=== PATIENT | male | born 1935 | race Caucasian/White ===

== ENCOUNTER → 2019-08-28 10:09 | Outpatient (CLI) | payer MEDICARE, OTHER, SELFPAY ==
--- NOTE | 2019-08-28 | US_ITS ---
APPROVED REPORT Exam Type: Lower Extremity Segmental Pressures Cloth Stretcher: Lacy Hare CRT Indications Claudication: Risk Factors Hypertension Pressures/Indices Right Indices Left Indices Brachial 161.00 mmHg Brachial 164.00 mmHg Low Thigh 183.00 mmHg 1.12 Low Thigh 180.00 mmHg 1.10 Calf 206.00 mmHg 1.26 Calf 198.00 mmHg 1.21 Ankle(PT) 209.00 mmHg 1.27 Ankle(PT) 209.00 mmHg 1.27 Ankle(DP) 141.00 mmHg 0.86 Ankle(DP) 187.00 mmHg 1.14 Digit 129.00 mmHg 0.79 Digit 130.00 mmHg 0.79 Findings R KANE 1.3 L KANE 1.3 R TBI 0.8 L TBI 0.8 NORMAL WAVEFORMS, lower extremity tremors noted thru out exam NORMAL PULSES Conclusion Normal appearing resting noninvasive lower extremity arterial study. Electronically signed by : Noe Mercado MD 08/28/2019 16:08:14
== END ==
PROVIDERS: PCP Family Medicine; Visit Provider Family Medicine
DX: M79.604 Pain in right leg (principal); I70.213 Atherosclerosis of native arteries of extremities with intermittent claudication, bilateral legs
CPT/HCPCS: 93923

== ENCOUNTER 2019-10-09 15:38 | Inpatient (IN) | payer MEDICARE, OTHER, SELFPAY ==
[2019-10-09] VITALS (18 sets, daily range): BP systolic 139–161; BP diastolic 74–100; PULSE 67–98; RESP 14–18; TEMP 36.5–37.1; O2SAT 92–100; BMI 19.2
--- NOTE | 2019-10-09 16:19 | HMH.HP ---
*Admission Date: 10/09/19 <Alona Swift 10/09/19 16:28> *Chief complaint: leg edema and weakness <Alona Swift 10/09/19 16:38> *History of present illness: Mr. Shaw is an 84-year-old male with a history of hypertension, mitral valve prolapse, atrial fibrillation on Xarelto therapy, diverticulosis, and a history of a GI bleed. He states over the past few weeks, he has had increased lower extremity edema that does not improve with elevating his legs. He states he has had some fatigue and weakness in his legs. He denies any shortness of breath, chest pain, dizziness, abdominal pain, dark stools, or bright red blood in his stool. He was seen in the office today for evaluation and a CBC revealed a hemoglobin of 6.3 and hematocrit of 20.6. He was admitted for a surgical consult for possible GI bleed and a blood transfusion. <Alona Swift 10/09/19 16:38> [facility] History I have reviewed the patient's past medical history: Yes <Alona Swift 10/09/19 16:28> Medical History: Reports:: Atrial Fibrillation, Hypertension, Ulcer Denies:: Cancer, Diabetes Mellitus Type 1, Diabetes Mellitus Type 2, MRSA <Alona Swift 10/09/19 16:28> *Have you ever received a pneumonia vaccine?: Yes <Alona Swift 10/09/19 16:28> *Have you received a flu vaccine this season?: Yes <Alona Swift 10/09/19 16:28> Other Medical History: Reports: Anemia <Alona Swift 10/09/19 16:28> Comment:: GI bleed, MVP, basal cell carcinoma, Diverticulosis <Alona Swift 10/09/19 16:28> Other Surgeries: Yes: Colonoscopy, EGD <Alona Swift 10/09/19 16:28> Comment: Upper eye lid <Alona Swift 10/09/19 16:28> - *Social History Educational Level: Attended High School <Alona Swift 10/09/19 16:28> Smoking Status: Never smoker <Alona Swift 10/09/19 16:28> Alcohol Intake: never <Alona Swift 10/09/19 16:28> *Occupational Status:: retired <Alona Swift 10/09/19 16:28> Housing: house <Alona Swift 10/09/19 16:28> Household Members: spouse <Alona Swift 10/09/19 16:28> *Travel in the last 8 weeks: None <Alona Swift 10/09/19 16:28> Family Hx:: Anemia, Stroke, Other (MS) <Alona Swift 10/09/19 16:28> Review of Systems - Constitutional Reports fatigue, Reports weakness, Denies body ache(s), Denies chills <Alona Swift 10/09/19 16:28> - Eyes Denies blurry vision, Denies double vision <Alona Swift 10/09/19 16:28> - ENT Reports nasal congestion, Denies sore throat <Alona Swift 10/09/19 16:28> - *Cardiovascular Reports leg swelling, Denies chest pain, Denies shortness of breath <Alona Swift 10/09/19 16:28> - *Respiratory Denies chest congestion, Denies cough, Denies shortness of breath <Scout Swifta 10/09/19 16:28> - *Gastrointestinal Denies abdominal pain, Denies loose stools, Denies bright, red blood in stools, Denies black, tarry stools, Denies nausea, Denies vomiting <Alona Swift 10/09/19 16:28> - *Genitourinary Denies difficulty urinating, Denies painful urination <Alona Swift 10/09/19 16:28> - *Musculoskeletal Denies joint pain, Denies body aches <Alona Swift 10/09/19 16:28> - *Neurologic Reports weakness, Denies headache(s), Denies dizziness <Alona Swift 10/09/19 16:28> Meds Allergies Allergy/AdvReac Type Severity Reaction Status Date / Time No Known Allergies Allergy Unverified 06/18/17 14:53 <Arturo Sinclair 10/09/19 17:14> Exam Vital signs and Labs for Last 24 Hours: Laboratory Results - last 24 hr 10/09/19 16:10: WBC 7.9, RBC 3.32 L, Hgb 6.7 L*, Hct 24.3 L, MCV 73.1 L, MCH 20.3 L, MCHC 27.7 L, RDW 18.2 H, Plt Count 335, MPV 7.7, Neut % (Auto) 74.4, Lymph % (Auto) 16.7, [place] % (Auto) 7.0, Eos % (Auto) 1.3, Baso % (Auto) 0.6, Neut # (Auto) 5.9, Lymph # (Auto) 1.3, [place] # (Auto) 0.6, Eos # (Auto) 0.1, Baso # (Auto) 0.1 10/09/19 16:10: Sodium 138, Potassium 4.6, Chloride 106, Carbon Dioxide 26, Anion Gap 10.6, BUN 27 H, Creatinine 1.70
--- NOTE | 2019-10-09 16:32 | PC.NURSE ---
called and spoke with Eliana about consult
[2019-10-09 16:38] LABS: Basophils # 0.1 K/mm3 (0-0.2); Basophils % 0.6 % (0.1-2.0); Eosinophils # 0.1 K/mm3 (0.0-0.4); Eosinophils % 1.3 % (0.1-12.0); Hematocrit 24.3 % (42.0-52.0); Lymphocytes # 1.3 K/mm3 (0.7-4.5); Lymphocytes % 16.7 % (10-50); Mean Corpuscular HGB Conc 27.7 g/dL (31.8-35.4); Mean Corpuscular Hemoglobin 20.3 pg (27.0-31.2); Mean Corpuscular Volume 73.1 fl (80-94); Mean Platelet Volume 7.7 fl (7.4-10.4); Monocytes # 0.6 K/mm3 (0.1-1.0); Neutrophils # 5.9 K/mm3 (1.8-7.8); Neutrophils % 74.4 % (37.0-80.0); Platelet Count 335 K/mm3 (142-424); Red Blood Count 3.32 M/mm3 (4.60-6.20); Red Cell Distribution Width 18.2 % (11.5-17.5); White Blood Count 7.9 K/mm3 (4.8-10.8)
[2019-10-09 16:43] LABS: Hemoglobin 6.7 g/dL (14.1-18.0)
[2019-10-09 16:45] LABS: Chloride 106 mmol/L (98-107); Potassium 4.6 mmoL/L (3.5-5.1); Sodium 138 mmol/L (136-145)
[2019-10-09 16:47] LABS: Blood Urea Nitrogen 27 mg/dl (9-20)
[2019-10-09 16:48] LABS: Alanine Aminotransferase 30 U/L (12-78); Albumin/Globulin Ratio 1.2 (1.1-1.8); Alkaline Phosphatase 58 U/L (38-126); Anion Gap 10.6 mEq/L (5-15); Aspartate Amino Transferase 38 U/L (17-59); Bilirubin,Total 0.5 mg/dl (0.2-1.3); Calcium 9.2 mg/dl (8.4-10.2); Carbon Dioxide 26 mmol/L (22.0-30.0); Creatinine Clearance Estimated 29 mL/min (50-200); Estimated Glomerular Filt Rate 39 ml/min (>60); GFR (African American) 47 ML/MIN (>60); Globulin 3.3 g/dL (1.3-3.2); Glucose 89 mg/dl (74-100); Total Protein,Serum 7.3 g/dl (6.3-8.2)
--- NOTE | 2019-10-09 16:57 | HMH.PHAVTE ---
[facility] Pharmacy VTE Monitoring - Patient Demographics Admission date: 10/09/19 Report Date: 10/09/19 Time: 16:57 Allergies/Adverse Reactions: Patient Allergies No Known Allergies Allergy (Unverified 06/18/17 14:53) Height: 1.8 m Weight: 62.596 kg Patient Problems: Current Active Problems Anemia (Acute) Peripheral edema (Acute) Essential hypertension (Chronic) Mitral valve prolapse (Chronic) Chronic atrial fibrillation (Chronic) Diverticulosis (Chronic) History of GI bleed (Chronic) - VTE Risk Labs: VTE Related Lab Results Hgb 6.7 g/dL (14.1-18.0) L* 10/09/19 16:10 Hct 24.3 % (42.0-52.0) L 10/09/19 16:10 Plt Count 335 K/mm3 (142-424) 10/09/19 16:10 BUN 27 mg/dl (9-20) H 10/09/19 16:10 Creatinine 1.70 mg/dl (0.66-1.25) H 10/09/19 16:10 Estimated Creat Clear 29 mL/min (50-200) 10/09/19 16:10 VTE Score: 1 VTE Risk Level: Very Low Risk - Prophylaxis VTE Prophylaxis Ordered?: Yes Types of VTE Prophylaxis: TEDS Knee High Location of Applied Device: Bilateral Lower Extremeties
--- NOTE | 2019-10-09 16:58 | HMH.GSCON ---
*Admission Date: 10/09/19 *Reason for consult:: Anemia *History of present illness: Patient is an 84-year-old male with history of atrial fibrillation for which he is on Xarelto. He does have a previous history of rectal bleeding several years ago. He underwent upper endoscopy at that time which revealed some erosions/punctate ulcerations. However, given the rectal bleeding he underwent colonoscopy as an inpatient the following day. There was noted to be no obvious source but clear visualization of the cecum was difficult. He did undergo barium enema which revealed no evidence of any lesions in the right colon. Patient had been in his usual state of health until recently. He has had progressive weakness in his legs and swelling. He presented to his primary care provider's office and underwent blood work which revealed evidence of diminished hemoglobin of 6.3 and hematocrit of 20. Arrangements were made for inpatient admission and surgical consultation. Patient denies any melena. Denies any change in his bowel habits. Denies any symptoms consistent with hematochezia. Review of Systems - Review of Systems Review of systems:: pertinent systems reviewed and negative unless documented below - *Neurologic Reports weakness, Denies headache(s), Denies dizziness [facility] History Medical History: Reports:: Atrial Fibrillation, Hypertension, Ulcer Denies:: Cancer, Diabetes Mellitus Type 1, Diabetes Mellitus Type 2, MRSA *Have you ever received a pneumonia vaccine?: Yes *Have you received a flu vaccine this season?: Yes Other Medical History: Reports: Anemia Other Surgeries: Yes: Colonoscopy, EGD - *Social History Educational Level: Attended High School Smoking Status: Never smoker Alcohol Intake: never *Occupational Status:: retired Housing: house Household Members: spouse *Travel in the last 8 weeks: None Family Hx:: Anemia, Stroke, Other (MS) Meds Allergies Allergy/AdvReac Type Severity Reaction Status Date / Time No Known Allergies Allergy Unverified 06/18/17 14:53 Exam Vital signs and Labs for Last 24 Hours: Laboratory Results - last 24 hr 10/09/19 16:10: WBC 7.9, RBC 3.32 L, Hgb 6.7 L*, Hct 24.3 L, MCV 73.1 L, MCH 20.3 L, MCHC 27.7 L, RDW 18.2 H, Plt Count 335, MPV 7.7, Neut % (Auto) 74.4, Lymph % (Auto) 16.7, [place] % (Auto) 7.0, Eos % (Auto) 1.3, Baso % (Auto) 0.6, Neut # (Auto) 5.9, Lymph # (Auto) 1.3, [place] # (Auto) 0.6, Eos # (Auto) 0.1, Baso # (Auto) 0.1 10/09/19 16:10: Sodium 138, Potassium 4.6, Chloride 106, Carbon Dioxide 26, Anion Gap 10.6, BUN 27 H, Creatinine 1.70 H, Estimated Creat Clear 29, Estimated GFR 39 L, Est GFR ( Amer) 47 L, Glucose 89, Calcium 9.2, Total Bilirubin 0.5, AST 38, ALT 30, Alkaline Phosphatase 58, Total Protein 7.3, Albumin 4.0, Globulin 3.3 H, Albumin/Globulin Ratio 1.2 10/09/19 16:22: Crossmatch ([facility]) See Detail I & O for Last 24 hours: Intake & Output 10/07/19 10/08/19 10/09/19 10/10/19 11:59 11:59 11:59 11:59 Weight 138 lb - *Routine Abdominal Exam Present: soft, normoactive bowel sounds. Absent: tenderness Results - Labs 10/09/19 16:10 10/09/19 16:10 Laboratory Results - last 24 hr 10/09/19 16:10: WBC 7.9, RBC 3.32 L, Hgb 6.7 L*, Hct 24.3 L, MCV 73.1 L, MCH 20.3 L, MCHC 27.7 L, RDW 18.2 H, Plt Count 335, MPV 7.7, Neut % (Auto) 74.4, Lymph % (Auto) 16.7, [place] % (Auto) 7.0, Eos % (Auto) 1.3, Baso % (Auto) 0.6, Neut # (Auto) 5.9, Lymph # (Auto) 1.3, [place] # (Auto) 0.6, Eos # (Auto) 0.1, Baso # (Auto) 0.1 10/09/19 16:10: Sodium 138, Potassium 4.6, Chloride 106, Carbon Dioxide 26, Anion Gap 10.6, BUN 27 H, Creatinine 1.70 H, Estimated Creat Clear 29, Estimated GFR 39 L, Est GFR ( Amer) 47 L, Glucose 89, Calcium 9.2, Total Bilirubin 0.5, AST 38, ALT 30, Alkaline Phosphatase 58, Total Protein 7.3, Albumin 4.0, Globulin 3.3 H, Albumin/Globulin Ratio 1.2 10/09/19 16:22: Crossmatch ([facility]) See Detail Assessment and Plan (1) Anemia Current visit: Yes Statu
--- NOTE | 2019-10-09 19:10 | PC.NURSE ---
report given to alton
--- NOTE | 2019-10-09 19:24 | PC.NURSE ---
Addendum entered by Eliana Harris RN 10/09/19 20:12: THIS RN DID NOT CLEAR PATIENT PUMP TO DOCUMENT I&OS AT SHIFT CHANGE. PATIENT IS RECEIVING BLOOD DURING THAT TIME. VANDANA CANCHOLA AGREED TO ADD THIS RN INPUT FROM IV AT END OF SHIFT. Original Note: PATIENT ARRIVED ON FLOOR VIA WHEELCHAIR. PATIENT A&O X4, LUNGS CLEAR, PULSES EQUAL. PATIENT AMBULATED IN ROOM, UNSTEADY GAIT, WEAK. THIS RN STARTED BLOOD TRANSFUSION, NO SIDE EFFECTS NOTED, TOLERATING WELL. NO OTHER NEEDS OR CONCERNS AT THIS TIME.
[2019-10-10] VITALS (16 sets, daily range): BP systolic 125–164; BP diastolic 71–98; PULSE 62–98; RESP 14–18; TEMP 36.4–37; O2SAT 94–100; BMI 19.5
--- NOTE | 2019-10-10 05:26 | PC.NURSE ---
PT IS A&OX4. UP WITH STANDBY ASSIST IN ROOM. PT TOLERATING RA WELL. PT HAS HAD NO C/O PAIN, WEAKNESS, NA/VO THIS SHIFT. PT HAS NOT HAD A BM THUS FAR THIS SHIFT. +2 PITTING EDEMA NOTED TO BLE. LEGS ELEVATED T/O SHIFT. PT HAS RECIEVED 3 UNITS OF PRBC THIS SHIFT. PT HAS TOLERATED WELL. INTAKE AND OUTPUT BEING MONITORED BY STAFF. PT TOLERATING NPO DIET AFTER MIDNIGHT WELL. PT HAS BEEN SLIGHTLY RESTLESS T/O NIGHT. NO OTHER COMPLAINTS THUS FAR, VSS WILL CONTINUE TO MONITOR.
[2019-10-10 07:05] LABS: Chloride 109 mmol/L (98-107); Potassium 4.8 mmoL/L (3.5-5.1); Sodium 138 mmol/L (136-145)
[2019-10-10 07:08] LABS: Anion Gap 7.8 mEq/L (5-15); Blood Urea Nitrogen 21 mg/dl (9-20); Calcium 8.6 mg/dl (8.4-10.2); Carbon Dioxide 26 mmol/L (22.0-30.0); Creatinine Clearance Estimated 31 mL/min (50-200); Estimated Glomerular Filt Rate 41 ml/min (>60); GFR (African American) 50 ML/MIN (>60); Glucose 92 mg/dl (74-100)
[2019-10-10 07:13] LABS: Basophils % 0.4 % (0.1-2.0); Eosinophils # 0.1 K/mm3 (0.0-0.4); Eosinophils % 1.1 % (0.1-12.0); Hematocrit 30.8 % (42.0-52.0); Lymphocytes % 12.3 % (10-50); Mean Corpuscular HGB Conc 28.9 g/dL (31.8-35.4); Mean Corpuscular Volume 79.8 fl (80-94); Mean Platelet Volume 7.6 fl (7.4-10.4); Monocytes # 0.7 K/mm3 (0.1-1.0); Monocytes % 8.8 % (1.7-9.3); Neutrophils # 6.2 K/mm3 (1.8-7.8); Neutrophils % 77.3 % (37.0-80.0); Platelet Count 247 K/mm3 (142-424); Red Blood Count 3.86 M/mm3 (4.60-6.20); White Blood Count 8.1 K/mm3 (4.8-10.8)
[2019-10-10 07:14] LABS: Hemoglobin 8.9 g/dL (14.1-18.0)
--- NOTE | 2019-10-10 07:45 | HMH.GSPN ---
Subjective Narrative: Mr. Shaw is an 84-year-old male admitted to [facility] for anemia and fatigue; relatively asymptomatic. Reports additional bilateral lower extremity edema. Symptoms have been ongoing for approximately 2 to 3 weeks. Today is hospital day #2. Main complaint is being hungry. No significant events overnight. Patient has medication history for Xarelto. Endoscopy history reviewed with Dr. Hinojosa. Reportedly normal colonoscopy approximately 3 years ago with subsequent barium enema to evaluate cecum. Patient has received blood transfusion. Hemoglobin + hematocrit have responded appropriately. Exam Vital signs and Labs for Last 24 Hours: Temp Pulse Resp BP Pulse Ox 97.9 F 93 H 18 125/82 94 L 10/10/19 04:00 10/10/19 04:00 10/10/19 04:00 10/10/19 04:00 10/10/19 04:00 Laboratory Results - last 24 hr 10/09/19 16:10: WBC 7.9, RBC 3.32 L, Hgb 6.7 L*, Hct 24.3 L, MCV 73.1 L, MCH 20.3 L, MCHC 27.7 L, RDW 18.2 H, Plt Count 335, MPV 7.7, Neut % (Auto) 74.4, Lymph % (Auto) 16.7, [place] % (Auto) 7.0, Eos % (Auto) 1.3, Baso % (Auto) 0.6, Neut # (Auto) 5.9, Lymph # (Auto) 1.3, [place] # (Auto) 0.6, Eos # (Auto) 0.1, Baso # (Auto) 0.1 10/09/19 16:10: Sodium 138, Potassium 4.6, Chloride 106, Carbon Dioxide 26, Anion Gap 10.6, BUN 27 H, Creatinine 1.70 H, Estimated Creat Clear 29, Estimated GFR 39 L, Est GFR ( Amer) 47 L, Glucose 89, Calcium 9.2, Total Bilirubin 0.5, AST 38, ALT 30, Alkaline Phosphatase 58, Total Protein 7.3, Albumin 4.0, Globulin 3.3 H, Albumin/Globulin Ratio 1.2 10/09/19 16:22: Blood Type A Positive, Antibody Screen Negative, Crossmatch ([facility]) See Detail 10/09/19 17:15: Blood Type Confirm A Positive 10/10/19 06:42: WBC 8.1, RBC 3.86 L, Hgb 8.9 L D, Hct 30.8 L, MCV 79.8 L, MCH 23.0 L, MCHC 28.9 L, RDW 20.0 H, Plt Count 247 D, MPV 7.6, Neut % (Auto) 77.3, Lymph % (Auto) 12.3, [place] % (Auto) 8.8, Eos % (Auto) 1.1, Baso % (Auto) 0.4, Neut # (Auto) 6.2, Lymph # (Auto) 1.0, [place] # (Auto) 0.7, Eos # (Auto) 0.1, Baso # (Auto) 0.0 10/10/19 06:42: Sodium 138, Potassium 4.8, Chloride 109 H, Carbon Dioxide 26, Anion Gap 7.8, BUN 21 H, Creatinine 1.60 H, Estimated Creat Clear 31, Estimated GFR 41 L, Est GFR ( Amer) 50 L, Glucose 92, Calcium 8.6 I & O for Last 24 hours: Intake & Output 10/07/19 10/08/19 10/09/19 10/10/19 11:59 11:59 11:59 11:59 Intake Total 359 / 359 Output Total 350 / 350 Balance Weight 63.503 kg - Constitutional Comments: Nontoxic. Nonseptic. No distress. - *Routine Abdominal Exam Comments: Soft. Nontender. Nondistended. Progress Note: A&P (1) Anemia Status: Acute Current Visit: Yes (2) Peripheral edema Status: Acute Current Visit: Yes (3) Essential hypertension Status: Chronic Current Visit: Yes (4) Mitral valve prolapse Status: Chronic Current Visit: Yes (5) Chronic atrial fibrillation Status: Chronic Current Visit: Yes (6) Diverticulosis Status: Chronic Current Visit: Yes (7) History of GI bleed Status: Chronic Current Visit: Yes Assessment and Plan for All Diagnoses:: 1. Chronic anemia. Likely related to upper or lower GI bleed based on history. Recommend EGD and colonoscopy; utility of colonoscopy may be low, however, last colonoscopy was in 2016 and complete visualization of the cecum was not obtained. At this time, patient can be managed with outpatient endoscopy scheduling. No indication for emergent intervention. From perspective of surgery, Xarelto will need to be held at minimum 24 hours prior to endoscopic procedure.
--- NOTE | 2019-10-10 09:18 | HMH.ACPN2 ---
Internal Medicine - PN: Subj *Date: 10/10/19 *Time: 09:18 Interval history: Patient with no new complaints. Feels hungry today. Exam Vital signs and Labs for Last 24 Hours: Temp Pulse Resp BP Pulse Ox 97.6 F 94 H 18 138/82 94 L 10/10/19 08:00 10/10/19 08:00 10/10/19 08:00 10/10/19 08:00 10/10/19 08:00 Laboratory Results - last 24 hr 10/09/19 16:10: WBC 7.9, RBC 3.32 L, Hgb 6.7 L*, Hct 24.3 L, MCV 73.1 L, MCH 20.3 L, MCHC 27.7 L, RDW 18.2 H, Plt Count 335, MPV 7.7, Neut % (Auto) 74.4, Lymph % (Auto) 16.7, [place] % (Auto) 7.0, Eos % (Auto) 1.3, Baso % (Auto) 0.6, Neut # (Auto) 5.9, Lymph # (Auto) 1.3, [place] # (Auto) 0.6, Eos # (Auto) 0.1, Baso # (Auto) 0.1 10/09/19 16:10: Sodium 138, Potassium 4.6, Chloride 106, Carbon Dioxide 26, Anion Gap 10.6, BUN 27 H, Creatinine 1.70 H, Estimated Creat Clear 29, Estimated GFR 39 L, Est GFR ( Amer) 47 L, Glucose 89, Calcium 9.2, Total Bilirubin 0.5, AST 38, ALT 30, Alkaline Phosphatase 58, Total Protein 7.3, Albumin 4.0, Globulin 3.3 H, Albumin/Globulin Ratio 1.2 10/09/19 16:22: Blood Type A Positive, Antibody Screen Negative, Crossmatch ([facility]) See Detail 10/09/19 17:15: Blood Type Confirm A Positive 10/10/19 06:42: WBC 8.1, RBC 3.86 L, Hgb 8.9 L D, Hct 30.8 L, MCV 79.8 L, MCH 23.0 L, MCHC 28.9 L, RDW 20.0 H, Plt Count 247 D, MPV 7.6, Neut % (Auto) 77.3, Lymph % (Auto) 12.3, [place] % (Auto) 8.8, Eos % (Auto) 1.1, Baso % (Auto) 0.4, Neut # (Auto) 6.2, Lymph # (Auto) 1.0, [place] # (Auto) 0.7, Eos # (Auto) 0.1, Baso # (Auto) 0.0 10/10/19 06:42: Sodium 138, Potassium 4.8, Chloride 109 H, Carbon Dioxide 26, Anion Gap 7.8, BUN 21 H, Creatinine 1.60 H, Estimated Creat Clear 31, Estimated GFR 41 L, Est GFR ( Amer) 50 L, Glucose 92, Calcium 8.6 I & O for Last 24 hours: Intake & Output 10/07/19 10/08/19 10/09/19 10/10/19 23:59 23:59 23:59 23:59 Intake Total 0 / 359 359 / 359 Output Total 650 / 650 Balance 0 / 359 -291 / -291 Weight 138 lb 140 lb - Constitutional no acute distress - *Routine HEENT Exam Head: Present: normocephalic Eye: Present: EOMI ENT: Present: mucous membranes moist - *Routine Neck Exam Present: supple. Absent: lymphadenopathy - *Routine Respiratory Exam Present: CTA bilaterally - *Routine Cardiovascular Exam Present: RRR - *Routine Abdominal Exam Present: soft, normoactive bowel sounds. Absent: tenderness - *Routine Extremities Exam Absent: cyanosis, clubbing, edema - *Routine Skin Exam Present: warm. Absent: rash - *Routine Neurological Exam Present: alert, oriented X3 Assessment and Plan (1) Anemia Current visit: Yes Status: Acute Category: Medical Code(s): D64.9 - Anemia, unspecified (2) Peripheral edema Current visit: Yes Status: Acute Category: Medical Code(s): R60.9 - Edema, unspecified (3) Essential hypertension Current visit: Yes Status: Chronic Category: Medical Code(s): I10 - Essential (primary) hypertension (4) Mitral valve prolapse Current visit: Yes Status: Chronic Category: Medical Code(s): I34.1 - Nonrheumatic mitral (valve) prolapse (5) Chronic atrial fibrillation Current visit: Yes Status: Chronic Category: Medical Code(s): I48.20 - Chronic atrial fibrillation, unspecified (6) Diverticulosis Current visit: Yes Status: Chronic Category: Medical Code(s): K57.90 - Diverticulosis of intestine, part unspecified, without perforation or abscess without bleeding (7) History of GI bleed Current visit: Yes Status: Chronic Category: Medical Code(s): Z87.19 - Personal history of other diseases of the digestive system - Assessment and plan all Dx Assessment and Plan for all problems:: Plan to feed patient today and recheck labs tomorrow. Would prefer to have EGD done during this admission as patient has been off of Xarelto and outpatient procedures are restricted at this time.
--- NOTE | 2019-10-10 11:04 | HMH.PHAINT ---
HOME MEDICATIONS RECONCILED FROM FILL HISTORY AND FROM PATIENT.
--- NOTE | 2019-10-10 15:30 | PC.NURSE ---
Pt has rested in bed this shift, slept intermittently. Denies pain/shortness of breath. States he is very bored and wants to go home . Advised him that MD will make that decision tomorrow morning after his labs results are read. Pt verbalized understanding.
[2019-10-11 03:55] VITALS: BP 152/98; PULSE 99; RESP 18; TEMP 36.7; O2SAT 94
--- NOTE | 2019-10-11 04:59 | PC.NURSE ---
PT. HAS NOT HAD BM THIS SHIFT. AMBULATES TO/FROM BR WITH STANDBY ASSIST; TOLERATES WELL. HYPERACTIVE BOWEL SOUNDS NOTED; DENIES ABD TENDERNESS, N/V/D, SOA, PAIN AND DIZZINESS.
[2019-10-11 06:25] VITALS: BMI 19.2
[2019-10-11 07:07] LABS: Basophils % 0.4 % (0.1-2.0); Eosinophils # 0.2 K/mm3 (0.0-0.4); Eosinophils % 1.9 % (0.1-12.0); Hematocrit 32.9 % (42.0-52.0); Hemoglobin 9.3 g/dL (14.1-18.0); Lymphocytes # 0.9 K/mm3 (0.7-4.5); Lymphocytes % 10.4 % (10-50); Mean Corpuscular HGB Conc 28.4 g/dL (31.8-35.4); Mean Platelet Volume 7.7 fl (7.4-10.4); Monocytes # 0.9 K/mm3 (0.1-1.0); Monocytes % 9.5 % (1.7-9.3); Neutrophils # 6.9 K/mm3 (1.8-7.8); Neutrophils % 77.9 % (37.0-80.0); Platelet Count 264 K/mm3 (142-424); Red Blood Count 4.06 M/mm3 (4.60-6.20); Red Cell Distribution Width 20.6 % (11.5-17.5); White Blood Count 8.9 K/mm3 (4.8-10.8)
[2019-10-11 07:17] LABS: Anion Gap 8.2 mEq/L (5-15); Blood Urea Nitrogen 19 mg/dl (9-20); Calcium 8.5 mg/dl (8.4-10.2); Carbon Dioxide 28 mmol/L (22.0-30.0); Chloride 106 mmol/L (98-107); Creatinine Clearance Estimated 33 mL/min (50-200); Estimated Glomerular Filt Rate 45 ml/min (>60); GFR (African American) 54 ML/MIN (>60); Glucose 100 mg/dl (74-100); Potassium 4.2 mmoL/L (3.5-5.1); Sodium 138 mmol/L (136-145)
[2019-10-11 08:00] VITALS: BP 160/88; PULSE 89; RESP 17; TEMP 36.7; O2SAT 95
--- NOTE | 2019-10-11 10:21 | HMH.ACPN2 ---
Internal Medicine - PN: Subj *Date: 10/11/19 *Time: 10:21 Interval history: Patient with no new complaints today. No bowel movements. He is hungry and is anxious to go home. Patient has not had EGD done. Exam Vital signs and Labs for Last 24 Hours: Temp Pulse Resp BP Pulse Ox 98.1 F 89 17 160/88 H 95 10/11/19 08:00 10/11/19 08:00 10/11/19 08:00 10/11/19 08:00 10/11/19 08:00 Laboratory Results - last 24 hr 10/11/19 06:19: WBC 8.9, RBC 4.06 L, Hgb 9.3 L, Hct 32.9 L, MCV 81.0, MCH 23.0 L, MCHC 28.4 L, RDW 20.6 H, Plt Count 264, MPV 7.7, Neut % (Auto) 77.9, Lymph % (Auto) 10.4, [place] % (Auto) 9.5 H, Eos % (Auto) 1.9, Baso % (Auto) 0.4, Neut # (Auto) 6.9, Lymph # (Auto) 0.9, [place] # (Auto) 0.9, Eos # (Auto) 0.2, Baso # (Auto) 0.0 10/11/19 06:19: Sodium 138, Potassium 4.2, Chloride 106, Carbon Dioxide 28, Anion Gap 8.2, BUN 19, Creatinine 1.50 H, Estimated Creat Clear 33, Estimated GFR 45 L, Est GFR ( Amer) 54 L, Glucose 100, Calcium 8.5 I & O for Last 24 hours: Intake & Output 10/08/19 10/09/19 10/10/19 10/11/19 23:59 23:59 23:59 23:59 Intake Total 0 / 359 1704 / 1704 426 / 426 Output Total 1610 / 1610 400 / 400 Balance 0 / 359 94 / 94 26 / 26 Weight 138 lb 140 lb 137 lb 2 oz - Constitutional no acute distress - *Routine HEENT Exam Head: Present: normocephalic Eye: Present: EOMI ENT: Present: mucous membranes moist - *Routine Neck Exam Present: supple. Absent: lymphadenopathy - *Routine Respiratory Exam Present: CTA bilaterally - *Routine Cardiovascular Exam Present: RRR - *Routine Abdominal Exam Present: soft, normoactive bowel sounds. Absent: tenderness - *Routine Extremities Exam Absent: cyanosis, clubbing, edema - *Routine Skin Exam Present: warm. Absent: rash - *Routine Neurological Exam Present: alert, oriented X3 Assessment and Plan (1) Anemia Current visit: Yes Status: Acute Category: Medical Code(s): D64.9 - Anemia, unspecified (2) Peripheral edema Current visit: Yes Status: Acute Category: Medical Code(s): R60.9 - Edema, unspecified (3) Essential hypertension Current visit: Yes Status: Chronic Category: Medical Code(s): I10 - Essential (primary) hypertension (4) Mitral valve prolapse Current visit: Yes Status: Chronic Category: Medical Code(s): I34.1 - Nonrheumatic mitral (valve) prolapse (5) Chronic atrial fibrillation Current visit: Yes Status: Chronic Category: Medical Code(s): I48.20 - Chronic atrial fibrillation, unspecified (6) Diverticulosis Current visit: Yes Status: Chronic Category: Medical Code(s): K57.90 - Diverticulosis of intestine, part unspecified, without perforation or abscess without bleeding (7) History of GI bleed Current visit: Yes Status: Chronic Category: Medical Code(s): Z87.19 - Personal history of other diseases of the digestive system - Assessment and plan all Dx Assessment and Plan for all problems:: Plan to feed patient now and discharge him home today with PPI twice daily. Discussed risk with patient and preference to have EGD done during this admission but he is unwilling to spend another day and night in the hospital. Plan to hold Xarelto as hopefully scope can be done in the next day or two.
--- NOTE | 2019-10-12 08:33 | HMH.DCSUM ---
General - General Admission date:: 10/09/19 Discharge date: 10/11/19 HPI HPI: Mr. Shaw is an 84-year-old male with a history of hypertension, mitral valve prolapse, atrial fibrillation on Xarelto therapy, diverticulosis, and a history of a GI bleed. He stated that over the previous few weeks, he had increased lower extremity edema that did not improve with elevating his legs. He stated that he had some fatigue and weakness in his legs. He denied any shortness of breath, chest pain, dizziness, abdominal pain, dark stools, or bright red blood in his stool. He was seen in the office for evaluation and a CBC revealed a hemoglobin of 6.3 and hematocrit of 20.6. He was admitted for a surgical consult for possible GI bleed and a blood transfusion. Hospital Course Hospital Course: After admission the patient was given 3 units of packed red blood cells and surgery was consulted. Xarelto was on hold. He was started on Protonix IV twice daily as well as IV fluids. Patient was noted to have had previous history of rectal bleeding several years ago at which time he underwent an upper endoscopy which revealed some erosions/punctuate ulcerations. He also had a colonoscopy at that time with no obvious source of bleeding but without clear visualization of the cecum followed by a barium enema which revealed no evidence of any lesions in the right colon. Surgeons note indicated chronic anemia likely related to upper or lower GI bleed based on patient's history. He recommended an EGD and colonoscopy. He felt the patient could be managed with outpatient scheduling. He did not feel emergent intervention was necessary. He recommended Xarelto be held a minimum of 24 hours prior to endoscopic procedure. Patient did begin to feel hungry and diet was advanced. Notation was made that EGD be done during admission since he had been off the Xarelto and because of outpatient procedure restrictions due to Covid 19. On 10/11/2019 patient had no new complaints. He had had no bowel movements or signs of blood loss. He was hungry and anxious to go home. Hemoglobin was stable after 3 units of packed red blood cells. Plan was to feed patient and discharge him home with PPI twice daily. Risks were discussed with the patient with preference to have the EGD completed during current admission. Patient was unwilling to spend another day and night in the hospital. Plan was to hold the Xarelto and hopefully perform endoscopy within the next 2 days. Patient was discharged to home in stable and satisfactory condition. He was to continue with his current diet. He was to hold his Xarelto and continue with PPI twice daily. He was to follow-up with Dr. Sinclair and Dr. Hinojosa. Medications as per medication reconciliation list. Objective Vital signs: Temp Pulse Resp BP Pulse Ox 98.1 F 89 17 160/88 H 95 10/11/19 08:00 10/11/19 08:00 10/11/19 08:00 10/11/19 08:00 10/11/19 08:00 Narrative: Exam Vital signs and Labs for Last 24 Hours: Temp Pulse Resp BP Pulse Ox 98.1 F 89 17 160/88 H 95 10/11/19 08:00 10/11/19 08:00 10/11/19 08:00 10/11/19 08:00 10/11/19 08:00 Laboratory Results - last 24 hr 10/11/19 06:19: WBC 8.9, RBC 4.06 L, Hgb 9.3 L, Hct 32.9 L, MCV 81.0, MCH 23.0 L, MCHC 28.4 L, RDW 20.6 H, Plt Count 264, MPV 7.7, Neut % (Auto) 77.9, Lymph % (Auto) 10.4, [place] % (Auto) 9.5 H, Eos % (Auto) 1.9, Baso % (Auto) 0.4, Neut # (Auto) 6.9, Lymph # (Auto) 0.9, [place] # (Auto) 0.9, Eos # (Auto) 0.2, Baso # (Auto) 0.0 10/11/19 06:19: Sodium 138, Potassium 4.2, Chloride 106, Carbon Dioxide 28, Anion Gap 8.2, BUN 19, Creatinine 1.50 H, Estimated Creat Clear 33, Estimated GFR 45 L, Est GFR ( Amer) 54 L, Glucose 100, Calcium 8.5 I & O for Last 24 hours: Intake & Output 10/08/19 10/09/19 10/10/19 10/11/19 23:59 23:59 23:59 23:59 Intake Total 0 / 359 1704 / 1704 426 / 426 Output Total 1610 / 1610 400 / 400
--- NOTE | 2019-10-13 09:48 | HMH.SCOPE ---
- Procedure: Date: 10/13/19 Procedure Performed:: Esophagogastroduodenoscopy Total colonoscopy to terminal ileum with polypectomy by biopsy forceps Indications:: Patient is an 84-year-old male with history of atrial fibrillation for which he is on Xarelto. He does have a previous history of rectal bleeding several years ago. He underwent upper endoscopy at that time which revealed some erosions/punctate ulcerations. However, given the rectal bleeding he underwent colonoscopy as an inpatient the following day. There was noted to be no obvious source but clear visualization of the cecum was difficult. He did undergo barium enema which revealed no evidence of any lesions in the right colon. Patient had been in his usual state of health until recently. He has had progressive weakness in his legs and swelling. He presented to his primary care provider's office and underwent blood work which revealed evidence of diminished hemoglobin of 6.3 and hematocrit of 20 in PCPs office. Arrangements were made for inpatient admission and surgical consultation. Patient denies any melena. Denies any change in his bowel habits. Denies any symptoms consistent with hematochezia. Upon admission to the floor his hemoglobin was 6.7. Patient was transfused 3 units packed red blood cells with stabilizing hemoglobin of 9.3. Plan was for outpatient endoscopic evaluation for potential GI source of blood loss. Performing Provider:: Aaron Hinojosa MD Referring Provider:: Arturo Sinclair MD Sedation:: Propofol Procedure:: Patient was taken to endoscopy procedure room. He was positioned in a lateral decubitus position. Adequate intravenous sedation was achieved with anesthesia titration of propofol. Attention was first turned to upper endoscopy. Olympus endoscope was inserted via the oropharynx. It was advanced through the esophagus. Esophagus appeared unremarkable. Stomach was cannulated and insufflated. Retroflexion revealed no evidence of any appreciable hiatal hernia. There was no significant gastritis, erosions, or ulcerations. Pylorus was traversed. Endoscope was advanced to the third portion of the duodenum which appeared unremarkable. Endoscope was withdrawn with inspection of the duodenum which appeared unremarkable. Stomach was desufflated and endoscope was withdrawn. Overall upper endoscopy relatively unremarkable. Next attention was turned to colonoscopy. Patient was repositioned. Digital examination was performed which revealed diminished sphincter tone. Variable stiffness Olympus colonoscope was inserted via the anus. With some difficulty due to profound floppiness and atony of the colon the colonoscope was ultimately advanced to the cecum. During insertion and advancement of the colonoscope there appeared to be possible polyp. He was noted to have a rather large right inguinal hernia. There is some minor irritation of the cecum possibly due to intermittent herniation. Ileocecal valve and appendiceal orifice were clearly identified. Colonoscope was advanced into the terminal ileum briefly which appeared grossly normal. Colonoscope was slowly withdrawn through the colon with very careful surveillance. There was noted to be some sigmoid diverticuli and previously noted mucosal irritation. However once the colonoscope was withdrawn to the rectum no polyp had been encountered. Therefore, once again with appreciable difficulty due to the floppiness of the colon the colonoscope was advanced all the way to the cecum once again. It was very slowly carefully withdrawn through the colon with careful surveillance carried out. There was a small diminutive polyp in the distal transverse colon near the splenic flexure which was removed with a cold biopsy forceps. As previously noted there was some left-sided diverticuli. Retroflexion within the rectum revealed internal hemorrhoids which appeared to be nonbleeding. Colonoscope was withdrawn. [place]
== END 2019-10-11 12:04 | disposition home or self-care (01) | DRG 812 ==
PROVIDERS: Admitting Provider Family Medicine; PCP Family Medicine; Visit Provider Family Medicine
DX: D64.9 Anemia, unspecified (principal); I48.20 Chronic atrial fibrillation, unspecified; I10 Essential (primary) hypertension; Z79.01 Long term (current) use of anticoagulants; I34.1 Nonrheumatic mitral (valve) prolapse; Z79.899 Other long term (current) drug therapy; K57.30 Diverticulosis of large intestine without perforation or abscess without bleeding
CPT/HCPCS: 36430; 36415; 80048; 80053; 85025; 86850; P9016

== ENCOUNTER 2019-10-13 06:58 | Day surgery (SDC) | payer MEDICARE, OTHER, SELFPAY ==
[2019-10-12 13:57] VITALS: BMI 19.5
[2019-10-13] VITALS (9 sets, daily range): BP systolic 89–178; BP diastolic 54–108; PULSE 87–110; RESP 18; TEMP 36.1–36.6; O2SAT 92–99
--- NOTE | 2019-10-13 07:23 | P.PN_ITS ---
[facility] Anesthesia Checklist - Patient Identification Patient Identification: Arm Band, Verbal (Name & ) - Structural Data Admitted From: Home Planned Operative Procedure/s: egd/colon Consent for Planned Operative Procedure(s) Verified: Yes Verified Documents: History and Physical - NPO Status Verified Time NPO: 00:00 - Additional verifications Patient : No Anesthesia Reactions: No Hx Blood Transfusions: No Blood Transfusion Reaction: No Cephalosporin Allergy: No Previous Colonoscopy: Yes - Cardiovascular Assessment Pulse Strength: Baseline Pulse Rhythm: Irregular Peripheral Edema: No - Airway Assessment C-Spine Mobility Assessed: Yes TMJ Mobility Assessed: Yes Dentition: Edentulous - Neurological Assessment Level of Consciousness: Awake, Alert, Appropriate Hx Seizures: No Numbness or tingling in extremities: No - Anesthesia Plan Anesthesia Risk discussed: Yes Anesthesia Plan: Verified ASA Class: III Anesthesia Type: [facility] History I have reviewed the patient's past medical history: Yes Medical History: Reports:: Atrial Fibrillation, Hypertension, Ulcer Denies:: Cancer, Diabetes Mellitus Type 1, Diabetes Mellitus Type 2, Internal Pacemaker, MRSA *Have you ever received a pneumonia vaccine?: Yes *Have you received a flu vaccine this season?: Yes Other Medical History: Reports: Anemia Anesthesia experience/problems:: none Other Surgeries: Yes: Colonoscopy, EGD. No: Pacemaker Amputation: No Fractures: No - *Social History Smoking Status: Never smoker Alcohol Intake: never Substance Use Type: other *Occupational Status:: retired Housing: house Household Members: spouse *Travel in the last 8 weeks: None Family Hx:: Unable to obtain
--- NOTE | 2019-10-13 09:50 | PC.NURSE ---
pt asleep at this time, Arina Galvin [employer] MACHINE reports d/t length of procedure pt may remain sedated longer than usual. Respiration even, unlabored. L lateral with bear paws heater in place for comfort. at bedside.
--- NOTE | 2019-10-13 10:49 | SUR.PHASEII ---
JUANPABLO Galvin BUSINESS ADMINISTRATION PROGRAM CHAIR to update on pt's lethargy, restlessness, and confusion. BUSINESS ADMINISTRATION PROGRAM CHAIR said these SE are normal r/t the increased amt of Propofol he rec'd in the OR. Continue to monitor.
--- NOTE | 2019-10-30 08:43 | HMH.SCOPE ---
- Procedure: Date: 10/13/19 Procedure Performed:: Esophagogastroduodenoscopy Total colonoscopy to terminal ileum with polypectomy by biopsy forceps Indications:: Patient is an 84-year-old male with history of atrial fibrillation for which he is on Xarelto. He does have a previous history of rectal bleeding several years ago. He underwent upper endoscopy at that time which revealed some erosions/punctate ulcerations. However, given the rectal bleeding he underwent colonoscopy as an inpatient the following day. There was noted to be no obvious source but clear visualization of the cecum was difficult. He did undergo barium enema which revealed no evidence of any lesions in the right colon. Patient had been in his usual state of health until recently. He has had progressive weakness in his legs and swelling. He presented to his primary care provider's office and underwent blood work which revealed evidence of diminished hemoglobin of 6.3 and hematocrit of 20 in PCPs office. Arrangements were made for inpatient admission and surgical consultation. Patient denies any melena. Denies any change in his bowel habits. Denies any symptoms consistent with hematochezia. Upon admission to the floor his hemoglobin was 6.7. Patient was transfused 3 units packed red blood cells with stabilizing hemoglobin of 9.3. Plan was for outpatient endoscopic evaluation for potential GI source of blood loss. Performing Provider:: Aaron Hinojosa MD Referring Provider:: Arturo Sinclair MD Sedation:: Propofol Procedure:: Patient was taken to endoscopy procedure room. He was positioned in a lateral decubitus position. Adequate intravenous sedation was achieved with anesthesia titration of propofol. Attention was first turned to upper endoscopy. Olympus endoscope was inserted via the oropharynx. It was advanced through the esophagus. Esophagus appeared unremarkable. Stomach was cannulated and insufflated. Retroflexion revealed no evidence of any appreciable hiatal hernia. There was no significant gastritis, erosions, or ulcerations. Pylorus was traversed. Endoscope was advanced to the third portion of the duodenum which appeared unremarkable. Endoscope was withdrawn with inspection of the duodenum which appeared unremarkable. Stomach was desufflated and endoscope was withdrawn. Overall upper endoscopy relatively unremarkable. Next attention was turned to colonoscopy. Patient was repositioned. Digital examination was performed which revealed diminished sphincter tone. Variable stiffness Olympus colonoscope was inserted via the anus. With some difficulty due to profound floppiness and atony of the colon the colonoscope was ultimately advanced to the cecum. During insertion and advancement of the colonoscope there appeared to be possible polyp. He was noted to have a rather large right inguinal hernia. There is some minor irritation of the cecum possibly due to intermittent herniation. Ileocecal valve and appendiceal orifice were clearly identified. Colonoscope was advanced into the terminal ileum briefly which appeared grossly normal. Colonoscope was slowly withdrawn through the colon with very careful surveillance. There was noted to be some sigmoid diverticuli and previously noted mucosal irritation. However once the colonoscope was withdrawn to the rectum no polyp had been encountered. Therefore, once again with appreciable difficulty due to the floppiness of the colon the colonoscope was advanced all the way to the cecum once again. It was very slowly carefully withdrawn through the colon with careful surveillance carried out. There was a small diminutive polyp in the distal transverse colon near the splenic flexure which was removed with a cold biopsy forceps. As previously noted there was some left-sided diverticuli. Retroflexion within the rectum revealed internal hemorrhoids which appeared to be nonbleeding. Colonoscope was withdrawn. Find
== END 2019-10-13 11:30 | disposition home or self-care (01) ==
LOC: OUTP 06:59
PROVIDERS: PCP Family Medicine; Visit Provider Surgery
PROC: 0DJ08ZZ Inspection of Upper Intestinal Tract, Via Natural or Artificial Opening Endoscopic (ICD-10-PCS; CPT 43235; principal; 2019-10-13 08:00)
DX: D64.9 Anemia, unspecified (principal); I10 Essential (primary) hypertension; Z79.01 Long term (current) use of anticoagulants; D12.3 Benign neoplasm of transverse colon; K57.30 Diverticulosis of large intestine without perforation or abscess without bleeding; I48.20 Chronic atrial fibrillation, unspecified
CPT/HCPCS: 44376; 45380; 88305; J2704

== ENCOUNTER → 2019-11-03 08:38 | Outpatient (CLI) | payer MEDICARE, OTHER, SELFPAY ==
--- NOTE | 2019-11-03 08:47 | FL_ITS ---
PROCEDURE: FL SMALL BOWEL FOLLOW THROUGH CLINICAL INDICATION: abdominal pain GI bleed COMPARISON: No exams were available for comparison FINDINGS: Fluoroscopy time: 1 minutes and 5 seconds Transporter Radiology exam shows 2 right renal calculi measuring 5 mm in the upper pole and 7 mm in the lower pole. Small bowel has an unremarkable appearance. No obstructing lesions mucosal abnormalities or masses are evident. The small bowel appears to dip into the right inguinal region where there is a suspected hernia containing a bit of small bowel and cecum. IMPRESSION: Right inguinal hernia containing small portion of cecum and small bowel otherwise negative. No bowel obstruction Dictated by: Noe Mercado MD 11/03/2019 16:47 Electronically signed by Noe Mercado MD in [place] 11/03/2019 16:47
== END ==
PROVIDERS: PCP Family Medicine; Visit Provider Surgery
DX: Z87.19 Personal history of other diseases of the digestive system (principal)
CPT/HCPCS: 74250

== ENCOUNTER 2020-11-05 16:55 | Emergency (ER) | payer MEDICARE, OTHER, SELFPAY ==
[2020-11-05 16:56] VITALS: BP 162/88; PULSE 85; RESP 18; TEMP 36.6; O2SAT 97; BMI 16.9
--- NOTE | 2020-11-05 16:59 | HMH.EDGENADL ---
ED Disposition Clinical Impression: Hematuria Qualifiers: Hematuria type: gross Qualified Code(s): R31.0 - Gross hematuria UTI (urinary tract infection) Qualifiers: Urinary tract infection type: acute cystitis Hematuria presence: with hematuria Qualified Code(s): N30.01 - Acute cystitis with hematuria Disposition: Home, Self-Care Condition on Discharge: Good Referrals: Arturo Sinclair MD [Primary Care Provider] - 3 days Time of Disposition: 18:11 - Critical Care Critical Care Time: No Attestation: On , the high probability of a clinically significant, sudden or life threatening deterioration of the following system(s) required my full and direct attention, intervention and personal management. The time I documented below is in addition to time spent performing reported procedures but includes the following listed in this critical care notation. Medical Decision Making - Medical Records Medical records reviewed: Yes: I reviewed the patient's medical records. - Nima Inquiry Pt receiving controlled substance: No Vital Signs: 11/05/20 16:56 Temperature 97.8 F Temperature Source Oral Pulse Rate [Right Radial] 85 Respiratory Rate 18 Blood Pressure [Right Arm] 162/88 H Blood Pressure Mean [Right Arm] 112 Blood Pressure Source [Right Arm] Automatic Cuff Blood Pressure Position [Right Arm] Sitting 02 Sat by Pulse Oximetry 97 Oxygen Delivery Method Room Air - Lab Data Lab results reviewed: Yes: I reviewed the patient's lab results. Lab Results 11/05/20 17:06: Urine Color Red, Urine Appearance Cloudy, Urine pH 6.5, Ur Specific [place] 1.025, Urine Protein 2+, Urine Glucose (UA) Negative, Urine Ketones Negative, Urine Blood 3+, Urine Nitrate Positive, Urine Bilirubin 1+ A, Urine Urobilinogen 1.0, Ur Leukocyte Esterase Trace, Urine RBC Tntc, Urine WBC Occasional, Ur Squamous Epith Cells 3-5, Amorphous Sediment 1+, Urine Bacteria 1+ 11/05/20 17:20: WBC 6.2, RBC 4.17 L, Hgb 12.2 L, Hct 37.5 L, MCV 90.1, MCH 29.4, MCHC 32.6, RDW 14.0, Plt Count 200, MPV 7.7, Neut % (Auto) 68.7, Lymph % (Auto) 21.6, [place] % (Auto) 8.3, Eos % (Auto) 1.1, Baso % (Auto) 0.3, Neut # (Auto) 4.3, Lymph # (Auto) 1.3, [place] # (Auto) 0.5, Eos # (Auto) 0.1, Baso # (Auto) 0.0 Result diagrams: 11/05/20 17:20 Medical Decision Narrative: 85yo M presents the emergency department secondary to hematuria. Patient's vital signs are unremarkable. He is in no acute distress on initial evaluation. UA and CBC are collected. Urinalysis consistent with urinary tract infection and has gross blood. CBC shows a normal H/H. Patient be started on antibiotics in the emergency department and discharged home with a prescription for antibiotics. Encouraged to follow with PCP in 2 to 3 days. Also discussed holding his anticoagulation medication for at least 3 days or until his PCP directs him otherwise. General Adult HPI - General Stated complaint: blood in urine Time Seen by Provider: 11/05/20 16:59 Mode of Arrival: Ambulatory Source of Information: Patient - History of Present Illness HPI narrative: 85yo M presents the emergency department secondary to hematuria. Patient denies any pain or other symptoms of being ill. Reports he was working outside when he came in to use the restroom and noticed he had dark red urine. He reports a previous episode of this in 2017. He had a urinary tract infection that was treated with antibiotics. Patient does take a blood thinner and has been on for several years. - Related Data Home Medications Medication Instructions Recorded Confirmed Metoprolol Succinate 100 mg PO DAILY 10/09/19 11/05/20 lisinopriL [Lisinopril 5mg 5 mg PO DAILY 10/09/19 11/05/20 Tablet] Pantoprazole Sodium [Protonix 40mg 40 mg PO BID 10/12/19 11/05/20 tablet] rivaroxaban 20 mg tablet 20 mg PO DAILY 10/26/19 11/05/20 Pantoprazole Sodium 40 mg PO DAILY 11/05/20 11/05/20 Allergies Allergy/AdvReac Type Severity Reaction St
[2020-11-05 17:17] LABS: Microscopic, Urine URINE MICROSCOPIC (MICROSCOPIC)
[2020-11-05 17:20] LABS: Appearance,Urine CLOUDY (Clear); Blood, Urine 3+ (Negative); Color,Urine RED (Yellow); Glucose,Urine (UA) Negative (Negative); Ketones,Urine Negative (Negative); Leukocyte Esterase,Urine TRACE (Negative); Nitrate,Urine POSITIVE (Negative); PH,Urine 6.5 (5.0-8.5); Protein,Urine 2+ (Negative); Specific Gravity, Urine 1.025 (1.005-1.030)
[2020-11-05 17:21] LABS: Bilirubin,Urine 1+ (Negative)
[2020-11-05 17:29] LABS: RBC,Urine TNTC #/hpf (0-3); WBC,Urine Occasional #/hpf (0-3)
[2020-11-05 17:30] LABS: Amorphous Sediment,Urine 1+ /lpf; Bacteria,Urine 1+ /lpf
[2020-11-05 18:00] LABS: Basophils % 0.3 % (0.1-2.0); Eosinophils # 0.1 K/mm3 (0.0-0.4); Eosinophils % 1.1 % (0.1-12.0); Hematocrit 37.5 % (42.0-52.0); Hemoglobin 12.2 g/dL (14.1-18.0); Lymphocytes # 1.3 K/mm3 (0.7-4.5); Lymphocytes % 21.6 % (10-50); Mean Corpuscular HGB Conc 32.6 g/dL (31.8-35.4); Mean Corpuscular Hemoglobin 29.4 pg (27.0-31.2); Mean Corpuscular Volume 90.1 fl (80-94); Mean Platelet Volume 7.7 fl (7.4-10.4); Monocytes # 0.5 K/mm3 (0.1-1.0); Monocytes % 8.3 % (1.7-9.3); Neutrophils # 4.3 K/mm3 (1.8-7.8); Neutrophils % 68.7 % (37.0-80.0); Platelet Count 200 K/mm3 (142-424); Red Blood Count 4.17 M/mm3 (4.60-6.20); White Blood Count 6.2 K/mm3 (4.8-10.8)
[2020-11-05 19:03] VITALS: BP 132/74; PULSE 78; RESP 16; TEMP 36.6; O2SAT 98
== END 2020-11-05 19:04 | disposition home or self-care (01) ==
PROVIDERS: Emergency Provider Family Medicine; PCP Family Medicine
DX: N30.01 Acute cystitis with hematuria (principal); I10 Essential (primary) hypertension; I48.91 Unspecified atrial fibrillation
CPT/HCPCS: 81001; 85025; 99282

== ENCOUNTER 2021-07-08 03:38 | Emergency (ER) | payer MEDICARE, OTHER, SELFPAY ==
[2021-07-08 03:39] VITALS: BP 182/100; PULSE 104; RESP 18; TEMP 36.5; O2SAT 96; BMI 16.7
--- NOTE | 2021-07-08 04:25 | HMH.EDEPIS ---
ED Disposition Clinical Impression: Epistaxis Disposition: Home, Self-Care Condition on Discharge: Good Instructions: DI for Nosebleed Additional Instructions: see pcp for follow up Referrals: Arturo Sinclair MD [Primary Care Provider] - - Critical Care Critical Care Time: No Attestation: On 07/08/21, the high probability of a clinically significant, sudden or life threatening deterioration of the following system(s) required my full and direct attention, intervention and personal management. The time I documented below is in addition to time spent performing reported procedures but includes the following listed in this critical care notation. Medical Decision Making - Medical Records Medical records reviewed: Yes: I reviewed the patient's medical records. - Nima Inquiry Pt receiving controlled substance: No Vital Signs: 07/08/21 03:39 Temperature 97.7 F Temperature Source Oral Pulse Rate [Right] 104 H Respiratory Rate 18 Blood Pressure [Right Arm] 182/100 H Blood Pressure Mean [Right Arm] 127 02 Sat by Pulse Oximetry 96 - Lab Data Lab results reviewed: Yes: I reviewed the patient's lab results. Orders (Tests/Meds): ED MEDICATIONS Discontinued Medications Generic Name Dose Route Start Last Admin Trade Name Freq PRN Reason Stop Dose Admin Cocaine HCl 4 ml 07/08/21 04:56 07/08/21 04:58 Cocaine 4% Topical Soln 4ml Bottle TP 07/08/21 04:57 4 ml ONCE ONE Administration Oxymetazoline HCl 2 ml 07/08/21 04:56 07/08/21 04:58 Oxymetazoline Nasal [place] 0.05% 15ml NS 07/08/21 04:57 2 ml ONCE ONE Administration Medical Decision Narrative: clot removed from throat and ant nose clear after cocaine - post throat remained clear Epistaxis HPI - General Chief complaint: Epistaxis Stated complaint: Nosebleed;Spitting up blood Time Seen by Provider: 07/08/21 04:05 Mode of Arrival: Ambulatory Source of Information: Patient, Medical Record Limitations: No Limitations Description of Symptoms (Recalled from ER Triage Doc. by RN): pt c/o bilateral nose bleed that started @ 1am this morning - History of Present Illness HPI Narrative: nosebleed this am on xarelto - no trauma complaint: epistaxis Location: bilateral nostril Onset (ago): hour(s) Duration: intermittent Context: other anticoagulant use Treatment prior to arrival: nose pinching - Related Data Home Medications Medication Instructions Recorded Confirmed Metoprolol Succinate 100 mg PO DAILY 10/09/19 11/05/20 lisinopriL [Lisinopril 5mg 5 mg PO DAILY 10/09/19 11/05/20 Tablet] Pantoprazole Sodium [Protonix 40mg 40 mg PO BID 10/12/19 11/05/20 tablet] rivaroxaban 20 mg tablet 20 mg PO DAILY 10/26/19 11/05/20 Pantoprazole Sodium 40 mg PO DAILY 11/05/20 11/05/20 Previous Rx's Medication Instructions Recorded Doxycycline Hyclate [Doxycycline 100 mg PO Q12 #14 cap 11/05/20 100mg Capsule] Allergies Allergy/AdvReac Type Severity Reaction Status Date / Time No Known Allergies Allergy Unverified 11/13/19 11:11 [facility] [place] History - Hepatitis A Screen Drug use history?: No High risk sexual behaviors?: No History of sexually transmitted infection?: No Currently employed?: No Childcare worker?: No Do you have indoor plumbing?: Yes Do you have electricity?: Yes Attestation statement:: This patient has been screened for Hepatitis A risk factors. I have reviewed the patient's past medical history: Yes Medical History: Reports:: Atrial Fibrillation, Hypertension, Ulcer Denies:: Cancer, Diabetes Mellitus Type 1, Diabetes Mellitus Type 2, Internal Pacemaker, MRSA, Seizures Other Medical History: Reports: Anemia. Denies: Blood Transfusion Reaction Comment: GI bleed, MVP, basal cell carcinoma, Diverticulosis Other Surgeries: Yes: Colonoscopy, EGD. No: Pacemaker Amputation: No Fractures: No Comment: Upper eye lid - Social History Smoking Status: Never smoker Alcohol Intake:
[2021-07-08 05:21] VITALS: BP 182/100; PULSE 106; RESP 20; TEMP 36.7; O2SAT 97
== END 2021-07-08 05:24 | disposition home or self-care (01) ==
PROVIDERS: Emergency Provider Emergency Medicine; PCP Family Medicine
DX: R04.0 Epistaxis (principal); I10 Essential (primary) hypertension; I48.91 Unspecified atrial fibrillation
CPT/HCPCS: 30901; 99281

== ENCOUNTER 2022-10-09 08:57 | Day surgery (SDC) | payer MEDICARE, OTHER, SELFPAY ==
[2022-10-03 13:22] VITALS: BMI 18.6
[2022-10-09 09:26] VITALS: BP 165/94; PULSE 71; RESP 18; TEMP 36.8; O2SAT 91
[2022-10-09 10:12] VITALS: BP 154/81; PULSE 74; RESP 16; O2SAT 99
[2022-10-09 10:15] VITALS: BP 160/93; PULSE 86; RESP 17; O2SAT 100
[2022-10-09 10:20] VITALS: BP 148/74; PULSE 71; RESP 17; O2SAT 100
[2022-10-09 10:25] VITALS: BP 156/75; PULSE 79; RESP 17; O2SAT 100
[2022-10-09 10:30] VITALS: BP 136/73; PULSE 69; RESP 18; TEMP 36.6; O2SAT 100
== END 2022-10-09 10:45 | disposition home or self-care (01) ==
PROVIDERS: PCP Family Medicine; Visit Provider Ophthalmology
DX: H25.813 Combined forms of age-related cataract, bilateral (principal)
CPT/HCPCS: 66984; V2632

== ENCOUNTER 2022-10-23 09:14 | Day surgery (SDC) | payer MEDICARE, OTHER, SELFPAY ==
[2022-10-19 14:06] VITALS: BMI 18.1
[2022-10-23 10:12] VITALS: BP 169/98; PULSE 81; RESP 18; TEMP 36.6; O2SAT 96
[2022-10-23 11:32] VITALS: BP 158/87; PULSE 79; RESP 16; O2SAT 99
[2022-10-23 11:35] VITALS: BP 174/97; PULSE 63; RESP 16; O2SAT 100
[2022-10-23 11:40] VITALS: BP 158/99; PULSE 65; RESP 16; O2SAT 100
[2022-10-23 11:45] VITALS: BP 159/97; PULSE 76; RESP 16; O2SAT 100
[2022-10-23 11:51] VITALS: BP 143/95; PULSE 72; RESP 18; TEMP 36.2; O2SAT 100
== END 2022-10-23 12:10 | disposition home or self-care (01) ==
PROVIDERS: PCP Family Medicine; Visit Provider Ophthalmology
DX: H25.812 Combined forms of age-related cataract, left eye (principal); Z79.899 Other long term (current) drug therapy
CPT/HCPCS: 66984; V2632

== ENCOUNTER 2023-09-25 13:14 | Emergency (ER) | payer MEDICARE, OTHER, SELFPAY ==
[2023-09-25] VITALS (7 sets, daily range): BP systolic 113–147; BP diastolic 70–96; PULSE 67–102; RESP 15–22; TEMP 36.7; O2SAT 92–99; BMI 16.0
--- NOTE | 2023-09-25 13:34 | CT_ITS ---
FINAL REPORT TECHNIQUE: Postcontrast axial images through the abdomen and pelvis were performed. This study was performed with techniques to keep radiation doses as low as reasonably achievable, (ALARA). Individualized dose reduction techniques using automated exposure control or adjustment of mA and/or kV according to the patient's size were employed. CLINICAL HISTORY: abd pain/n/v/daniela FINDINGS: Abdomen: The lung bases are clear. There is multi chamber cardiomegaly. There is scarring at both lung bases, left greater than right. The liver is normal in size and attenuation. The gallbladder is contracted. The spleen is unremarkable. There is abnormal nodular enlargement of the left adrenal gland measuring 2.3 x 1.8 cm. There is a small cystic structure in the mid body of the pancreas measuring about 8 mm, probably related to a small epithelial cyst. There are multiple cystic structures throughout both kidneys, largest measures 2.0 cm. There is a nonobstructing 6 mm right kidney stone. The aorta is normal in caliber. No free fluid or adenopathy is identified. No findings for mechanical bowel obstruction are identified. Pelvis: The appendix is not identified. The urinary bladder is incompletely distended. No free fluid, free air, abscess or adenopathy is identified. IMPRESSION: Bibasilar pulmonary scarring. 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 Dedicated adrenal protocol CT is recommended. Multitude of bilateral renal cysts, may be related to polycystic kidney disease. Right kidney stones measuring up to 6 mm. Reviewed, Interpreted and Dictated by Emiilano Gresham MD Transcribed by Sulma Shane Authenticated and [facility]
[2023-09-25 13:39] LABS: Microscopic, Urine URINE MICROSCOPIC (MICROSCOPIC)
[2023-09-25 13:41] LABS: Basophils % 0.3 % (0.1-2.0); Eosinophils % 0.5 % (0.1-12.0); Hematocrit 44.2 % (42.0-52.0); Lymphocytes # 1.1 K/mm3 (0.7-4.5); Lymphocytes % 13.6 % (10-50); Mean Corpuscular HGB Conc 31.7 g/dL (31.8-35.4); Mean Corpuscular Hemoglobin 31.4 pg (27.0-31.2); Mean Corpuscular Volume 99.1 fl (80-94); Mean Platelet Volume 8.7 fl (7.4-10.4); Monocytes # 0.4 K/mm3 (0.1-1.0); Monocytes % 5.1 % (1.7-9.3); Neutrophils # 6.4 K/mm3 (1.8-7.8); Neutrophils % 80.5 % (37.0-80.0); Platelet Count 208 K/mm3 (142-424); Red Blood Count 4.46 M/mm3 (4.60-6.20); White Blood Count 7.9 K/mm3 (4.8-10.8)
[2023-09-25 13:41] LABS: Coronavirus 19, PCR Not Detected (NotDetected); Influenza A, PCR Not Detected (NotDetected); Influenza B, PCR Not Detected (NotDetected)
[2023-09-25 13:44] LABS: Chloride 112 mmol/L (98-107); Potassium 4.6 mmoL/L (3.5-5.1); Sodium 143 mmol/L (136-145)
[2023-09-25 13:45] LABS: Appearance,Urine CLEAR (Clear); Blood, Urine 3+ (Negative); Color,Urine YELLOW (Yellow); Glucose,Urine (UA) Negative (Negative); Ketones,Urine TRACE (Negative); Leukocyte Esterase,Urine Negative (Negative); Nitrate,Urine Negative (Negative); PH,Urine 5.5 (5.0-8.5); Protein,Urine 2+ (Negative); Specific Gravity, Urine >= 1.030 (1.005-1.030); Urobilinogen,Urine 0.2 EU/dl (0.2)
[2023-09-25 13:47] LABS: Alanine Aminotransferase 33 U/L (12-78); Albumin Level 4.1 g/dl (3.5-5.0); Albumin/Globulin Ratio 1.2 (1.1-1.8); Alkaline Phosphatase 77 U/L (38-126); Anion Gap 13.6 mEq/L (5-15); Aspartate Amino Transferase 45 U/L (17-59); Bilirubin,Total 0.9 mg/dl (0.2-1.3); Blood Urea Nitrogen 50 mg/dl (9-20); Calcium 9.5 mg/dl (8.4-10.2); Carbon Dioxide 22 mmol/L (22.0-30.0); Creatinine Clearance Estimated 19 mL/min (50-200); Estimated Glomerular Filt Rate 32 ml/min (>60); GFR (African American) 38 ML/MIN (>60); Globulin 3.3 g/dL (1.3-3.2); Glucose 83 mg/dl (74-100); Lipase 152 U/L (23-300); Total Protein,Serum 7.4 g/dl (6.3-8.2)
--- NOTE | 2023-09-25 13:47 | HMH.EDGENADL ---
Discharge Plan Disposition Patient Disposition: Home, Self-Care Chief Complaint: Nausea/Vomiting/Diarrhea Prescriptions Prescriptions: No Action rivaroxaban 20 mg tablet 20 mg PO DAILY metoprolol succinate 100 MG tablet extended release 24 hr 100 mg PO DAILY pantoprazole 40 MG tablet,delayed release (DR/EC) 40 mg PO DAILY Referrals Follow up/Referrals: Arturo Sinclair MD [Primary Care Provider] - See instructions Activity Restrictions/Add. Instructions Additional Instructions/Restrictions: Take antidiarrheals including Imodium or Lomotil as described on packaging. Call your family doctor to establish care for this visit to the emergency department and schedule follow-up within 48 hours to ensure improvement. If you have any worsening of your condition or any other concerning signs or symptoms, return to the emergency department or your primary care doctor for further evaluation. Talk to your family doctor about your kidney cysts and left adrenal mass for further evaluation. Clinical Impressions Clinical Impression: Nausea, vomiting and diarrhea, Acute kidney injury superimposed on CKD, Atrial fibrillation with RVR Instructions Patient Instructions: DI for Diarrhea and Traveler's Diarrhea -- Adult, DI for Diarrhea and Traveler's Diarrhea -- Child, DI for Nausea -- Adult, DI for Nausea -- Child Discharge ED Provider: Nav Obrien General Adult HPI <Joelle Valenzuela, - Last Filed: 09/25/23 15:21> General Chief complaint: Nausea/Vomiting/Diarrhea Stated complaint: abd pain, diarrhea Time Seen by Provider: 09/25/23 13:19 Mode of Arrival: Ambulatory Source of Information: Patient Limitations: No Limitations Description of Symptoms (Recalled from ER Triage Doc. by RN): pt presents to ED with c/o diarrhea, nausea, vomitting. pt reports stomach is sore, but no pain. pt called his pcp sammie and was told by the nurse to come check in for further evaluation. History of Present Illness HPI narrative: This patient is an 88-year-old male with a history of atrial fibrillation on metoprolol and Xarelto, mitral valve prolapse, hypertension, and diverticulitis presenting with concern for abdominal pain, nausea, vomiting, and diarrhea that started Saturday night. Patient reports that he felt fine all day Saturday, but Saturday night nausea, vomiting, and diarrhea hit him. He states that he thought he was better yesterday, but last night he tried to eat chicken noodle soup and immediately started having diarrhea again. He states he has discomfort in his lower abdomen. No fevers, chills, chest pain, shortness of breath, melena, hematochezia, or other concerns. No urinary symptoms. Of note, he did not take his medications, including metoprolol today. Related Data Home Medications Medication Instructions Recorded Confirmed metoprolol succinate 100 mg 100 mg PO DAILY High blood pressure 10/09/19 09/25/23 tablet,extended release 24 hr rivaroxaban 20 mg tablet 20 mg PO DAILY afib 10/26/19 09/25/23 pantoprazole 40 mg tablet,delayed 40 mg PO DAILY stomach 11/05/20 09/25/23 release Allergies Allergy/AdvReac Type Severity Reaction Status Date / Time aspirin Allergy Verified 09/25/23 14:08 [facility], [facility] <Joelle Valenzuela DO - Last Filed: 09/25/23 15:21> [facility] Disclaimer: The information contained in this section may have been updated after the patient was seen, as this information can be updated by other users. Medical History No significant past medical history Atrial fibrillation Skin cancer Surgical History History of eyelid surgery Family History Other Family history of hypertension Social History Smoking Status: Never smoker alcohol intake: never substance use type: denies use and other current occupational status: retired Travel in the last 8 weeks: None household members: spouse housing: house lives independently: No education level: middle school current occupational exposures/hazards: No caffeine: Yes special kusum needs: No agree to transfusion: No do you feel safe at home: Yes victim of physical abuse: No victim of emotional abuse: No victim of sexual abuse: No would you like helpful sources: No <Joelle Valenzuela DO - Last Filed: 09/25/23 15:21> ROS Obtained: Yes All systems reviewed & no additional complaints except as documented Physical Exam <Joelle Valenzuela DO - Last Filed: 09/25/23 15:21> General General appearance: alert and in no apparent distress Comment: thin, frail Head Head exam: atraumatic and normocephalic Eye Eye exam: Present normal appearance, PERRL and EOMI ENT ENT exam: Present normal exam, normal oropharynx, mucous membranes moist and normal external ear exam Neck Neck exam: Present normal inspection, full ROM and trachea midline; Absent tenderness Chest Chest inspection: Present normal inspection and symmetric chest wall rise; Absent tenderness Respiratory Respiratory exam: Present normal lung sounds bilaterally; Absent respiratory distress, wheezes, stridor or accessory muscle use Cardiovascular Cardiovascular exam: Present tachycardia and irregular rhythm Abdominal Exam Abdominal exam: Present soft; Absent distention, tenderness, guarding, rebound or rigidity Extremities Exam Extremities exam: Present normal inspection, full ROM and normal capillary refill; Absent tenderness or edema Back Exam Back exam: Present normal inspection and full ROM; Absent tenderness Neurological Exam Neurological exam: Present alert, oriented X3, CN II-XII intact and normal gait; Absent motor sensory deficit Psychiatric Psychiatric exam: Present normal affect and normal mood Skin Skin exam: Present warm and dry Medical Decision Making <Joelle Valenzuela, DO - Last Filed: 09/25/23 15:21> Medical Records Medical records reviewed: Yes I reviewed the patient's medical records. Nima Inquiry Pt receiving controlled substance: No Vital Signs: 09/25/23 13:16 09/25/23 14:00 09/25/23 14:30 Temperature 98.1 F Temperature Source Oral Pulse Rate 98 H 86 Pulse Rate [Left Radial] 67 Respiratory Rate 15 19 17 Blood Pressure 122/77 113/75 Blood Pressure [Right Arm] 134/75 Blood Pressure Mean 92 Blood Pressure Mean [Right Arm] 94 02 Sat by Pulse Oximetry 96 98 95 Oxygen Delivery Method Room Air Room Air Room Air 09/25/23 15:00 09/25/23 15:30 Temperature Temperature Source Pulse Rate 95 H Pulse Rate [Left Radial] Respiratory Rate 22 Blood Pressure 119/70 125/70 Blood Pressure [Right Arm] Blood Pressure Mean 88 88 Blood Pressure Mean [Right Arm] 02 Sat by Pulse Oximetry 94 L 92 L Oxygen Delivery Method Room Air Lab Data Lab results reviewed: Yes I reviewed the patient's lab results. Lab Results 09/25/23 13:20: Urine Color Yellow, Urine Appearance Clear, Urine pH 5.5, Ur Specific [place] >= 1.030, Urine Protein 2+, Urine Glucose (UA) Negative, Urine Ketones Trace, Urine Blood 3+, Urine Nitrate Negative, Urine Bilirubin 1+ A, Urine Urobilinogen 0.2, Ur Leukocyte Esterase Negative, Urine RBC 20-50, Urine WBC 3-5, Ur Squamous Epith Cells 3-5, Urine Bacteria 1+ 09/25/23 13:27: WBC 7.9, RBC 4.46 L, Hgb 14.0 L, Hct 44.2, MCV 99.1 H, MCH 31.4 H, MCHC 31.7 L, RDW 14.0, Plt Count 208, MPV 8.7, Neut % (Auto) 80.5 H, Lymph % (Auto) 13.6, [place] % (Auto) 5.1, Eos % (Auto) 0.5, Baso % (Auto) 0.3, Neut # (Auto) 6.4, Lymph # (Auto) 1.1, [place] # (Auto) 0.4, Eos # (Auto) 0.0, Baso # (Auto) 0.0, Sodium 143, Potassium 4.6, Chloride 112 H, Carbon Dioxide 22, Anion Gap 13.6, BUN 50 H, Creatinine 2.00 H, Estimated Creat Clear 19, Estimated GFR 32 L, Est GFR ( Amer) 38 L, Glucose 83, Lactate 1.2, Calcium 9.5, Magnesium 2.0, Total Bilirubin 0.9, AST 45, ALT 33, Alkaline Phosphatase 77, Total Protein 7.4, Albumin 4.1, Globulin 3.3 H, Albumin/Globulin Ratio 1.2, Lipase 152 09/25/23 13:38: SARS-CoV-2 (PCR) Not detected, Influenza A Untype (PCR) Not detected, Influenza Type B (PCR) Not detected 09/25/23 13:27 09/25/23 13:27 Orders (Tests/Meds): ED MEDICATIONS Discontinued Medications Generic Name Dose Route Start Last Admin Trade Name Freq PRN Reason Stop Dose Admin Lactated Ringer's 1,000 mls @ 999 mls/hr 09/25/23 13:47 09/25/23 14:01 Lactated Ringer's 1000 Ml Bag IV 09/25/23 14:47 999 mls/hr .Q1H1M ONE Administration Lactated Ringer's 1,000 mls @ 999 mls/hr 09/25/23 14:38 09/25/23 15:08 Lactated Ringer's 1000 Ml Bag IV 09/25/23 15:38 999 mls/hr .Q1H1M ONE Administration Iopamidol 60 ml 09/25/23 14:26 09/25/23 14:27 Iopamidol-370 (76%);100ml Bottle IV 09/25/23 14:27 60 ml ONCE ONE Administration Ondansetron HCl 4 mg 09/25/23 13:58 09/25/23 14:00 Ondansetron 4mg/2ml Vial IV 09/25/23 13:59 4 mg ONCE ONE Administration Sodium Chloride 10 ml 09/25/23 14:26 09/25/23 14:27 Sodium Chloride 0.9% 10ml Syr (Rad Only) IV 09/25/23 14:27 10 ml ONCE ONE Administration ORDERS Category Date Time Status CT abdomen pelvis w con Stat Cat Scan 09/25/23 13:34 Completed Complete Blood Count Auto Diff Stat Lab 09/25/23 13:27 Completed Comprehensive Metabolic Panel Stat Lab 09/25/23 13:27 Completed Diarrhea 6-11 Panel, Cdiff PCR Stat Lab 09/25/23 13:47 Ordered Lactic Acid Stat Lab 09/25/23 13:27 Completed Lipase Stat Lab 09/25/23 13:27 Completed Magnesium Stat Lab 09/25/23 13:27 Completed Rapid PCR Covid and Flu A/B Stat Lab 09/25/23 13:38 Completed Urinalysis and Microscopic Stat Lab 09/25/23 13:20 Completed ECG Data Tracing #1: I reviewed this ECG and interpreted as documented below: Atrial fibrillation with a ventricular rate of 112 bpm. Right bundle branch block noted. No acute ST changes concerning for ischemia at this time. ECG initial impression date: 09/25/23 ECG initial impression time: 13:51 Medical Decision Narrative: In summary, this patient is a 88-year-old male presenting to the Emergency Department for evaluation of lower abdominal discomfort, nausea, vomiting, and diarrhea. Differential diagnoses considered include but are not limited to bacterial gastroenteritis, viral gastroenteritis, colitis, diverticulitis, dehydration, electrolyte derangements. Ruling out the most morbid conditions drove assessment. On exam, the patient is thin and frail with dry mucous membranes. He has an irregularly irregular heart rate. He has not taken his metoprolol today. He has it in hand and is asking if he can take it, which I feel is appropriate at this time. Workup included CBC, CMP, lipase, magnesium, urinalysis, and CT abdomen pelvis with IV contrast. EKG was obtained and straits atrial fibrillation with RVR but no other acute concerns. patient was given a bolus of IV fluids. Labs demonstrated ÓSCAR with a creatinine of 2 up from baseline of around 1.5. Patient also has hematuria on urinalysis without obvious concerns for infection. On reassessment, patient had improvement in his heart rate after taking his home metoprolol and administration of IV fluids. A second liter bolus of IV fluids was administered with concern for dehydration given ÓSCAR, hemoconcentration on lab evaluation, and his dry appearance on exam. At this time, CT scan is still pending. Patient presented to the oncoming provider, Dr. Obrien. <Nav Obrien MD - Last Filed: 09/25/23 16:35> Vital Signs: 09/25/23 13:16 09/25/23 14:00 09/25/23 14:30 Temperature 98.1 F Temperature Source Oral Pulse Rate 98 H 86 Pulse Rate [Left Radial] 67 Respiratory Rate 15 19 17 Blood Pressure 122/77 113/75 Blood Pressure [Right Arm] 134/75 Blood Pressure Mean 92 Blood Pressure Mean [Right Arm] 94 02 Sat by Pulse Oximetry 96 98 95 Oxygen Delivery Method Room Air Room Air Room Air 09/25/23 15:00 09/25/23 15:30 Temperature Temperature Source Pulse Rate 95 H Pulse Rate [Left Radial] Respiratory Rate 22 Blood Pressure 119/70 125/70 Blood Pressure [Right Arm] Blood Pressure Mean 88 88 Blood Pressure Mean [Right Arm] 02 Sat by Pulse Oximetry 94 L 92 L Oxygen Delivery Method Room Air Lab Data Lab Results 09/25/23 13:20: Urine Color Yellow, Urine Appearance Clear, Urine pH 5.5, Ur Specific [place] >= 1.030, Urine Protein 2+, Urine Glucose (UA) Negative, Urine Ketones Trace, Urine Blood 3+, Urine Nitrate Negative, Urine Bilirubin 1+ A, Urine Urobilinogen 0.2, Ur Leukocyte Esterase Negative, Urine RBC 20-50, Urine WBC 3-5, Ur Squamous Epith Cells 3-5, Urine Bacteria 1+ 09/25/23 13:27: WBC 7.9, RBC 4.46 L, Hgb 14.0 L, Hct 44.2, MCV 99.1 H, MCH 31.4 H, MCHC 31.7 L, RDW 14.0, Plt Count 208, MPV 8.7, Neut % (Auto) 80.5 H, Lymph % (Auto) 13.6, [place] % (Auto) 5.1, Eos % (Auto) 0.5, Baso % (Auto) 0.3, Neut # (Auto) 6.4, Lymph # (Auto) 1.1, [place] # (Auto) 0.4, Eos # (Auto) 0.0, Baso # (Auto) 0.0, Sodium 143, Potassium 4.6, Chloride 112 H, Carbon Dioxide 22, Anion Gap 13.6, BUN 50 H, Creatinine 2.00 H, Estimated Creat Clear 19, Estimated GFR 32 L, Est GFR ( Amer) 38 L, Glucose 83, Lactate 1.2, Calcium 9.5, Magnesium 2.0, Total Bilirubin 0.9, AST 45, ALT 33, Alkaline Phosphatase 77, Total Protein 7.4, Albumin 4.1, Globulin 3.3 H, Albumin/Globulin Ratio 1.2, Lipase 152 09/25/23 13:38: SARS-CoV-2 (PCR) Not detected, Influenza A Untype (PCR) Not detected, Influenza Type B (PCR) Not detected Orders (Tests/Meds): ED MEDICATIONS Discontinued Medications Generic Name Dose Route Start Last Admin Trade Name Freq PRN Reason Stop Dose Admin Lactated Ringer's 1,000 mls @ 999 mls/hr 09/25/23 13:47 09/25/23 14:01 Lactated Ringer's 1000 Ml Bag IV 09/25/23 14:47 999 mls/hr .Q1H1M ONE Administration Lactated Ringer's 1,000 mls @ 999 mls/hr 09/25/23 14:38 09/25/23 15:08 Lactated Ringer's 1000 Ml Bag IV 09/25/23 15:38 999 mls/hr .Q1H1M ONE Administration Iopamidol 60 ml 09/25/23 14:26 09/25/23 14:27 Iopamidol-370 (76%);100ml Bottle IV 09/25/23 14:27 60 ml ONCE ONE Administration Ondansetron HCl 4 mg 09/25/23 13:58 09/25/23 14:00 Ondansetron 4mg/2ml Vial IV 09/25/23 13:59 4 mg ONCE ONE Administration Sodium Chloride 10 ml 09/25/23 14:26 09/25/23 14:27 Sodium Chloride 0.9% 10ml Syr (Rad Only) IV 09/25/23 14:27 10 ml ONCE ONE Administration ORDERS Category Date Time Status CT abdomen pelvis w con Stat Cat Scan 09/25/23 13:34 Completed Complete Blood Count Auto Diff Stat Lab 09/25/23 13:27 Completed Comprehensive Metabolic Panel Stat Lab 09/25/23 13:27 Completed Diarrhea 6-11 Panel, Cdiff PCR Stat Lab 09/25/23 13:47 Ordered Lactic Acid Stat Lab 09/25/23 13:27 Completed Lipase Stat Lab 09/25/23 13:27 Completed Magnesium Stat Lab 09/25/23 13:27 Completed Rapid PCR Covid and Flu A/B Stat Lab 09/25/23 13:38 Completed Urinalysis and Microscopic Stat Lab 09/25/23 13:20 Completed Medical Decision Narrative: In summary, this patient is a 88-year-old male presenting to the Emergency Department for evaluation of lower abdominal discomfort, nausea, vomiting, and diarrhea. Differential diagnoses considered include but are not limited to bacterial gastroenteritis, viral gastroenteritis, colitis, diverticulitis, dehydration, electrolyte derangements. Ruling out the most morbid conditions drove assessment. On exam, the patient is thin and frail with dry mucous membranes. He has an irregularly irregular heart rate. He has not taken his metoprolol today. He has it in hand and is asking if he can take it, which I feel is appropriate at this time. Workup included CBC, CMP, lipase, magnesium, urinalysis, and CT abdomen pelvis with IV contrast. EKG was obtained and straits atrial fibrillation with RVR but no other acute concerns. patient was given a bolus of IV fluids. Labs demonstrated ÓSCAR with a creatinine of 2 up from baseline of around 1.5. Patient also has hematuria on urinalysis without obvious concerns for infection. On reassessment, patient had improvement in his heart rate after taking his home metoprolol and administration of IV fluids. A second liter bolus of IV fluids was administered with concern for dehydration given ÓSCAR, hemoconcentration on lab evaluation, and his dry appearance on exam. At this time, CT scan is still pending. Patient presented to the oncoming provider, Dr. Obrien. Micah: I assumed primary responsibility for this patient after signout from previous physician. On my evaluation, patient feeling much better. 2 L of fluid administered prior to my evaluation. CBC unconcerning. Chemistry with mild ÓSCAR creatinine 2 up from baseline of around 1.4-1.5. Lipase negative. Urinalysis with protein and blood, likely related to CT findings. No evidence of UTI. CT abdomen pelvis without obvious bowel wall thickening or enteritis, patient does have an associated findings of bilateral renal cysts as well as adrenal cyst/mass, this was relayed to patient. Because patient at baseline without signs or symptoms of clinical decompensation, deemed appropriate for discharge. Results were relayed to patient who voiced understanding and were agreeable to outpatient management and follow up. I discussed my clinical impression with patient and answered all questions. At this time, the evidence for any other entities in the differential is insufficient to warrant any further testing or ED observation. This was explained as well. Advisory was given that persistent or worsening symptoms require further evaluation. I confirmed the understanding of this discussion. Critical Care <Joelle Valenzuela, DO - Last Filed: 09/25/23 15:21> Critical Care Time Critical Care Time: No
--- NOTE | 2023-09-25 13:50 | ECG_ITS ---
APPROVED REPORT Exam: Resting ECG HR:112 bpm ECG Measurements Heart Rate 112 AXES QRSd 105 QRS -79 QT 328 T 90 QTc 394 Conclusion ATRIAL FIBRILLATION WITH RAPID VENTRICULAR RESPONSE WITH ABERRANT CONDUCTION OR VENTRICULAR PREMATURE COMPLEXES INCOMPLETE RIGHT BUNDLE BRANCH BLOCK [90+ ms QRS DURATION, TERMINAL R IN V1/V2, 40+ ms S IN I/aVL/V4/V5/V6] LEFT ANTERIOR FASCICULAR BLOCK [QRS AXIS <= -45, QR IN I, RS IN II] VOLTAGE CRITERIA FOR LVH [MEETS CRITERIA IN ONE OF: R(aVL), S(V1), R(V5), R(V5/V6)+S(V1)] POSSIBLE ANTEROSEPTAL MYOCARDIAL INFARCTION , OF INDETERMINATE AGE [30 ms Q WAVE IN V1-V4] ABNORMAL ECG Electronically signed by : MANI MCGILL, 09/25/2023 15:29:31
[2023-09-25 13:51] LABS: Lactic Acid 1.2 mmol/L (0.7-2.1)
[2023-09-25] MEDS: ONDANSETRON 4MG/2ML VIAL 4 MG IV (14:00)
[2023-09-25] MEDS: LACTATED RINGERS 1000ML 1,000 ML 999 ML IV ×2 (14:01→15:08)
[2023-09-25 14:05] LABS: Bilirubin,Urine 1+ (Negative)
--- NOTE | 2023-09-25 14:08 | PC.NURSE ---
PT TO CT
[2023-09-25 14:10] LABS: Bacteria,Urine 1+ /lpf; RBC,Urine 20-50 #/hpf (0-3)
--- NOTE | 2023-09-25 14:23 | PC.NURSE ---
pt back to room from CT
[2023-09-25] MEDS: SODIUM CHLORIDE 0.9% 10ML SYR (RAD ONLY) 10 ML IV (14:27)
[2023-09-25] MEDS: IOPAMIDOL-370 (76%);100ML BOTTLE 60 ML IV (14:27)
--- NOTE | 2023-09-25 14:27 | HMH.ITSTN ---
PATIENT GFR 32, IV FLUIDS PRIOR AND POST SCAN. CONTRAST REDUCED TO 60 ML
--- NOTE | 2023-09-25 16:24 | PC.NURSE ---
DR ESCOBEDO AT BEDSIDE TO REEVALUATE PT
== END 2023-09-25 16:52 | disposition home or self-care (01) ==
PROVIDERS: Emergency Medicine; Emergency Provider Emergency Medicine; PCP Family Medicine
DX: R10.9 Unspecified abdominal pain (principal); R11.2 Nausea with vomiting, unspecified; R19.7 Diarrhea, unspecified; N17.9 Acute kidney failure, unspecified; I48.91 Unspecified atrial fibrillation; I10 Essential (primary) hypertension; Z79.01 Long term (current) use of anticoagulants
CPT/HCPCS: 74177; 80053; 81001; 83605; 83690; 83735; 85025; 87636; 93005; 96361; 96374; 99284; J2405; Q9967

== ENCOUNTER 2023-11-27 09:04 | Emergency (ER) | payer MEDICARE, OTHER, SELFPAY ==
[2023-11-27] VITALS (11 sets, daily range): BP systolic 122–157; BP diastolic 75–110; PULSE 69–124; RESP 15–20; TEMP 37; O2SAT 94–99; BMI 17.4
--- NOTE | 2023-11-27 09:16 | XR_ITS ---
FINAL REPORT TECHNIQUE: Chest PA & Lateral CLINICAL HISTORY: cough, SOA FINDINGS: 2 views of the chest were performed. The heart size is mildly enlarged. The mediastinum is within normal limits. The lungs are hyperinflated. There is no acute cardiopulmonary process. Chronic changes are seen in both lungs. There are no pleural effusions. There is no pneumothorax. The bony thorax appears intact. IMPRESSION: No acute cardiopulmonary process. Reviewed, Interpreted and Dictated by Emiliano Gresham MD Transcribed by Selam Vila Authenticated and [facility]
--- NOTE | 2023-11-27 09:21 | ECG_ITS ---
APPROVED REPORT Exam: Resting ECG HR:114 bpm ECG Measurements Heart Rate 114 AXES QRSd 105 QRS -80 QT 302 T 94 QTc 369 Conclusion ATRIAL FIBRILLATION WITH RAPID VENTRICULAR RESPONSE INCOMPLETE RIGHT BUNDLE BRANCH BLOCK [90+ ms QRS DURATION, TERMINAL R IN V1/V2, 40+ ms S IN I/aVL/V4/V5/V6] LEFT ANTERIOR FASCICULAR BLOCK [QRS AXIS <= -45, QR IN I, RS IN II] VOLTAGE CRITERIA FOR LVH [MEETS CRITERIA IN ONE OF: R(aVL), S(V1), R(V5), R(V5/V6)+S(V1)] POSSIBLE ANTERIOR MYOCARDIAL INFARCTION , OF INDETERMINATE AGE [30 ms Q WAVE IN V3/V4, OR R < 0.2 mV IN V4] No acute STEMI Electronically signed by : MANI MCGILL, 11/27/2023 16:11:35
[2023-11-27] MEDS: ACETAMINOPHEN 1,000MG/100ML VIAL 1000 MG IV (09:31)
[2023-11-27] MEDS: KETOROLAC 30MG/ML VIAL 15 MG IV (09:32)
[2023-11-27] MEDS: LACTATED RINGERS 1000ML 1,000 ML 999 ML IV (09:32)
--- NOTE | 2023-11-27 09:33 | HMH.EDGENADL ---
Discharge Plan Disposition Patient Disposition: Left Against Medical Advice Prescriptions Prescriptions: No Action rivaroxaban 20 mg tablet 20 mg PO DAILY metoprolol succinate 100 MG tablet extended release 24 hr 100 mg PO DAILY lisinopril 20 mg tablet 20 mg PO DAILY ferrous sulfate [FeroSul] 325 mg (65 mg iron) tablet 65 mg PO DAILY Patient Comments: TAKE 1 TABLET BY MOUTH ONCE DAILY Referrals Follow up/Referrals: Arturo Sinclair MD [Primary Care Provider] - See instructions Activity Restrictions/Add. Instructions Additional Instructions/Restrictions: You were evaluated in the emergency department today. You are leaving AGAINST MEDICAL ADVICE. We recommended admission because your heart enzymes are elevated, which could indicate heart attack. Return to the emergency department should you wish to be admitted if you change amount. Cardiology is going to see you in clinic tomorrow as well. Clinical Impressions Clinical Impression: Viral URI with cough, Non-ST elevation MO (NSTEMI) Instructions Patient Instructions: DI for Heart Attack, DI for Viral Upper Respiratory Infection -- Adult Discharge ED Provider: Joelle Valenzuela General Adult HPI General Chief complaint: Upper Respiratory Infection Stated complaint: runny nose, congestion Time Seen by Provider: 11/27/23 09:10 Mode of Arrival: Ambulatory Source of Information: Patient Limitations: No Limitations Description of Symptoms (Recalled from ER Triage Doc. by RN): pt presents to ED with c/o cough, sinus infection. ongoing for 3 days. pt reports non productive cough, general feeling of malaise. History of Present Illness HPI narrative: This patient is an 88-year-old male with a history of chronic atrial fibrillation on Xarelto and metoprolol, mitral valve prolapse, hypertension, CKD, and neoplasm of left ear presenting to the emergency department for evaluation with concern for runny nose, sinus pain, cough, and sore throat. Patient reports that he has been feeling ill for about 3 to 4 days but things got acutely worse today. He states that he woke up feeling really sick. He was unable to sleep at all last night. He has not tried any medications at home to alleviate his symptoms. He reports that he has been compliant with his home medications otherwise. No chest pain, shortness of breath, abdominal pain, vomiting, or other concerns. Related Data Home Medications Medication Instructions Recorded Confirmed metoprolol succinate 100 mg 100 mg PO DAILY High blood pressure 10/09/19 11/27/23 tablet,extended release 24 hr rivaroxaban 20 mg tablet 20 mg PO DAILY afib 10/26/19 11/27/23 ferrous sulfate 325 mg (65 mg 65 mg PO DAILY 11/27/23 11/27/23 iron) tablet (FeroSul) lisinopril 20 mg tablet 20 mg PO DAILY 11/27/23 11/27/23 Allergies Allergy/AdvReac Type Severity Reaction Status Date / Time aspirin Allergy Verified 11/11/23 15:32 [facility] [place] Disclaimer: The information contained in this section may have been updated after the patient was seen, as this information can be updated by other users. 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 No significant past medical history Atrial fibrillation Skin cancer Surgical History History of eyelid surgery Family History Other Family history of hypertension Social History Smoking Status: Never smoker alcohol intake: never substance use type: denies use and other current occupational status: retired Travel in the last 8 weeks: None household members: spouse housing: house lives independently: No education level: middle school current occupational exposures/hazards: No caffeine: Yes special kusum needs: No agree to transfusion: No do you feel safe at home: Yes victim of physical abuse: No victim of emotional abuse: No victim of sexual abuse: No would you like helpful sources: No ROS Obtained: Yes All systems reviewed & no additional complaints except as documented Physical Exam General General appearance: alert and in no apparent distress Comment: Thin, frail Head Head exam: atraumatic and normocephalic Eye Eye exam: Present normal appearance, PERRL and EOMI ENT ENT exam: Present normal exam, normal oropharynx, mucous membranes moist and normal external ear exam Neck Neck exam: Present normal inspection, full ROM and trachea midline; Absent tenderness Chest Chest inspection: Present normal inspection and symmetric chest wall rise; Absent tenderness Respiratory Respiratory exam: Present normal lung sounds bilaterally; Absent respiratory distress, wheezes, stridor or accessory muscle use Cardiovascular Cardiovascular exam: Present tachycardia and irregular rhythm Abdominal Exam Abdominal exam: Present soft; Absent distention, tenderness or guarding Extremities Exam Extremities exam: Present normal inspection, full ROM and normal capillary refill; Absent tenderness or edema Back Exam Back exam: Present normal inspection and full ROM; Absent tenderness Neurological Exam Neurological exam: Present alert, oriented X3, CN II-XII intact and normal gait; Absent motor sensory deficit Psychiatric Psychiatric exam: Present normal affect and normal mood Skin Skin exam: Present warm and dry Medical Decision Making Medical Records Medical records reviewed: Yes I reviewed the patient's medical records. [place] Inquiry Pt receiving controlled substance: No Vital Signs: 11/27/23 09:05 11/27/23 09:30 11/27/23 10:00 Temperature 98.6 F Temperature Source Oral Pulse Rate 99 H 84 Pulse Rate [Left Radial] 124 H Respiratory Rate 15 Blood Pressure 145/92 H 127/78 Blood Pressure [Right Arm] 157/110 H Blood Pressure Mean [Right Arm] 125 02 Sat by Pulse Oximetry 98 99 96 Oxygen Delivery Method Room Air 11/27/23 10:30 11/27/23 11:00 11/27/23 11:30 Temperature Temperature Source Pulse Rate 97 H 87 78 Pulse Rate [Left Radial] Respiratory Rate Blood Pressure 141/83 H 139/90 122/75 Blood Pressure [Right Arm] Blood Pressure Mean [Right Arm] 02 Sat by Pulse Oximetry 94 L 96 97 Oxygen Delivery Method 11/27/23 12:00 11/27/23 12:30 11/27/23 13:01 Temperature Temperature Source Pulse Rate 81 69 81 Pulse Rate [Left Radial] Respiratory Rate Blood Pressure 133/80 132/75 155/89 H Blood Pressure [Right Arm] Blood Pressure Mean [Right Arm] 02 Sat by Pulse Oximetry 97 97 98 Oxygen Delivery Method Room Air 11/27/23 13:30 11/27/23 14:07 Temperature 98.6 F Temperature Source Oral Pulse Rate 80 80 Pulse Rate [Left Radial] Respiratory Rate 20 Blood Pressure 137/79 137/79 Blood Pressure [Right Arm] Blood Pressure Mean [Right Arm] 02 Sat by Pulse Oximetry 96 Oxygen Delivery Method Room Air Lab Data Lab results reviewed: Yes I reviewed the patient's lab results. Lab Results 11/27/23 09:20: WBC 7.6, RBC 3.99 L, Hgb 12.2 L, Hct 38.6 L, MCV 96.8 H, MCH 30.6, MCHC 31.6 L, RDW 14.6, Plt Count 178, MPV 8.3, Neut % (Auto) 80.2 H, Lymph % (Auto) 10.2, [place] % (Auto) 7.1, Eos % (Auto) 1.5, Baso % (Auto) 1.0, Neut # (Auto) 6.1, Lymph # (Auto) 0.8, [place] # (Auto) 0.5, Eos # (Auto) 0.1, Baso # (Auto) 0.1, PT 12.8 H, INR 1.20 H, APTT 36.3 H, Sodium 141, Potassium 4.9, Chloride 103, Carbon Dioxide 30, Anion Gap 12.9, BUN 27 H, Creatinine 1.70 H, Estimated Creat Clear 25, Estimated GFR 38 L, Est GFR ( Amer) 46 L, Glucose 104 H, Calcium 9.5, Total Bilirubin 0.7, AST 31, ALT 23, Alkaline Phosphatase 67, Troponin I 0.04 H, C-Reactive Protein 13.1 H, NT-Pro-B Natriuret Pep 5120 H, Total Protein 7.9, Albumin 4.4, Globulin 3.5 H, Albumin/Globulin Ratio 1.3, SARS-CoV-2 (PCR) Not detected, Influenza A Untype (PCR) Not detected, Influenza Type B (PCR) Not detected 11/27/23 11:55: Troponin I 0.16 H 11/27/23 09:20 11/27/23 09:20 Orders (Tests/Meds): ED MEDICATIONS Discontinued Medications Generic Name Dose Route Start Last Admin Trade Name Freq PRN Reason Stop Dose Admin Acetaminophen 1,000 mg 11/27/23 09:17 11/27/23 09:31 Acetaminophen 1,000mg/100ml Vial IV 11/27/23 09:18 1,000 mg ONCE ONE Administration Fluticasone Propionate 1 spray 11/27/23 09:18 11/27/23 09:35 Fluticasone Prop 50mcg Nasal [place] 16gm NS 11/27/23 09:19 1 spray ONCE ONE Administration Lactated Ringer's 1,000 mls @ 999 mls/hr 11/27/23 09:17 11/27/23 09:32 Lactated Ringer's 1000 Ml Bag IV 11/27/23 10:17 999 mls/hr .Q1H1M ONE Administration Ketorolac Tromethamine 15 mg 11/27/23 09:17 11/27/23 09:32 Ketorolac 30mg/Ml Vial IV 11/27/23 09:18 15 mg ONCE ONE Administration Loratadine 10 mg 11/27/23 09:18 11/27/23 09:35 Loratadine 10mg Tablet PO 11/27/23 09:19 10 mg ONCE ONE Administration ORDERS Category Date Time Status Cardiology Consult [Consult to Cardiology] [CONS] Cons 11/27/23 12:51 Active Routine CXR 2 view (NOT portable) [XR chest 2V] Stat Exams 11/27/23 09:16 Completed Activated Partial Thrombo Time Stat Lab 11/27/23 09:20 Completed BNP [NT Pro Brain Natriuretic Pep.] Stat Lab 11/27/23 09:20 Completed CRP [C-Reactive Protein] Stat Lab 11/27/23 09:20 Completed Complete Blood Count Auto Diff Stat Lab 11/27/23 09:20 Completed Comprehensive Metabolic Panel Stat Lab 11/27/23 09:20 Completed Prothrombin Time INR Stat Lab 11/27/23 09:20 Completed Rapid PCR Covid and Flu A/B Stat Lab 11/27/23 09:20 Completed Troponin I Q3H Lab 11/27/23 11:55 Completed Troponin I Stat Lab 11/27/23 09:20 Completed ECG Data Tracing #1: I reviewed this ECG and interpreted as documented below: Atrial fibrillation with a ventricular rate of 114 bpm. Incomplete right bundle branch block noted. Left anterior fascicular block noted. No acute ST changes concerning for ischemia. Some motion artifact noted. No significant changes noted from prior EKG. ECG initial impression date: 11/27/23 ECG initial impression time: 09:24 Tracing #2: I reviewed this ECG and interpreted as documented below: Atrial fibrillation with a ventricular rate of 82 bpm incomplete right bundle branch block noted. Lipitor vesicular breath noted. No acute ST changes concerning for ischemia. No significant changes noted from prior EKG. ECG initial impression date: 11/27/23 ECG initial impression time: 12:51 Medical Decision Narrative: In summary, this patient is a 88-year-old male presenting to the Emergency Department for evaluation of sore throat, cough, congestion, and sinus pain. Differential diagnoses considered include but are not limited to viral syndrome, sinusitis, pneumonia, laryngitis. Ruling out the most morbid conditions drove assessment. It should be noted patient's history includes atrial fibrillation which is not at goal therapy. This complicates all aspects of care by increasing patient's risk for morbidity. On exam, the patient is tachycardic with a regular rhythm. Heart rate ranging from the low 100s to 130s. Otherwise, exam and vitals are reassuring. I feel he likely has a viral upper respiratory infection, but also concern for A-fib with RVR. Cardiopulmonary exam is normal with the exception of tachycardic/irregular heartbeat. the patient has no chest pain or shortness of breath. Workup included CBC, CMP, troponin, BNP, PT, PTT, viral swab, chest x-ray, and EKG. EKG demonstrates atrial fibrillation with RVR. No acute ST changes concerning for ischemia or significant changes from prior EKG on my independent interpretation. Patient was given a bolus of IV fluids as well as IV Toradol, oral Tylenol, Flonase, and Claritin for symptomatic improvement. I independently interpreted x-ray prior to the radiologist read and noted no acute focal consolidation. Please see their read for final interpretation. On reassessment after administration of fluids and medications as above, the patient had significant improvement in his heart rate. It gradually went down from the 100s to the 90s and then 80s. He remains in atrial fibrillation, which is chronic for him. Troponin did result mildly elevated at 0.04. BNP is also elevated, but patient appears clinically volume down with no evidence of volume overload, so we will continue with a 1 L bolus of IV fluids that was previously ordered. At 1000, patient was placed in ED observation status pending second troponin to determine whether or not the patient would be appropriate for discharge versus admission. The patient was provided serial reevaluations and cardiac monitoring while awaiting ultimate disposition. On multiple subsequent reassessments, the patient is resting comfortably and states that he is ready to go home. He states that he does not want to be here anymore. Second troponin came back elevated with significant delta. Given this, I recommended the patient be admission for NSTEMI. He refused, stating that he is fine and wants to go home. I then called cardiology to ask if they could come by to see him. Laura Marcos EVELYN with cardiology to see the patient and also stressed to him that he should be admitted for NSTEMI with elevation in troponin. Patient adamantly refuses. He expressed understanding agreement that he is likely having a heart attack and he could have significant issues, including sudden cardiac if he goes home. He states he will come back tomorrow to be seen by cardiology at that time patient left AGAINST MEDICAL ADVICE after demonstrating good capacity and decision-making ability. He left in stable condition with family at bedside. Critical Care Critical Care Time Critical Care Time: No
[2023-11-27] MEDS: LORATADINE 10MG TABLET 10 MG PO (09:35)
[2023-11-27] MEDS: FLUTICASONE PROP 50MCG NASAL SPRAY 16GM 1 SPRAY NS (09:35)
[2023-11-27 09:38] LABS: Coronavirus 19, PCR Not Detected (NotDetected); Influenza A, PCR Not Detected (NotDetected); Influenza B, PCR Not Detected (NotDetected)
[2023-11-27 09:40] LABS: Basophils # 0.1 K/mm3 (0-0.2); Eosinophils # 0.1 K/mm3 (0.0-0.4); Eosinophils % 1.5 % (0.1-12.0); Hematocrit 38.6 % (42.0-52.0); Hemoglobin 12.2 g/dL (14.1-18.0); Lymphocytes # 0.8 K/mm3 (0.7-4.5); Lymphocytes % 10.2 % (10-50); Mean Corpuscular HGB Conc 31.6 g/dL (31.8-35.4); Mean Corpuscular Hemoglobin 30.6 pg (27.0-31.2); Mean Corpuscular Volume 96.8 fl (80-94); Mean Platelet Volume 8.3 fl (7.4-10.4); Monocytes # 0.5 K/mm3 (0.1-1.0); Monocytes % 7.1 % (1.7-9.3); Neutrophils # 6.1 K/mm3 (1.8-7.8); Neutrophils % 80.2 % (37.0-80.0); Platelet Count 178 K/mm3 (142-424); Red Blood Count 3.99 M/mm3 (4.60-6.20); Red Cell Distribution Width 14.6 % (11.5-17.5); White Blood Count 7.6 K/mm3 (4.8-10.8)
--- NOTE | 2023-11-27 09:44 | PC.NURSE ---
Pt gone to RAD
--- NOTE | 2023-11-27 09:46 | PC.NURSE ---
patient gone to XRay at this time.
[2023-11-27 09:48] LABS: Alanine Aminotransferase 23 U/L (12-78); Albumin Level 4.4 g/dl (3.5-5.0); Albumin/Globulin Ratio 1.3 (1.1-1.8); Alkaline Phosphatase 67 U/L (38-126); Aspartate Amino Transferase 31 U/L (17-59); Bilirubin,Total 0.7 mg/dl (0.2-1.3); Blood Urea Nitrogen 27 mg/dl (9-20); Calcium 9.5 mg/dl (8.4-10.2); Carbon Dioxide 30 mmol/L (22.0-30.0); Creatinine Clearance Estimated 25 mL/min (50-200); Estimated Glomerular Filt Rate 38 ml/min (>60); GFR (African American) 46 ML/MIN (>60); Globulin 3.5 g/dL (1.3-3.2); Glucose 104 mg/dl (74-100); Potassium 4.9 mmoL/L (3.5-5.1); Sodium 141 mmol/L (136-145); Total Protein,Serum 7.9 g/dl (6.3-8.2)
--- NOTE | 2023-11-27 09:49 | PC.NURSE ---
patient back in room at this time.
[2023-11-27 09:52] LABS: Activated Partial Thrombo Time 36.3 seconds (22.8-30.6); Prothrombin Time 12.8 seconds (10.1-12.5)
[2023-11-27 09:53] LABS: C-Reactive Protein 13.1 mg/L (0-4)
[2023-11-27 09:54] LABS: Anion Gap 12.9 mEq/L (5-15); Chloride 103 mmol/L (98-107)
--- NOTE | 2023-11-27 09:54 | PC.NURSE ---
Dr. Valenzuela at BS to update pt on results and POC
[2023-11-27 09:59] LABS: NT Pro Brain Natriuretic Pep. 5120 pg/mL (0-450); Troponin I 0.04 ng/ml (0.00-0.034)
[2023-11-27 12:40] LABS: Troponin I 0.16 ng/ml (0.00-0.034)
--- NOTE | 2023-11-27 12:49 | ECG_ITS ---
APPROVED REPORT Exam: Resting ECG HR:82 bpm ECG Measurements Heart Rate 82 AXES QRSd 104 QRS -77 QT 390 T 87 QTc 428 Conclusion ATRIAL FIBRILLATION WITH ABERRANT CONDUCTION OR VENTRICULAR PREMATURE COMPLEXES INCOMPLETE RIGHT BUNDLE BRANCH BLOCK [90+ ms QRS DURATION, TERMINAL R IN V1/V2, 40+ ms S IN I/aVL/V4/V5/V6] LEFT ANTERIOR FASCICULAR BLOCK [QRS AXIS <= -45, QR IN I, RS IN II] MODERATE VOLTAGE CRITERIA FOR LVH, CONSIDER NORMAL VARIANT [MEETS CRITERIA IN ONE OF: R(aVL), S(V1), R(V5), R(V5/V6)+S(V1)] POSSIBLE ANTERIOR MYOCARDIAL INFARCTION , OF INDETERMINATE AGE [30 ms Q WAVE IN V3/V4, OR R < 0.2 mV IN V4] ABNORMAL ECG Electronically signed by : MANI MCGILL, 11/27/2023 16:09:55
--- NOTE | 2023-11-27 12:52 | PC.NURSE ---
calling cardiology for consult with
--- NOTE | 2023-11-27 13:14 | PC.NURSE ---
[facility] CONSULTED WILL BE HERE TO SEE PT
--- NOTE | 2023-11-27 14:21 | EXP.CARD.CON ---
History of Present Illness History of Present Illness Consult date: 11/27/23 Requesting physician: Joelle Valenzuela Chief complaint: runny nose History of present illness: White gentleman who presented to the emergency department with complaints of a runny nose. He has a past medical history of chronic atrial fibrillation on Xarelto, mitral valve prolapse, hypertension, chronic kidney disease and neoplasm of the left ear. The patient states that he has been having a sinus infection for about a week with a runny nose and congestion. He states that his symptoms have been progressively worsening and got pretty severe last night. He states that he was unable to sleep because of the significant sinus pressure and runny nose through the night last night. He denies any chest pain or pressure. He denies any shortness of breath or edema. He denies any fever, chills, nausea, vomiting, diarrhea, PND orthopnea. He states that he has had a cough which is nonproductive and a sore throat. He states that those started about 3 or 4 days ago as well. He states that this morning he feels better than he did last night but because he was unable to sleep he came to the emergency department. [facility] Disclaimer: The information contained in this section may have been updated after the patient was seen, as this information can be updated by other users. 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 No significant past medical history Atrial fibrillation Skin cancer Surgical History History of eyelid surgery Family History Other Family history of hypertension Social History Smoking Status: Never smoker alcohol intake: never substance use type: denies use and other current occupational status: retired Travel in the last 8 weeks: None household members: spouse housing: house lives independently: No education level: middle school current occupational exposures/hazards: No caffeine: Yes special kusum needs: No agree to transfusion: No do you feel safe at home: Yes victim of physical abuse: No victim of emotional abuse: No victim of sexual abuse: No would you like helpful sources: No Review of Systems Review of Systems Review of systems:: pertinent systems reviewed and negative unless documented below Constitutional Constitutional: Reports system reviewed and no additional complaints, except as documented, Denies chills, Reports fatigue and Reports lethargy Eyes Eyes: Reports system reviewed and no additional complaints, except as documented ENT Ears, Nose, Mouth, and Throat: Reports system reviewed and no additional complaints, except as documented, Reports nasal congestion, Reports nasal discharge and Reports sinus pressure Comments: Rhinorrhea *Cardiovascular Cardiovascular: Reports system reviewed and no additional complaints, except as documented, Denies chest pain and Denies dyspnea *Respiratory Respiratory: Reports system reviewed and no additional complaints, except as documented, Reports chest congestion, Reports cough and Denies dyspnea *Gastrointestinal Gastrointestinal: Reports system reviewed and no additional complaints, except as documented *Genitourinary Genitourinary: Reports system reviewed and no additional complaints, except as documented *Musculoskeletal Musculoskeletal: Reports system reviewed and no additional complaints, except as documented Integumentary/Breasts Skin/Breast: Reports system reviewed and no additional complaints, except as documented *Neurologic Neurologic: Reports system reviewed and no additional complaints, except as documented Psychiatric Psychiatric: Reports system reviewed and no additional complaints, except as documented Endocrine Endocrine: Reports system reviewed and no additional complaints, except as documented and Reports fatigue Hematologic/Lymphatic Hematologic/Lymphatic: Reports system reviewed and no additional complaints, except as documented Allergic/Immunologic Allergic/Immunologic: Reports system reviewed and no additional complaints, except as documented Exam Data for Last 24 hours Vital signs and Labs for Last 24 Hours: Temp Pulse Resp BP Pulse Ox O2 Del Method 98.6 F 80 20 137/79 96 Room Air 11/27/23 14:07 11/27/23 14:07 11/27/23 14:07 11/27/23 14:07 11/27/23 13:30 11/27/23 14:07 Laboratory Results - last 24 hr 11/27/23 09:20: WBC 7.6, RBC 3.99 L, Hgb 12.2 L, Hct 38.6 L, MCV 96.8 H, MCH 30.6, MCHC 31.6 L, RDW 14.6, Plt Count 178, MPV 8.3, Neut % (Auto) 80.2 H, Lymph % (Auto) 10.2, [place] % (Auto) 7.1, Eos % (Auto) 1.5, Baso % (Auto) 1.0, Neut # (Auto) 6.1, Lymph # (Auto) 0.8, [place] # (Auto) 0.5, Eos # (Auto) 0.1, Baso # (Auto) 0.1, PT 12.8 H, INR 1.20 H, APTT 36.3 H, Sodium 141, Potassium 4.9, Chloride 103, Carbon Dioxide 30, Anion Gap 12.9, BUN 27 H, Creatinine 1.70 H, Estimated Creat Clear 25, Estimated GFR 38 L, Est GFR ( Amer) 46 L, Glucose 104 H, Calcium 9.5, Total Bilirubin 0.7, AST 31, ALT 23, Alkaline Phosphatase 67, Troponin I 0.04 H, C-Reactive Protein 13.1 H, NT-Pro-B Natriuret Pep 5120 H, Total Protein 7.9, Albumin 4.4, Globulin 3.5 H, Albumin/Globulin Ratio 1.3, SARS-CoV-2 (PCR) Not detected, Influenza A Untype (PCR) Not detected, Influenza Type B (PCR) Not detected 11/27/23 11:55: Troponin I 0.16 H I & O for Last 24 hours: Intake & Output 11/24/23 11/25/23 11/26/23 11/27/23 23:59 23:59 23:59 23:59 Weight 125 lb Constitutional Constitutional: no acute distress and thin *Routine HEENT Exam Head: Present normocephalic and atraumatic ENT: Present mucous membranes moist *Routine Neck Exam Neck: Present supple, full ROM and normal carotid upstroke; Absent JVD, carotid bruit or lymphadenopathy *Routine Respiratory Exam Respiratory: Present CTA bilaterally, normal respiratory effort, able to speak in complete sentences and symmetric chest movement *Routine Cardiovascular Exam Cardiovascular: Present Normal S1, Normal S2, murmur and irregularly irregular; Absent gallop *Routine Abdominal Exam Abdominal: Present soft and normoactive bowel sounds; Absent tenderness, distended or organomegaly *Routine Extremities Exam Extremities: Present full ROM, pulses intact and normal capillary refill; Absent cyanosis, clubbing or edema *Routine Skin Exam Skin: Present intact and warm; Absent erythema *Routine Neurological Exam Neurological: Present alert, oriented X3 and CN II-XII intact; Absent sensory deficit or motor deficit Routine Psychiatric Exam Psychiatric: Present normal affect Meds Home Medications and Allergies Home Medications Medication Instructions Recorded Confirmed Type metoprolol succinate 100 mg 100 mg PO DAILY High blood pressure 10/09/19 11/27/23 History tablet,extended release 24 hr rivaroxaban 20 mg tablet 20 mg PO DAILY afib 10/26/19 11/27/23 History ferrous sulfate 325 mg (65 mg 65 mg PO DAILY 11/27/23 11/27/23 History iron) tablet (FeroSul) lisinopril 20 mg tablet 20 mg PO DAILY 11/27/23 11/27/23 History New Prescriptions to Start Prescriptions: Allergies Allergy/AdvReac Type Severity Reaction Status Date / Time aspirin Allergy Verified 11/11/23 15:32 Assessment and Plan *Assessment and plan (1) Non-ST elevation SD (NSTEMI): Status: Acute Category: Medical Code(s): I21.4 - Non-ST elevation (NSTEMI) myocardial infarction (2) Viral URI with cough: Status: Acute Category: Medical Code(s): J06.9 - Acute upper respiratory infection, unspecified (3) Atrial fibrillation with RVR: Status: Acute Category: Medical Code(s): I48.91 - Unspecified atrial fibrillation (4) Essential hypertension: Status: Chronic Category: Medical Code(s): I10 - Essential (primary) hypertension (5) Chronic atrial fibrillation: Status: Chronic Category: Medical Code(s): I48.20 - Chronic atrial fibrillation, unspecified (6) Benign neoplasm of left ear: Status: Acute Category: Medical Code(s): D23.22 - Other benign neoplasm of skin of left ear and external auricular canal (7) Chronic Kidney Disease: Status: Acute Qualifiers: Chronic kidney disease stage: unspecified stage Qualified Code(s): N18.9 - Chronic kidney disease, unspecified Category: Medical Code(s): N18.9 - Chronic kidney disease, unspecified Plan Plan: 1. Patient presented to the emergency department with complaints of a runny nose, head congestion and sinus pressure. The patient was found to have an elevated troponin consistent with a non-STEMI. We do recommend admission to the hospital for observation due to his non-STEMI and plan to proceed with left cardiac catheterization to evaluate for coronary artery disease. The patient declines being admitted to the hospital at this time. He also declines left cardiac catheterization at this time. 2. The patient does have an acute congestive heart failure. His BNP is elevated over 5000. This is likely why he is having the chest congestion and cough. Recommend admitting the patient for IV diuresis. The patient declines. 3. The patient has chronic atrial fibrillation. His rate was elevated when he initially presented to the emergency department. He is now rate controlled. Continue metoprolol. 4. He is on Xarelto for long-term anticoagulation. He denies bleeding. 5. Recommend aspirin 81 mg daily secondary to his non-STEMI. The patient refuses and states aspirin in combination with Xarelto made him have a GI bleed in the past. 6. His LDL goal is less than 55. Recommend Lipitor 40 mg p.o. nightly. The patient is agreeable with this. 7. His blood pressure is well-controlled. 8. Recommend an echocardiogram to evaluate his LV function and history of mitral valve prolapse. The patient declines. 9. The patient declines any further cardiac interventions at this time. He states that he is going to go home today and he is agreeable to come back tomorrow as an outpatient to be seen in cardiology clinic and then he will discuss further treatment options at that time. I have informed the patient that if he leaves it will be AGAINST MEDICAL ADVICE because we do recommend that he stay to be admitted for further observation and evaluation of his non-STEMI. He continues to decline and states that he will come back to the office tomorrow. He was advised that he could come to cardiology clinic tomorrow at 1330 since he is adamantly saying he is going to leave the hospital today even though it is AGAINST MEDICAL ADVICE. Thank you for the opportunity to help participate in the care of this patient. All recommendations and orders are per Dr. Rocha.
== END 2023-11-27 14:08 | disposition left against medical advice (07) ==
PROVIDERS: Emergency Provider Emergency Medicine; PCP Family Medicine
DX: I21.4 Non-ST elevation (NSTEMI) myocardial infarction (principal); I48.91 Unspecified atrial fibrillation; I10 Essential (primary) hypertension; N18.9 Chronic kidney disease, unspecified; J06.9 Acute upper respiratory infection, unspecified; R05.9 Cough, unspecified; Z79.01 Long term (current) use of anticoagulants
CPT/HCPCS: 71046; 80053; 83880; 84484; 85025; 85610; 85730; 86140; 87636; 93005; 93306; 96361; 96374; 96375; 99285; J0131; J7120

== ENCOUNTER 2023-12-04 08:54 | Day surgery (SDC) | payer MEDICARE, OTHER, SELFPAY ==
[2023-12-04] VITALS (15 sets, daily range): BP systolic 131–176; BP diastolic 51–107; PULSE 62–79; RESP 15–18; TEMP 36.6; O2SAT 95–98; BMI 16.3
--- NOTE | 2023-12-04 07:05 | IR_ITS ---
APPROVED REPORT Patient Location: Outpatient PROCEDURES Selective coronary angiogram Drug-eluting stent deployment to the proximal LAD INDICATION Acute non-ST elevation myocardial infarction, New onset systolic congestive heart failure Informed consent was obtained prior to the procedure. COMPLICATIONS NONE Estimated Blood Loss: LESS THAN 10 ML TECHNIQUE One percent lidocaine used to anesthetize the right anterior aspect of the wrist. The right radial artery was accessed via the Seldinger technique. A 6 Yemeni sheath was placed in the right radial artery. 2.5 mg of Verapamil, 800 mcg of nitroglycerin, 1mg Lidocaine and 5000 U Heparin were given through the arterial sheath. The papa catheter was also used to perform selective coronary angiogram. At the end the diagnostic angiogram the guide catheter was Left Main Artery Followed by Choice PT Extra-Support Wire Placed on the LAD. A 3 Mm x 38 Mm Haroon Runnels Stent Was Deployed at 16 Robin Reducing the Critical Stenosis to 0%. MIRELA II Flow Was Present at the Beginning of the Procedure with MIRELA-3 Flow at the End the Procedure. In the Procedure the Apparatus Was Removed the Sheath Was Removed and Hemostasis Was Achieved Using TR Banding Patient Was Transferred to Postop Holding in Stable Condition ANGIOGRAPHIC RESULTS The left main artery Normal The left anterior descending artery Has a critical greater than 90% stenosis accompanied by MIRELA II flow with remaining vessel being widely patent The circumflex artery Nondominant yet still large with mild luminal irregularities The right coronary artery Large dominant normal The HARP ventriculogram reveals Not performed The left ventricular end-diastolic pressure Not measured IMPRESSION Critical proximal LAD disease Successful stenting the proximal LAD critical disease reduced to 0% with 1 drug-eluting stent PLAN 1. Plavix and aspirin 2. LDL less than 55 to be achieved with high intensity statin 3. Avoidance of tobacco products 4. Standard therapy for systolic congestive heart failure 5. Standard therapy for ischemic heart disease 6. Cardiac rehabilitation 7. The patient is a LifeVest candidate this should be offered Electronically signed by : Clifford Johnson MD 12/04/2023 11:37:24
[2023-12-04 09:31] LABS: Basophils # 0.1 K/mm3 (0-0.2); Basophils % 0.9 % (0.1-2.0); Eosinophils # 0.1 K/mm3 (0.0-0.4); Eosinophils % 1.5 % (0.1-12.0); Hematocrit 36.3 % (42.0-52.0); Hemoglobin 11.5 g/dL (14.1-18.0); Lymphocytes # 1.3 K/mm3 (0.7-4.5); Lymphocytes % 17.7 % (10-50); Mean Corpuscular HGB Conc 31.6 g/dL (31.8-35.4); Mean Corpuscular Hemoglobin 30.1 pg (27.0-31.2); Mean Corpuscular Volume 95.2 fl (80-94); Mean Platelet Volume 7.9 fl (7.4-10.4); Monocytes # 0.5 K/mm3 (0.1-1.0); Monocytes % 6.6 % (1.7-9.3); Neutrophils # 5.5 K/mm3 (1.8-7.8); Neutrophils % 73.4 % (37.0-80.0); Platelet Count 252 K/mm3 (142-424); Red Blood Count 3.81 M/mm3 (4.60-6.20); Red Cell Distribution Width 14.6 % (11.5-17.5); White Blood Count 7.5 K/mm3 (4.8-10.8)
[2023-12-04 09:32] LABS: Chloride 106 mmol/L (98-107); Potassium 3.9 mmoL/L (3.5-5.1); Sodium 141 mmol/L (136-145)
[2023-12-04 09:34] LABS: Blood Urea Nitrogen 25 mg/dl (9-20); Creatinine Clearance Estimated 26 mL/min (50-200); Estimated Glomerular Filt Rate 44 ml/min (>60); GFR (African American) 54 ML/MIN (>60)
[2023-12-04 09:35] LABS: Anion Gap 9.9 mEq/L (5-15); Calcium 9.1 mg/dl (8.4-10.2); Carbon Dioxide 29 mmol/L (22.0-30.0); Glucose 105 mg/dl (74-100)
[2023-12-04] MEDS: diphenhydrAMINE 50MG/ML VIAL 50 MG IV (11:32)
[2023-12-04] MEDS: HEPARIN 1,000 UNITS/ML 10ML VIAL (CATH LAB) 10000 UNIT IV (11:33)
[2023-12-04] MEDS: HEPARIN 1,000 UNITS/500ML NS (CATH LAB) 3000 UNIT IV (11:33)
[2023-12-04] MEDS: LIDOCAINE 1% 10ML MDV 20 ML IJ (11:33)
[2023-12-04] MEDS: VERAPAMIL 2.5MG/ML 2ML VIAL 2.5 MG IV (11:33)
[2023-12-04] MEDS: 0.9 % SODIUM CHLORIDE 500 ML 25 ML IV (11:33)
[2023-12-04] MEDS: NITROGLYCERIN 800MCG/8ML SYR (CATH LAB) 800 MCG IA (11:33)
[2023-12-04] MEDS: MIDAZOLAM HCL 1MG/1ML 5ML VIAL 1 MG IV (11:34)
[2023-12-04] MEDS: FENTANYL 100MCG/2ML VIAL 50 MCG IV (11:34)
[2023-12-04] MEDS: CLOPIDOGREL 300MG TABLET 600 MG PO (11:42)
[2023-12-04] MEDS: IOPAMIDOL-370 (76%);100ML BOTTLE 80 ML IV (11:55)
[2023-12-04 12:00] LABS: CATHL Activated Clotting Time 265 SEC (74-125)
== END 2023-12-04 15:16 | disposition home or self-care (01) ==
PROVIDERS: PCP Family Medicine; Visit Provider Internal Medicine
DX: R94.31 Abnormal electrocardiogram [ECG] [EKG] (principal); R79.89 Other specified abnormal findings of blood chemistry; Z87.19 Personal history of other diseases of the digestive system; I48.20 Chronic atrial fibrillation, unspecified; I34.1 Nonrheumatic mitral (valve) prolapse; R60.9 Edema, unspecified; I25.10 Atherosclerotic heart disease of native coronary artery without angina pectoris; Z79.899 Other long term (current) drug therapy; I50.21 Acute systolic (congestive) heart failure; I12.9 Hypertensive chronic kidney disease with stage 1 through stage 4 chronic kidney disease, or unspecified chronic kidney disease; N18.9 Chronic kidney disease, unspecified; Z88.8 Allergy status to other drugs, medicaments and biological substances; I21.4 Non-ST elevation (NSTEMI) myocardial infarction
CPT/HCPCS: 80048; 85025; 85347; 92928; 93454; 99152; C1725; C1769; C1874; C9600; J1644; Q9967

== ENCOUNTER 2023-12-09 13:00 | Outpatient (CLI) | payer MEDICARE, OTHER, SELFPAY ==
--- NOTE | 2023-12-09 13:06 | CA_ITS ---
APPROVED REPORT EXAM: Comprehensive 2D, Doppler, and color-flow Echocardiogram Field Crew Chief: Yahaira Ramon RDCS Ht: 5 ft 11 in Wt: 119lbs BSA: 1.69 BP: 137/79 mmHg Indications: SOA,AF CHRONIC,MVP,CKD,CAD M-Mode Dimensions RVDd 2.76 cm (0.9-2.6) LA Diam 4.30 cm (1.9-4.0) LVDd 4.02 cm (3.5-5.7) LVDs 3.01 cm (3.5-5.7) IVSd 1.33 cm (0.6-1.1) PWd 1.36 cm (0.6-1.1) EF (Teich) 50.10% FS 25.10% EDV (Teich) 70.80 mL ESV (Teich) 35.30 mL Tricuspid Valve TR P. Velocity 357.00 cm/s RAP Estimate 10.00 mmHg RVSP 61.00 mmHg Left Ventricle The left ventricle is normal size. Left ventricular systolic function is mildly decreased. There is increased LV wall thickness. There is mild global hypokinesis is present. Diastolic function is indeterminate. LVEF is 45%. Right Ventricle The right ventricle is normal size. The right ventricular systolic function is normal. Atria Left atrium is severely dilated. Right atrium is severely dilated. There is no Doppler evidence of interatrial shunt. Aortic Valve The aortic valve is mildly thickened. There is no aortic valvular stenosis. Trace aortic regurgitation is present. Mitral Valve The mitral valve is mildly thickened. No evidence of mitral valve stenosis. Mild mitral regurgitation. Tricuspid Valve The tricuspid valve leaflets are thin and pliable. Mild tricuspid regurgitation. RVSP is 50-55 mmHg. Pulmonic Valve The pulmonary valve is normal in structure. Mild pulmonic regurgitation. Great Vessels The aortic root is normal in size. The ascending aorta is not well visualized. IVC is normal in size and collapses >50% with inspiration. Pericardium Trivial posterior pericardial effusion. No echo indications of tamponade. Other Information Study Quality: Fair Conclusion Mildly reduced LV systolic function (LVEF 45%). Normal RV function. Severe biatrial dilation. Mild TR, mild PI. RVSP is 50-55 mmHg. Electronically signed by : Julissa Rocha MD 12/11/2023 10:30:06
[2023-12-09 13:33] LABS: Basophils # 0.1 K/mm3 (0-0.2); Basophils % 0.6 % (0.1-2.0); Eosinophils # 0.1 K/mm3 (0.0-0.4); Hematocrit 35.6 % (42.0-52.0); Hemoglobin 11.3 g/dL (14.1-18.0); Lymphocytes # 1.1 K/mm3 (0.7-4.5); Lymphocytes % 11.9 % (10-50); Mean Corpuscular HGB Conc 31.8 g/dL (31.8-35.4); Mean Corpuscular Hemoglobin 30.7 pg (27.0-31.2); Mean Corpuscular Volume 96.4 fl (80-94); Mean Platelet Volume 8.5 fl (7.4-10.4); Monocytes # 0.4 K/mm3 (0.1-1.0); Monocytes % 4.4 % (1.7-9.3); Neutrophils # 7.6 K/mm3 (1.8-7.8); Platelet Count 320 K/mm3 (142-424); Red Blood Count 3.69 M/mm3 (4.60-6.20); Red Cell Distribution Width 14.6 % (11.5-17.5); White Blood Count 9.3 K/mm3 (4.8-10.8)
[2023-12-09 13:56] LABS: Anion Gap 11.8 mEq/L (5-15); Blood Urea Nitrogen 27 mg/dl (9-20); Calcium 9.4 mg/dl (8.4-10.2); Carbon Dioxide 32 mmol/L (22.0-30.0); Chloride 105 mmol/L (98-107); Estimated Glomerular Filt Rate 44 ml/min (>60); GFR (African American) 54 ML/MIN (>60); Glucose 79 mg/dl (74-100); Potassium 4.8 mmoL/L (3.5-5.1); Sodium 144 mmol/L (136-145)
== END 2023-12-09 23:59 | disposition home or self-care (01) ==
PROVIDERS: Internal Medicine; PCP Family Medicine; Visit Provider Physician Assistant
DX: I11.9 Hypertensive heart disease without heart failure (principal); I25.10 Atherosclerotic heart disease of native coronary artery without angina pectoris; R94.31 Abnormal electrocardiogram [ECG] [EKG]; R79.89 Other specified abnormal findings of blood chemistry; I48.20 Chronic atrial fibrillation, unspecified; I34.1 Nonrheumatic mitral (valve) prolapse; R60.9 Edema, unspecified; Z95.5 Presence of coronary angioplasty implant and graft; Z88.8 Allergy status to other drugs, medicaments and biological substances
CPT/HCPCS: 36415; 80048; 85025; 93306

== ENCOUNTER 2024-02-11 11:43 | Inpatient (IN) | payer MEDICARE, OTHER, SELFPAY ==
[2024-02-11] VITALS (12 sets, daily range): BP systolic 123–146; BP diastolic 71–89; PULSE 78–128; RESP 18–20; TEMP 36.4–37.1; O2SAT 94–100; BMI 16.0
--- NOTE | 2024-02-11 12:06 | CT_ITS ---
FINAL REPORT TECHNIQUE: Pre-and postcontrast images of the abdomen were performed by computed tomography. Extensive 3-D reconstruction images were performed. A CTA was performed. This study was performed with techniques to keep radiation doses as low as reasonably achievable (ALARA). Individualized dose reduction techniques using automated exposure control or adjustment of mA and/or kV according to the patient's size were employed. CLINICAL HISTORY: tarry stool, BRBPR COMPARISON: None FINDINGS: ABDOMEN AND PELVIS: The lung bases are clear. There are foci of inhomogeneous enhancement in the liver, favor transient hepatic attenuation differences (THADs). Calcified granulomas are present in the liver. There are bilateral adrenal nodules, nonspecific, but not definitely adenomas. If clinically indicated adrenal protocol CT evaluation could be performed, alternately MRI. There are multiple right renal nonobstructing stones present measuring up to 7 mm in size. There are multiple bilateral renal masses, many are likely cysts, but multiple may represent complex cysts or neoplasms. Renal protocol CT would be helpful if indicated. There are scattered diverticula in the colon. There is wall thickening of portions of the sigmoid colon and rectum, that may represent colitis. There is abnormal soft tissue in the inguinal canals bilaterally, measuring 4.8 cm on the right side and 5.6 cm on the left side. These are of uncertain etiology but may represent inflammatory soft tissue, with neoplasm not excluded. CTA: The abdominal aorta is proper caliber. The SMA, celiac axis, and JONO are patent. There is no significant stenosis or calcification. The renal arteries are patent bilaterally. The common, external, and internal iliac arteries are patent bilaterally. IMPRESSION: No significant vascular abnormality in the abdomen or pelvis. Wall thickening is present in the sigmoid colon and rectum that may represent colitis. Multiple bilateral renal masses, many likely represent cysts but multiple are not compatible with simple cysts and may represent complex cysts or neoplasm. Renal protocol CT is suggested if clinically indicated. Bilateral adrenal nodules, nonspecific but not definitely adenomas. Once again CT or MRI are suggested for further evaluation as indicated. Abnormal soft tissue in the inguinal regions bilaterally, medial aspect, which may represent inflammatory soft tissue although once again neoplasm is not excluded. Reviewed, Interpreted and Dictated by Aaron Ortega III, MD Transcribed by Jenniffer Truong Authenticated and [facility]
--- NOTE | 2024-02-11 12:06 | CT_ITS ---
FINAL REPORT CLINICAL HISTORY: tarry stool, GIB COMPARISON: None. FINDINGS: Thin section axial CT images of the chest were obtained with contrast. 3D reformatted images were also obtained. This study was performed with techniques to keep radiation doses as low as reasonably achievable (ALARA). Individualized dose reduction techniques using automated exposure control or adjustment of mA and/or kV according to the patient's size were employed. There is no evidence of pulmonary embolism. There is ectasia of the thoracic aorta without evidence of an aneurysm or dissection. There is no evidence of mediastinal or hilar mass or adenopathy. There is no evidence of pulmonary mass or nodule. No localized inflammatory process is seen within the lungs. A small pericardial effusion is noted, with cardiomegaly. A mild pectus excavatum deformity is noted as well. There is mild scarring in the lung zuluaga bilaterally. Several calcified granulomas are noted. IMPRESSION: No evidence of pulmonary embolism. No mass or localized inflammatory process. Reviewed, Interpreted and Dictated by Aaron Ortega III, MD Transcribed by Jenniffer Truong Authenticated and [facility]
--- NOTE | 2024-02-11 12:10 | HMH.EDGENADL ---
Discharge Plan Disposition Patient Disposition: Admitted Chief Complaint: GI Bleed Prescriptions Prescriptions: No Action multivitamin [Daily Multi-Vitamin] Tablet 1 tab PO DAILY metoprolol succinate 200 mg tablet extended release 24 hr 200 mg PO DAILY Qty: 30 5RF rivaroxaban 20 mg tablet 20 mg PO DAILY Qty: 90 3RF lisinopril 20 mg tablet 20 mg PO DAILY ferrous sulfate [FeroSul] 325 mg (65 mg iron) tablet 65 mg PO Q OTHER DAY Patient Comments: TAKE 1 TABLET BY MOUTH ONCE DAILY clopidogrel [Plavix] 75 mg Tablet 75 mg PO DAILY Qty: 30 6RF atorvastatin [Lipitor] 40 mg Tablet 40 mg PO HS Qty: 30 3RF Referrals Follow up/Referrals: Arturo Sinclair MD [Primary Care Provider] - See instructions Clinical Impressions Clinical Impression: Acute GI bleeding, Anticoagulated, Acute blood loss anemia Instructions Patient Instructions: DI for Gastrointestinal Bleeding Print Language Print Language: Italian Discharge ED Provider: Shanae Diaz General Adult HPI <Shanae Diaz MD - Last Filed: 02/11/24 17:02> General Chief complaint: GI Bleed Stated complaint: passing blood Time Seen by Provider: 02/11/24 11:54 Mode of Arrival: Ambulatory Source of Information: Patient Limitations: No Limitations Description of Symptoms (Recalled from ER Triage Doc. by RN): pt to ed c/o rectal bleeding. pt reports the symptoms started this am. pt denies abd pain. History of Present Illness HPI narrative: 88-year-old male presents to the ER for concerns of rectal bleeding. Patient reports he has been having dark stools but thought this was related to his newly increased dose of iron. He reports he is having bright red blood with 2 bowel movements today. He does report a history of hemorrhoids. He states he has no abdominal pain, no nausea or vomiting, he takes clopidogrel and Xarelto with a history of atrial fibrillation and CAD. No fevers, chills, chest pain, difficulty breathing, headache, he does report lightheadedness but no syncope or presyncope. Related Data Home Medications ?Medication ?Instructions ?Recorded ?Confirmed lisinopril 20 mg tablet 20 mg PO DAILY 11/27/23 12/30/23 ferrous sulfate 325 mg (65 mg 65 mg PO Q OTHER DAY 11/28/23 12/30/23 iron) tablet (FeroSul) multivitamin (Daily Multi-Vitamin 1 tab PO DAILY 11/28/23 12/30/23 tablet) Previous Rx's ?Medication ?Instructions ?Recorded metoprolol succinate 200 mg 200 mg PO DAILY High blood 11/28/23 tablet,extended release 24 hr pressure #30 tabs atorvastatin 40 mg tablet (Lipitor) 40 mg PO HS #30 tabs 12/04/23 clopidogrel 75 mg tablet (Plavix) 75 mg PO DAILY #30 tabs 12/04/23 rivaroxaban 20 mg tablet 20 mg PO DAILY afib #90 tabs 12/09/23 Allergies Allergy/AdvReac Type Severity Reaction Status Date / Time aspirin Allergy Verified 12/30/23 10:42 PFS <Shanae Diaz MD - Last Filed: 02/11/24 17:02> [facility], LAT[facility] Disclaimer: The information contained in this section may have been updated after the patient was seen, as this information can be updated by other users. 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 No significant past medical history Atrial fibrillation Skin cancer Surgical History Stented coronary artery History of eyelid surgery Family History Other Family history of hypertension Social History Smoking Status: Never smoker alcohol intake: never substance use type: denies use and other current occupational status: retired Travel in the last 8 weeks: None household members: spouse housing: house lives independently: No education level: middle school current occupational exposures/hazards: No caffeine: Yes special kusum needs: No agree to transfusion: No do you feel safe at home: Yes victim of physical abuse: No victim of emotional abuse: No victim of sexual abuse: No would you like helpful sources: No <Shanae Diaz MD - Last Filed: 02/11/24 17:02> ROS Obtained: Yes All systems reviewed & no additional complaints except as documented See HPI Physical Exam <Shanae Diaz MD - Last Filed: 02/11/24 17:02> General General appearance: alert and in no apparent distress Head Head exam: atraumatic and normocephalic Eye Eye exam: Present PERRL and EOMI ENT ENT exam: Present mucous membranes moist Neck Neck exam: Present normal inspection and full ROM Chest Chest inspection: Present symmetric chest wall rise Respiratory Respiratory exam: Present normal lung sounds bilaterally; Absent respiratory distress, wheezes or stridor Cardiovascular Cardiovascular exam: Present regular rate (Tachycardia present on arrival has resolved on exam, heart rate 80s) and irregular rhythm Abdominal Exam Abdominal exam: Present soft; Absent distention, tenderness, guarding or rebound Extremities Exam Extremities exam: Present full ROM Neurological Exam Neurological exam: Present alert, oriented X3, CN II-XII intact and normal gait; Absent motor sensory deficit Psychiatric Psychiatric exam: Present normal affect and normal mood Skin Skin exam: Present warm and dry Medical Decision Making <Shanae Diaz MD - Last Filed: 02/11/24 17:02> Medical Records Medical records reviewed: Yes I reviewed the patient's medical records. MR Comment: Most recent cardiology note from December 2023 was reviewed. Patient was planned for MANOJ with cardioversion due to A-fib, mildly reduced LV systolic function with an EF of 45% Nima Inquiry Pt receiving controlled substance: No Vital Signs: 02/11/24 11:59 02/11/24 12:00 02/11/24 12:30 Temperature 97.5 F L Temperature Source Oral Pulse Rate 78 91 H Pulse Rate [Left Radial] 128 H Respiratory Rate 20 Blood Pressure 133/71 123/72 Blood Pressure [Right Arm] 141/78 H Blood Pressure Mean 86 Blood Pressure Mean [Right Arm] 99 02 Sat by Pulse Oximetry 97 100 100 Oxygen Delivery Method Room Air 02/11/24 15:12 02/11/24 15:30 02/11/24 16:00 Temperature Temperature Source Pulse Rate 90 85 79 Pulse Rate [Left Radial] Respiratory Rate Blood Pressure 135/79 126/78 126/82 Blood Pressure [Right Arm] Blood Pressure Mean 85 94 90 Blood Pressure Mean [Right Arm] 02 Sat by Pulse Oximetry 99 97 99 Oxygen Delivery Method 02/11/24 16:30 02/11/24 17:00 02/11/24 17:30 Temperature Temperature Source Pulse Rate 97 H 94 H 107 H Pulse Rate [Left Radial] Respiratory Rate Blood Pressure 136/74 137/89 143/80 H Blood Pressure [Right Arm] Blood Pressure Mean Blood Pressure Mean [Right Arm] 02 Sat by Pulse Oximetry 95 94 L 94 L Oxygen Delivery Method Room Air Room Air Room Air 02/11/24 18:00 Temperature Temperature Source Pulse Rate 120 H Pulse Rate [Left Radial] Respiratory Rate Blood Pressure 146/80 H Blood Pressure [Right Arm] Blood Pressure Mean Blood Pressure Mean [Right Arm] 02 Sat by Pulse Oximetry 98 Oxygen Delivery Method Room Air Lab Data Lab Results 02/11/24 11:55: WBC 5.6, RBC 2.30 L, Hgb 7.4 L, Hct 24.5 L, MCV 106.1 H, MCH 32.2 H, MCHC 30.3 L, RDW 15.5, Plt Count 230, MPV 8.2, Neut % (Auto) 73.9, Lymph % (Auto) 18.1, Power % (Auto) 6.2, Eos % (Auto) 1.1, Baso % (Auto) 0.6, Neut # (Auto) 4.1, Lymph # (Auto) 1.0, Power # (Auto) 0.3, Eos # (Auto) 0.1, Baso # (Auto) 0.0, PT 13.7 H, INR 1.25 H, Sodium 141, Potassium 5.2 H, Chloride 112 H, Carbon Dioxide 28, Anion Gap 6.2, BUN 32 H, Creatinine 1.70 H, Estimated Creat Clear 23, Estimated GFR 38 L, Est GFR ( Amer) 46 L, Glucose 103 H, Calcium 8.4, Total Bilirubin 0.5, AST 33, ALT 29, Alkaline Phosphatase 50, Total Protein 6.0 L, Albumin 3.4 L, Globulin 2.6, Albumin/Globulin Ratio 1.3 02/11/24 12:30: Blood Type A Positive, Antibody Screen Negative 02/11/24 11:55 02/11/24 11:55 Orders (Tests/Meds): ED MEDICATIONS Discontinued Medications Generic Name Dose Route Start Last Admin Trade Name Freq PRN Reason Stop Dose Admin Iopamidol 80 ml 02/11/24 12:57 02/11/24 12:57 Iopamidol-370 (76%);100ml Bottle IV 02/11/24 12:58 80 ml ONCE ONE Administration Sodium Chloride 50 ml 02/11/24 12:57 08/13/24 12:57 0.9 % Sodium Chloride 50 Ml Vial IV 02/11/24 12:58 50 ml ONCE ONE Administration Sodium Chloride 10 ml 02/11/24 12:57 02/11/24 12:57 Sodium Chloride 0.9% 10ml Syr (Rad Only) IV 02/11/24 12:58 10 ml ONCE ONE Administration ORDERS Category Date Time Status Type and Screen Stat BBK 02/11/24 12:[address] angio abdomen pelvis Stat Cat Scan 02/11/24 12:[address] angio chest - dissection Stat Cat Scan 02/11/24 12:06 Completed CBC w/Auto Diff [Complete Blood Count Auto Diff] Stat Lab 02/11/24 11:55 Completed CMP [Comprehensive Metabolic Panel] Stat Lab 02/11/24 11:55 Completed PT INR [Prothrombin Time INR] Stat Lab 02/11/24 11:55 Completed Medical Decision Narrative: In summary, this 88-year-old male presents to the emergency department today with dark stool, bright red blood per rectum. On initial evaluation patient is hemodynamically stable, afebrile, patient is in atrial fibrillation which is a known problem for him, he is anticoagulated which is a comorbidity of current condition and increases risk of bleeding as well as overall morbidity, patient has a benign abdominal exam, remainder of exam is also reassuring. Differential diagnosis includes but is not limited to hernia, fissure, GI bleed, anemia, electrolyte abnormality, kidney dysfunction, coagulopathy. Based on these concerns, I ordered serum labs, CT imaging. Labs personally reviewed demonstrate significant decrease in patient's hemoglobin since November, now 7.4 down from 11.3. Patient has normal platelets, PT/INR slightly elevated but nonactionable at this time, trace hyperkalemia with potassium 5.2, kidney dysfunction similar to previous, mild hypoalbuminemia. CTA chest, abdomen, pelvis did not demonstrate obvious active GI bleed on my personal interpretation, radiology read pending. Patient handed off to Dr. Ramos at physician shift change for further management and disposition. <Linus Ramos MD - Last Filed: 02/11/24 18:33> Vital Signs: 02/11/24 11:59 02/11/24 12:00 02/11/24 12:30 Temperature 97.5 F L Temperature Source Oral Pulse Rate 78 91 H Pulse Rate [Left Radial] 128 H Respiratory Rate 20 Blood Pressure 133/71 123/72 Blood Pressure [Right Arm] 141/78 H Blood Pressure Mean 86 Blood Pressure Mean [Right Arm] 99 02 Sat by Pulse Oximetry 97 100 100 Oxygen Delivery Method Room Air 02/11/24 15:12 02/11/24 15:30 02/11/24 16:00 Temperature Temperature Source Pulse Rate 90 85 79 Pulse Rate [Left Radial] Respiratory Rate Blood Pressure 135/79 126/78 126/82 Blood Pressure [Right Arm] Blood Pressure Mean 85 94 90 Blood Pressure Mean [Right Arm] 02 Sat by Pulse Oximetry 99 97 99 Oxygen Delivery Method 02/11/24 16:30 02/11/24 17:00 02/11/24 17:30 Temperature Temperature Source Pulse Rate 97 H 94 H 107 H Pulse Rate [Left Radial] Respiratory Rate Blood Pressure 136/74 137/89 143/80 H Blood Pressure [Right Arm] Blood Pressure Mean Blood Pressure Mean [Right Arm] 02 Sat by Pulse Oximetry 95 94 L 94 L Oxygen Delivery Method Room Air Room Air Room Air 02/11/24 18:00 Temperature Temperature Source Pulse Rate 120 H Pulse Rate [Left Radial] Respiratory Rate Blood Pressure 146/80 H Blood Pressure [Right Arm] Blood Pressure Mean Blood Pressure Mean [Right Arm] 02 Sat by Pulse Oximetry 98 Oxygen Delivery Method Room Air Lab Data Lab results reviewed: Yes I reviewed the patient's lab results. Lab Results 02/11/24 11:55: WBC 5.6, RBC 2.30 L, Hgb 7.4 L, Hct 24.5 L, MCV 106.1 H, MCH 32.2 H, MCHC 30.3 L, RDW 15.5, Plt Count 230, MPV 8.2, Neut % (Auto) 73.9, Lymph % (Auto) 18.1, Power % (Auto) 6.2, Eos % (Auto) 1.1, Baso % (Auto) 0.6, Neut # (Auto) 4.1, Lymph # (Auto) 1.0, Power # (Auto) 0.3, Eos # (Auto) 0.1, Baso # (Auto) 0.0, PT 13.7 H, INR 1.25 H, Sodium 141, Potassium 5.2 H, Chloride 112 H, Carbon Dioxide 28, Anion Gap 6.2, BUN 32 H, Creatinine 1.70 H, Estimated Creat Clear 23, Estimated GFR 38 L, Est GFR ( Amer) 46 L, Glucose 103 H, Calcium 8.4, Total Bilirubin 0.5, AST 33, ALT 29, Alkaline Phosphatase 50, Total Protein 6.0 L, Albumin 3.4 L, Globulin 2.6, Albumin/Globulin Ratio 1.3 02/11/24 12:30: Blood Type A Positive, Antibody Screen Negative Orders (Tests/Meds): ED MEDICATIONS Discontinued Medications Generic Name Dose Route Start Last Admin Trade Name Sharon PRN Reason Stop Dose Admin Iopamidol 80 ml 02/11/24 12:57 02/11/24 12:57 Iopamidol-370 (76%);100ml Bottle IV 02/11/24 12:58 80 ml ONCE ONE Administration Sodium Chloride 50 ml 02/11/24 12:57 02/11/24 12:57 0.9 % Sodium Chloride 50 Ml Vial IV 02/11/24 12:58 50 ml ONCE ONE Administration Sodium Chloride 10 ml 02/11/24 12:57 02/11/24 12:57 Sodium Chloride 0.9% 10ml Syr (Rad Only) IV 02/11/24 12:58 10 ml ONCE ONE Administration ORDERS Category Date Time Status Type and Screen Stat BBK 02/11/24 12:[address] angio abdomen pelvis Stat Cat Scan 02/11/24 12:[address] angio chest - dissection Stat Cat Scan 02/11/24 12:06 Completed CBC w/Auto Diff [Complete Blood Count Auto Diff] Stat Lab 02/11/24 11:55 Completed CMP [Comprehensive Metabolic Panel] Stat Lab 02/11/24 11:55 Completed PT INR [Prothrombin Time INR] Stat Lab 02/11/24 11:55 Completed Medical Decision Narrative: In summary, this 88-year-old male presents to the emergency department today with dark stool, bright red blood per rectum. On initial evaluation patient is hemodynamically stable, afebrile, patient is in atrial fibrillation which is a known problem for him, he is anticoagulated which is a comorbidity of current condition and increases risk of bleeding as well as overall morbidity, patient has a benign abdominal exam, remainder of exam is also reassuring. Differential diagnosis includes but is not limited to hernia, fissure, GI bleed, anemia, electrolyte abnormality, kidney dysfunction, coagulopathy. Based on these concerns, I ordered serum labs, CT imaging. Labs personally reviewed demonstrate significant decrease in patient's hemoglobin since November, now 7.4 down from 11.3. Patient has normal platelets, PT/INR slightly elevated but nonactionable at this time, trace hyperkalemia with potassium 5.2, kidney dysfunction similar to previous, mild hypoalbuminemia. CTA chest, abdomen, pelvis did not demonstrate obvious active GI bleed on my personal interpretation, radiology read pending. Patient handed off to Dr. Ramos at physician shift change for further management and disposition. This is Dr. Ramos I took over from Dr. Diaz at around [address] is unremarkable from an acute bleeding standpoint but did show some incidental findings such as renal masses versus cysts and adrenal possible malignancies. Patient and family are aware of this this is incidental and will need to be followed up outpatient. Patient's H&H has dropped from 11 down to 7. Will repeat that right now. On my reassessment patient appears nontoxic blood pressure is stable he is in A-fib but his heart rate is between 90 and 110. Given the fact that he had a significant hemoglobin drop and is on Xarelto will reverse this with PCC's. Patient is aware of this. Also have given IV Protonix. I discussed the case with Dr. Hinojosa who is agreeable to keep the patient in this institution. Additionally I spoke with Dr. Pryor who is flight operations dispatch clerk for Dr. Sinclair. He has agreed to accept this patient. We are repeating an H&H to make sure he does not need transfusion. Patient will be admitted for further evaluation and management. Critical Care <Shanae Diaz MD - Last Filed: 02/11/24 17:02> Critical Care Time Critical Care Time: No <Linus Ramos MD - Last Filed: 02/11/24 18:33> Critical Care Time Critical Care Time: Yes Attestation: On 02/11/24, the high probability of a clinically significant, sudden or life threatening deterioration of the following system(s) required my full and direct attention, intervention and personal management. The time I documented below is in addition to time spent performing reported procedures but includes the following listed in this critical care notation. Total Time Total Critical Care Time: 65
[2024-02-11 12:21] LABS: Basophils % 0.6 % (0.1-2.0); Chloride 112 mmol/L (98-107); Eosinophils # 0.1 K/mm3 (0.0-0.4); Eosinophils % 1.1 % (0.1-12.0); Hematocrit 24.5 % (42.0-52.0); Hemoglobin 7.4 g/dL (14.1-18.0); Lymphocytes % 18.1 % (10-50); Mean Corpuscular HGB Conc 30.3 g/dL (31.8-35.4); Mean Corpuscular Hemoglobin 32.2 pg (27.0-31.2); Mean Corpuscular Volume 106.1 fl (80-94); Mean Platelet Volume 8.2 fl (7.4-10.4); Monocytes # 0.3 K/mm3 (0.1-1.0); Monocytes % 6.2 % (1.7-9.3); Neutrophils # 4.1 K/mm3 (1.8-7.8); Neutrophils % 73.9 % (37.0-80.0); Platelet Count 230 K/mm3 (142-424); Red Cell Distribution Width 15.5 % (11.5-17.5); White Blood Count 5.6 K/mm3 (4.8-10.8)
[2024-02-11 12:22] LABS: Albumin Level 3.4 g/dl (3.5-5.0); Potassium 5.2 mmoL/L (3.5-5.1); Sodium 141 mmol/L (136-145)
[2024-02-11 12:24] LABS: Alanine Aminotransferase 29 U/L (12-78); Anion Gap 6.2 mEq/L (5-15); Aspartate Amino Transferase 33 U/L (17-59); Blood Urea Nitrogen 32 mg/dl (9-20); Carbon Dioxide 28 mmol/L (22.0-30.0); Creatinine Clearance Estimated 23 mL/min (50-200); Estimated Glomerular Filt Rate 38 ml/min (>60); GFR (African American) 46 ML/MIN (>60)
[2024-02-11 12:25] LABS: Albumin/Globulin Ratio 1.3 (1.1-1.8); Alkaline Phosphatase 50 U/L (38-126); Bilirubin,Total 0.5 mg/dl (0.2-1.3); Calcium 8.4 mg/dl (8.4-10.2); Globulin 2.6 g/dL (1.3-3.2); Glucose 103 mg/dl (74-100)
[2024-02-11 12:26] LABS: INR 1.25 (0.9-1.1); Prothrombin Time 13.7 seconds (10.1-12.5)
[2024-02-11] MEDS: SODIUM CHLORIDE 0.9% 10ML SYR (RAD ONLY) 10 ML IV (12:57)
[2024-02-11] MEDS: IOPAMIDOL-370 (76%);100ML BOTTLE 80 ML IV (12:57)
[2024-02-11] MEDS: 0.9 % SODIUM CHLORIDE 50 ML VIAL IV (12:57)
--- NOTE | 2024-02-11 13:56 | PC.NURSE ---
patient in room, no concerns at this time.
--- NOTE | 2024-02-11 18:12 | PC.NURSE ---
DR WARD AT BEDSIDE
--- NOTE | 2024-02-11 18:20 | PC.NURSE ---
GENERAL SURGERY PAGED
--- NOTE | 2024-02-11 18:24 | PC.NURSE ---
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
--- NOTE | 2024-02-11 18:25 | PC.NURSE ---
PHARMACY NOTIFIED TO DOSE KCENTRA
--- NOTE | 2024-02-11 18:25 | PC.NURSE ---
DR PAM MARIE
--- NOTE | 2024-02-11 18:26 | PC.NURSE ---
DR WARD SPEAKING WITH DR OROZCO
[2024-02-11 18:40] LABS: Basophils % 0.6 % (0.1-2.0); Eosinophils # 0.1 K/mm3 (0.0-0.4); Eosinophils % 0.9 % (0.1-12.0); Lymphocytes # 1.2 K/mm3 (0.7-4.5); Lymphocytes % 23.3 % (10-50); Mean Corpuscular HGB Conc 31.1 g/dL (31.8-35.4); Mean Corpuscular Hemoglobin 32.4 pg (27.0-31.2); Mean Corpuscular Volume 104.1 fl (80-94); Mean Platelet Volume 8.3 fl (7.4-10.4); Monocytes # 0.3 K/mm3 (0.1-1.0); Monocytes % 6.4 % (1.7-9.3); Neutrophils # 3.5 K/mm3 (1.8-7.8); Neutrophils % 68.8 % (37.0-80.0); Platelet Count 211 K/mm3 (142-424); Red Blood Count 2.06 M/mm3 (4.60-6.20); Red Cell Distribution Width 15.7 % (11.5-17.5); White Blood Count 5.1 K/mm3 (4.8-10.8)
--- NOTE | 2024-02-11 18:47 | PC.NURSE ---
Lab called with critical results of repeat Hgb 6.7. Dr. Ramos notified of this
[2024-02-11 18:56] LABS: Hematocrit 21.4 % (42.0-52.0); Hemoglobin 6.7 g/dL (14.1-18.0)
[2024-02-11] MEDS: HUM PROTHROMBIN CPLX IV (19:13)
[2024-02-11] MEDS: [UNRECOGNIZED DRUG - OTHER] IV (19:13)
--- NOTE | 2024-02-11 19:17 | PC.NURSE ---
spoke with pharmacy for dosing of kcentra. pt was dosed using the recommended formula of 0.12ml/kg/min.
--- NOTE | 2024-02-11 19:23 | PC.NURSE ---
call placed to house via charge; d:gi bleed, lazaro, receiving blood
--- NOTE | 2024-02-11 19:48 | PC.NURSE ---
Report called to Sepideh CANCHOLA.
--- NOTE | 2024-02-11 20:10 | PC.NURSE ---
PAtient arrived to floor via stretcher from ED at 20:07.
[2024-02-11] MEDS: PANTOPRAZOLE 40MG VIAL 40 MG IV (20:47)
[2024-02-12] VITALS (30 sets, daily range): BP systolic 115–170; BP diastolic 60–97; PULSE 70–132; RESP 12–20; TEMP 36.4–37.1; O2SAT 93–99; BMI 16.0
--- NOTE | 2024-02-12 00:05 | PC.NURSE ---
Addendum entered by CAMMIE Haro 02/12/24 00:07: disregard this note... Original Note: alerted nurse about low b/p
--- NOTE | 2024-02-12 03:03 | PC.NURSE ---
Received in report from ER that patient had been ordered 4 units PRBCs and order to give 1 unit now. [facility] AGENT stated they had not started blood due to it not being ready yet. This RN called lab to get estimate on when blood would be ready and lab stated they were not notified of a need for blood. Notified lab that 4 units of PRBC were ordered at 1230 08/13 in ER. Lab states they will start getting them ready now.
--- NOTE | 2024-02-12 06:17 | P.CONS_ITS ---
History of Present Illness *Admission Date: 02/11/24 *Reason for visit:: GI blood loss *History of present illness: Patient is an 88-year-old male with history of coronary artery disease, atrial fibrillation, hypertension, hyperlipidemia. Patient has been on Xarelto for quite some time. He underwent left heart catheterization with stenting for acute non-ST elevation PA on 12/05/2023 with deployment of drug-eluting stent to the LAD. He had Plavix added to his medication regimen. He presented to the emergency department on 02/11/2024 with complaints of dark stools and a couple of episodes of hematochezia. Evaluation in the emergency department revealed a hemoglobin of 7.4. Repeat hemoglobin 6.7. Baseline hemoglobin 11.3. Patient transfused 1 unit of packed red blood cells. BUN 32 with creatinine of 1.7. CT angiogram revealed no evidence of any vascular abnormality (active bleeding). There were noted other incidental findings which warrant follow-up imaging by primary provider. Given findings of clinical bleeding his Xarelto was reversed. Patient had previous admission in early 2019 for symptomatic anemia. He underwent outpatient upper endoscopy and colonoscopy at that time. There was no obvious source on EGD or colonoscopy which would explain his anemia. He did have a small tubular adenoma at the splenic flexure. At that time plan was made for small bowel evaluation and recommendations were for 3-year follow-up colonoscopy. Upper GI with small bowel follow-through revealed only a right inguinal hernia containing cecum and small bowel but no other lesions noted. Patient is on oral iron supplementation. . [facility] Disclaimer: The information contained in this section may have been updated after the patient was seen, as this information can be updated by other users. 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 No significant past medical history Atrial fibrillation Skin cancer Surgical History Stented coronary artery History of eyelid surgery Family History Other Family history of hypertension Social History (Updated 02/11/24 @ 20:45 by Sepideh Tineo RN) Smoking Status: Never smoker alcohol intake: never substance use type: denies use and other current occupational status: retired Travel in the last 8 weeks: None household members: spouse housing: house lives independently: No education level: middle school current occupational exposures/hazards: No caffeine: Yes special kusum needs: No agree to transfusion: No do you feel safe at home: Yes victim of physical abuse: No victim of emotional abuse: No victim of sexual abuse: No would you like helpful sources: No Meds Home Medications and Allergies Home Medications ?Medication ?Instructions ?Recorded ?Confirmed ?Type ferrous sulfate 325 mg (65 mg 65 mg PO Q OTHER DAY 11/28/23 02/11/24 History iron) tablet (FeroSul) metoprolol succinate 200 mg 200 mg PO DAILY High blood 11/28/23 02/11/24 Rx tablet,extended release 24 hr pressure #30 tabs multivitamin (Daily Multi-Vitamin 1 tab PO DAILY 11/28/23 02/11/24 History tablet) atorvastatin 40 mg tablet (Lipitor) 40 mg PO HS #30 tabs 12/04/23 02/11/24 Rx clopidogrel 75 mg tablet (Plavix) 75 mg PO DAILY #30 tabs 12/04/23 02/11/24 Rx rivaroxaban 20 mg tablet 20 mg PO DAILY afib #90 tabs 12/09/23 02/11/24 Rx New Prescriptions to Start Prescriptions: Allergies Allergy/AdvReac Type Severity Reaction Status Date / Time aspirin Allergy Verified 12/30/23 10:42 Exam (Inpt) Vital signs and Labs for Last 24 Hours: Temp Pulse Resp BP Pulse Ox O2 Del Method 98.5 F 96 H 14 147/76 H 95 Room Air 02/12/24 04:55 02/12/24 04:55 02/12/24 04:55 02/12/24 04:55 02/12/24 04:55 02/12/24 04:55 Laboratory Results - last 24 hr 02/11/24 11:55: WBC 5.6, RBC 2.30 L, Hgb 7.4 L, Hct 24.5 L, MCV 106.1 H, MCH 32.2 H, MCHC 30.3 L, RDW 15.5, Plt Count 230, MPV 8.2, Neut % (Auto) 73.9, Lymph % (Auto) 18.1, [place] % (Auto) 6.2, Eos % (Auto) 1.1, Baso % (Auto) 0.6, Neut # (Auto) 4.1, Lymph # (Auto) 1.0, [place] # (Auto) 0.3, Eos # (Auto) 0.1, Baso # (Auto) 0.0, PT 13.7 H, INR 1.25 H, Sodium 141, Potassium 5.2 H, Chloride 112 H, Carbon Dioxide 28, Anion Gap 6.2, BUN 32 H, Creatinine 1.70 H, Estimated Creat Clear 23, Estimated GFR 38 L, Est GFR ( Amer) 46 L, Glucose 103 H, Calcium 8.4, Total Bilirubin 0.5, AST 33, ALT 29, Alkaline Phosphatase 50, Total Protein 6.0 L, Albumin 3.4 L, Globulin 2.6, Albumin/Globulin Ratio 1.3 02/11/24 12:30: Blood Type A Positive, Antibody Screen Negative, Crossmatch ([facility]) See Detail 02/11/24 18:27: WBC 5.1, RBC 2.06 L, Hgb 6.7 L*, Hct 21.4 L, MCV 104.1 H, MCH 32.4 H, MCHC 31.1 L, RDW 15.7, Plt Count 211, MPV 8.3, Neut % (Auto) 68.8, Lymph % (Auto) 23.3, [place] % (Auto) 6.4, Eos % (Auto) 0.9, Baso % (Auto) 0.6, Neut # (Auto) 3.5, Lymph # (Auto) 1.2, [place] # (Auto) 0.3, Eos # (Auto) 0.1, Baso # (Auto) 0.0 I & O for Labs for Last 24 Hours: Intake & Output 02/09/24 02/10/24 02/11/24 02/12/24 11:59 11:59 11:59 11:59 Intake Total 0 / 0 Output Total 0 / 0 Balance 0 / 0 Weight 115 lb 114 lb 12.8 oz Constitutional: no acute distress Cardiac: Present Reg Rate and Rhythm GI: Present soft Results Labs 02/11/24 18:27 02/11/24 11:55 Labs: Laboratory Results - last 24 hr 02/11/24 11:55: WBC 5.6, RBC 2.30 L, Hgb 7.4 L, Hct 24.5 L, MCV 106.1 H, MCH 32.2 H, MCHC 30.3 L, RDW 15.5, Plt Count 230, MPV 8.2, Neut % (Auto) 73.9, Lymph % (Auto) 18.1, [place] % (Auto) 6.2, Eos % (Auto) 1.1, Baso % (Auto) 0.6, Neut # (Auto) 4.1, Lymph # (Auto) 1.0, [place] # (Auto) 0.3, Eos # (Auto) 0.1, Baso # (Auto) 0.0, PT 13.7 H, INR 1.25 H, Sodium 141, Potassium 5.2 H, Chloride 112 H, Carbon Dioxide 28, Anion Gap 6.2, BUN 32 H, Creatinine 1.70 H, Estimated Creat Clear 23, Estimated GFR 38 L, Est GFR ( Amer) 46 L, Glucose 103 H, Calcium 8.4, Total Bilirubin 0.5, AST 33, ALT 29, Alkaline Phosphatase 50, Total Protein 6.0 L, Albumin 3.4 L, Globulin 2.6, Albumin/Globulin Ratio 1.3 02/11/24 12:30: Blood Type A Positive, Antibody Screen Negative, Crossmatch ([facility]) See Detail 02/11/24 18:27: WBC 5.1, RBC 2.06 L, Hgb 6.7 L*, Hct 21.4 L, MCV 104.1 H, MCH 32.4 H, MCHC 31.1 L, RDW 15.7, Plt Count 211, MPV 8.3, Neut % (Auto) 68.8, Lymph % (Auto) 23.3, [place] % (Auto) 6.4, Eos % (Auto) 0.9, Baso % (Auto) 0.6, Neut # (Auto) 3.5, Lymph # (Auto) 1.2, [place] # (Auto) 0.3, Eos # (Auto) 0.1, Baso # (Auto) 0.0 Assessment and Plan *Assessment and plan (1) Acute blood loss anemia: Status: Acute Category: Medical Code(s): D62 - Acute posthemorrhagic anemia Plan Plan to proceed with upper endoscopy.
--- NOTE | 2024-02-12 06:58 | PC.NURSE ---
Pt received 1 unit PRBC, tolerated well. No complaints voiced to staff during shift. No BMs during shift. Ambulating to BR with standby assist. Call light within reach.
--- NOTE | 2024-02-12 07:55 | EXP.ANES.CKL ---
[facility] Disclaimer: The information contained in this section may have been updated after the patient was seen, as this information can be updated by other users. 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 No significant past medical history Atrial fibrillation Skin cancer Surgical History Stented coronary artery History of eyelid surgery Family History Other Family history of hypertension Social History (Updated 02/11/24 @ 20:45 by Sepideh Tineo RN) Smoking Status: Never smoker alcohol intake: never substance use type: denies use and other current occupational status: retired Travel in the last 8 weeks: None household members: spouse housing: house lives independently: No education level: middle school current occupational exposures/hazards: No caffeine: Yes special kusum needs: No agree to transfusion: No do you feel safe at home: Yes victim of physical abuse: No victim of emotional abuse: No victim of sexual abuse: No would you like helpful sources: No [facility] Anesthesia Checklist Patient Identification Patient Identification: Arm Band and Verbal (Name & ) Structural Data Admitted From: Inpatient Planned Operative Procedure/s: Rm 210 Consent for Planned Operative Procedure(s) Verified: Yes Verified Documents: Surgical Consent and History and Physical NPO Status Verified Time NPO: 00:00 Chart Verification Results Verified: CBC, BMP, PT, PTT, INR, ECG and Chest Xray Additional verifications Patient : No Anesthesia Reactions: No Hx Blood Transfusions: No Blood Transfusion Reaction: No Cardiovascular Assessment Pulse Rhythm: Irregular Peripheral Edema: No Airway Assessment Mallampati Score:: Class II C-Spine Mobility Assessed: Yes (FROM) TMJ Mobility Assessed: Yes Dentition: Edentulous Neurological Assessment Level of Consciousness: Awake, Alert, Appropriate and Follows Commands Hx Seizures: No Numbness or tingling in extremities: No Anesthesia Plan Anesthesia Risk discussed: Yes Anesthesia Plan: Verified ASA Class: IV (Due to pt.'s advanced age, extensive CV history, coupled with the fact that he had a PCTA w/stent x1 less than 1 month ago.) Anesthesia Type: MAC
--- NOTE | 2024-02-12 08:01 | EXP.HP ---
History of Present Illness *Admission Date: 02/11/24 *Reason for visit:: GI bleed *History of present illness: Patient is an 88-year-old male with history of coronary artery disease, atrial fibrillation, hypertension, hyperlipidemia. Patient has been on Xarelto for quite some time. He underwent left heart catheterization with stenting for acute non-ST elevation CT on 12/05/2023 with deployment of drug-eluting stent to the LAD. He had Plavix added to his medication regimen. He presented to the emergency department on 02/11/2024 with complaints of dark stools and a couple of episodes of hematochezia. Evaluation in the emergency department revealed a hemoglobin of 7.4. Repeat hemoglobin 6.7. Baseline hemoglobin 11.3. Patient transfused 1 unit of packed red blood cells. BUN 32 with creatinine of 1.7. CT angiogram revealed no evidence of any vascular abnormality (active bleeding). There were noted other incidental findings which warrant follow-up imaging by primary provider. Given findings of clinical bleeding his Xarelto was reversed. Patient had previous admission in early 2019 for symptomatic anemia. He underwent outpatient upper endoscopy and colonoscopy at that time. There was no obvious source on EGD or colonoscopy which would explain his anemia. He did have a small tubular adenoma at the splenic flexure. At that time plan was made for small bowel evaluation and recommendations were for 3-year follow-up colonoscopy. Upper GI with small bowel follow-through revealed only a right inguinal hernia containing cecum and small bowel but no other lesions noted. Patient is on oral iron supplementation. (above as per Dr. Hinojosa) [facility] Disclaimer: The information contained in this section may have been updated after the patient was seen, as this information can be updated by other users. Medical History (Updated 02/12/24 @ 13:17 by SADIE Dela Cruz) Hyperlipidemia Essential hypertension CAD (coronary artery disease) Seborrheic keratosis Allergic to aspirin Chronic Kidney Disease 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 Atrial fibrillation Skin cancer Surgical History (Updated 02/12/24 @ 13:14 by SADIE Dela Cruz) History of colonoscopy History of esophagogastroduodenoscopy (EGD) Stented coronary artery History of eyelid surgery Family History (Updated 02/12/24 @ 13:15 by SADIE Dela Cruz) Other Coronary artery disease Family history of hypertension Social History (Updated 02/11/24 @ 20:45 by Sepideh Tineo RN) Smoking Status: Never smoker alcohol intake: never substance use type: denies use and other current occupational status: retired Travel in the last 8 weeks: None household members: spouse housing: house lives independently: No education level: middle school current occupational exposures/hazards: No caffeine: Yes special kusum needs: No agree to transfusion: No do you feel safe at home: Yes victim of physical abuse: No victim of emotional abuse: No victim of sexual abuse: No would you like helpful sources: No Review of Systems Constitutional Constitutional: Denies chills, Denies fever(s), Denies headache(s) and Denies weakness Eyes Eyes: Denies blurry vision and Denies diplopia ENT Ears, Nose, Mouth, and Throat: Denies headache(s), Denies nasal congestion, Denies sore throat and Denies vertigo *Cardiovascular Cardiovascular: Denies chest pain and Denies dyspnea *Respiratory Respiratory: Denies chest congestion, Denies cough and Denies dyspnea *Gastrointestinal Gastrointestinal: Denies loose stools, Reports melena, Denies nausea and Denies vomiting *Genitourinary Genitourinary: Denies difficulty urinating and Denies dysuria *Musculoskeletal Musculoskeletal: Denies arthralgias *Neurologic Neurologic: Denies headache(s), Denies vertigo and Denies weakness Meds Home Medications and Allergies Home Medications ?Medication ?Instructions ?Recorded ?Confirmed ?Type ferrous sulfate 325 mg (65 mg 325 mg PO TID 11/28/23 02/12/24 History iron) tablet (FeroSul) metoprolol succinate 200 mg 200 mg PO DAILY High blood 11/28/23 02/11/24 Rx tablet,extended release 24 hr pressure #30 tabs multivitamin (Daily Multi-Vitamin 1 tab PO DAILY 11/28/23 02/11/24 History tablet) atorvastatin 40 mg tablet (Lipitor) 40 mg PO HS #30 tabs 12/04/23 02/11/24 Rx clopidogrel 75 mg tablet (Plavix) 75 mg PO DAILY #30 tabs 12/04/23 02/11/24 Rx rivaroxaban 20 mg tablet 20 mg PO DAILY afib #90 tabs 12/09/23 02/11/24 Rx lisinopril 20 mg tablet 20 mg PO DAILY 02/12/24 02/12/24 History New Prescriptions to Start Prescriptions: Allergies Allergy/AdvReac Type Severity Reaction Status Date / Time aspirin Allergy Verified 12/30/23 10:42 Exam Data for Last 24 hours Vital signs and Labs for Last 24 Hours: Temp Pulse Resp BP Pulse Ox O2 Del Method 98.3 F 106 H 14 170/82 H 98 Room Air 02/12/24 06:28 02/12/24 06:28 02/12/24 06:28 02/12/24 06:28 02/12/24 06:28 02/12/24 06:57 Laboratory Results - last 24 hr 02/11/24 11:55: WBC 5.6, RBC 2.30 L, Hgb 7.4 L, Hct 24.5 L, MCV 106.1 H, MCH 32.2 H, MCHC 30.3 L, RDW 15.5, Plt Count 230, MPV 8.2, Neut % (Auto) 73.9, Lymph % (Auto) 18.1, [place] % (Auto) 6.2, Eos % (Auto) 1.1, Baso % (Auto) 0.6, Neut # (Auto) 4.1, Lymph # (Auto) 1.0, [place] # (Auto) 0.3, Eos # (Auto) 0.1, Baso # (Auto) 0.0, PT 13.7 H, INR 1.25 H, Sodium 141, Potassium 5.2 H, Chloride 112 H, Carbon Dioxide 28, Anion Gap 6.2, BUN 32 H, Creatinine 1.70 H, Estimated Creat Clear 23, Estimated GFR 38 L, Est GFR ( Amer) 46 L, Glucose 103 H, Calcium 8.4, Total Bilirubin 0.5, AST 33, ALT 29, Alkaline Phosphatase 50, Total Protein 6.0 L, Albumin 3.4 L, Globulin 2.6, Albumin/Globulin Ratio 1.3 02/11/24 12:30: Blood Type A Positive, Antibody Screen Negative, Crossmatch ([facility]) See Detail 02/11/24 18:27: WBC 5.1, RBC 2.06 L, Hgb 6.7 L*, Hct 21.4 L, MCV 104.1 H, MCH 32.4 H, MCHC 31.1 L, RDW 15.7, Plt Count 211, MPV 8.3, Neut % (Auto) 68.8, Lymph % (Auto) 23.3, [place] % (Auto) 6.4, Eos % (Auto) 0.9, Baso % (Auto) 0.6, Neut # (Auto) 3.5, Lymph # (Auto) 1.2, [place] # (Auto) 0.3, Eos # (Auto) 0.1, Baso # (Auto) 0.0 I & O for Last 24 hours: Intake & Output 02/09/24 02/10/24 02/11/24 02/12/24 11:59 11:59 11:59 11:59 Intake Total 250 / 250 Output Total 0 / 0 Balance 250 / 250 Weight 115 lb 114 lb 12.8 oz Constitutional Constitutional: no acute distress *Routine HEENT Exam Head: Present normocephalic and atraumatic Eye: Present EOMI and PERRL ENT: Present mucous membranes moist *Routine Neck Exam Neck: Present supple and full ROM *Routine Respiratory Exam Respiratory: Present CTA bilaterally *Routine Cardiovascular Exam Cardiovascular: Present RRR *Routine Abdominal Exam Abdominal: Present soft and normoactive bowel sounds; Absent tenderness *Routine Rectal Exam Rectal:: deferred *Routine Genitalia Exam Genitalia:: deferred *Routine Extremities Exam Extremities: Absent cyanosis, clubbing or edema *Routine Skin Exam Skin: Present intact; Absent erythema *Routine Neurological Exam Neurological: Present alert and oriented X3 H&P: Result Impressions Abd/Pelvis CT No significant vascular abnormality in the abdomen or pelvis. Wall thickening is present in the sigmoid colon and rectum that may represent colitis. Multiple bilateral renal masses, many likely represent cysts but multiple are not compatible with simple cysts and may represent complex cysts or neoplasm. Renal protocol CT is suggested if clinically indicated. Bilateral adrenal nodules, nonspecific but not definitely adenomas. Once again CT or MRI are suggested for further evaluation as indicated. Abnormal soft tissue in the inguinal regions bilaterally, medial aspect, which may represent inflammatory soft tissue although once again neoplasm is not excluded. Chest CTA No evidence of pulmonary embolism. No mass or localized inflammatory process. EGD Esophageal dysmotility Gastroesophageal junction at 45 cm Mild diffuse nonerosive gastritis with a few patches of moderate nonerosive gastritis Probable fundic gland polyps Recommendations:: Continue proton pump inhibitors. Transfuse to appropriate level. No evidence of any source on endoscopy for recent blood loss. 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 (6) Hyperlipidemia: Status: Acute Qualifiers: Hyperlipidemia type: mixed hyperlipidemia Qualified Code(s): E78.2 - Mixed hyperlipidemia Category: Medical Code(s): E78.5 - Hyperlipidemia, unspecified (7) Essential hypertension: Status: Chronic Category: Medical Code(s): I10 - Essential (primary) hypertension (8) Stented coronary artery: Status: Acute Category: Surgical Code(s): Z95.5 - Presence of coronary angioplasty implant and graft (9) CAD (coronary artery disease): Status: Acute Qualifiers: Associated angina: without angina Coronary Disease-Associated Artery/Lesion type: [place] artery [place] vs. transplanted heart: [place] heart Qualified Code(s): I25.10 - Atherosclerotic heart disease of [place] coronary artery without angina pectoris Category: Medical Code(s): I25.10 - Atherosclerotic heart disease of [place] coronary artery without angina pectoris (10) Chronic Kidney Disease: Status: Acute Qualifiers: Chronic kidney disease stage: unspecified stage Qualified Code(s): N18.9 - Chronic kidney disease, unspecified Category: Medical Code(s): N18.9 - Chronic kidney disease, unspecified (11) Mitral valve prolapse: Status: Chronic Category: Medical Code(s): I34.1 - Nonrheumatic mitral (valve) prolapse (12) Chronic atrial fibrillation: Status: Chronic Category: Medical Code(s): I48.20 - Chronic atrial fibrillation, unspecified (13) History of GI bleed: Status: Chronic Category: Medical Code(s): Z87.19 - Personal history of other diseases of the digestive system (14) Atrial fibrillation with RVR: Status: Acute Category: Medical Code(s): I48.91 - Unspecified atrial fibrillation (15) Gastritis: Status: Acute Category: Medical Code(s): K29.70 - Gastritis, unspecified, without bleeding Plan HGB has continued to decrease. Patient was taken down to the OR for EGD. EGD showed gastritis. Dr. Hinojosa recommended PPI's and to transfuse blood to appropriate level. He did have afib with RVR after his procedure but his rate has slowed since he got metoprolol Will discuss further care with Dr. Sinclair. Dr. Sinclair entry - Saw patient, agree with above note.
--- NOTE | 2024-02-12 08:17 | HMH.SCOPE ---
Procedure: Date: 02/12/24 Patient Date of :: 1935 Procedure Performed:: Esophagogastroduodenoscopy Indications:: Patient is an 88-year-old male with history of coronary artery disease, atrial fibrillation, hypertension, hyperlipidemia. Patient has been on Xarelto for quite some time. He underwent left heart catheterization with stenting for acute non-ST elevation ID on 12/05/2023 with deployment of drug-eluting stent to the LAD. He had Plavix added to his medication regimen. He presented to the emergency department on 02/11/2024 with complaints of dark stools and a couple of episodes of hematochezia. Evaluation in the emergency department revealed a hemoglobin of 7.4. Repeat hemoglobin 6.7. Baseline hemoglobin 11.3. Patient transfused 1 unit of packed red blood cells. BUN 32 with creatinine of 1.7. CT angiogram revealed no evidence of any vascular abnormality (active bleeding). There were noted other incidental findings which warrant follow-up imaging by primary provider. Given findings of clinical bleeding his Xarelto was reversed. Patient had previous admission in early 2019 for symptomatic anemia. He underwent outpatient upper endoscopy and colonoscopy at that time. There was no obvious source on EGD or colonoscopy which would explain his anemia. He did have a small tubular adenoma at the splenic flexure. At that time plan was made for small bowel evaluation and recommendations were for 3-year follow-up colonoscopy. Upper GI with small bowel follow-through revealed only a right inguinal hernia containing cecum and small bowel but no other lesions noted. Patient is on oral iron supplementation. . Performing Provider:: Aaron Hinojosa MD Referring Provider:: Arturo Sinclair MD Sedation:: MAC sedation Procedure:: Patient history was obtained and appropriate physical examination was performed. Patient's medications and allergies were reviewed. Informed consent was obtained after explaining the benefits, alternatives, and risks of the procedure including, but not limited to, bleeding, perforation, missed lesions, and adverse reaction to anesthesia medications. Patient was transported to endoscopy procedure room. Patient was connected to monitoring devices. Throughout the procedure the patient's blood pressure, pulse, and oxygen saturations were monitored continuously. Patient identification and planned procedure were verified by the staff. Patient was positioned in lateral decubitus position. Olympus endoscope was inserted via the oropharynx. Esophagus was cannulated. There is some tortuosity to the esophagus consistent with mild esophageal dysmotility. Gastroesophageal junction was encountered at approximately 45 cm from the incisors. Stomach was cannulated and insufflated. Retroflexion revealed no evidence of any appreciable hiatal hernia. There is some diffuse mild gastritis throughout the stomach with a few small polyps consistent with fundic gland polyps. There were a few patches of moderate nonerosive gastritis. There is no evidence of any erosion or ulceration. No evidence of any stigmata of recent bleeding. Pylorus was traversed. Duodenal bulb and duodenal sweep appeared normal. Endoscope was withdrawn. . Findings:: Esophageal dysmotility Gastroesophageal junction at 45 cm Mild diffuse nonerosive gastritis with a few patches of moderate nonerosive gastritis Probable fundic gland polyps Recommendations:: Continue proton pump inhibitors. Transfuse to appropriate level. No evidence of any source on endoscopy for recent blood loss. Complications:: None immediately apparent Estimated blood obtained (mL): 0 Colonoscopy Component Colonoscopy Component Was a colonoscopy performed during today's procedure?: No
--- NOTE | 2024-02-12 08:32 | P.PNANES_ITS ---
[facility] Anesthesia Record Part I Anesthesia Record I Intake, IV Amount: 700 Hydration: Adequate Estimated blood loss (mL): 0 Urine output (mL): 0 Blood Products used (#): none Blood Pressure: 137/66 SaO2: 98 Pulse Rate: 118 Airway Patency: Patent Respiratory Rate: 18 Temperature: 98.0 F Patient is:: Awake and Stable Stable to PACU at:: 08:34
--- NOTE | 2024-02-12 08:42 | HMH.PHAINT1 ---
Pharmacy Intervention Comments: MEDICATION RECONCILIATION COMPLETED ON PATIENT USING EXTERNAL FILL HISTORY FROM PHARMACY AND LIST FROM CARDIOLOGY OFFICE. -MED CASH, NATALEED
--- NOTE | 2024-02-12 08:56 | ECG_ITS ---
APPROVED REPORT Exam: Resting ECG HR:119 bpm ECG Measurements Heart Rate 119 AXES QRSd 112 QRS -63 QT 327 T 100 QTc 398 Conclusion ATRIAL FIBRILLATION WITH RAPID VENTRICULAR RESPONSE WITH ABERRANT CONDUCTION OR VENTRICULAR PREMATURE COMPLEXES INCOMPLETE RIGHT BUNDLE BRANCH BLOCK [90+ ms QRS DURATION, TERMINAL R IN V1/V2, 40+ ms S IN I/aVL/V4/V5/V6] LEFT ANTERIOR FASCICULAR BLOCK [QRS AXIS <= -45, QR IN I, RS IN II] MODERATE VOLTAGE CRITERIA FOR LVH, CONSIDER NORMAL VARIANT [MEETS CRITERIA IN ONE OF: R(aVL), S(V1), R(V5), R(V5/V6)+S(V1)] POSSIBLE SEPTAL MYOCARDIAL INFARCTION , OF INDETERMINATE AGE [30 ms Q WAVE IN V1/V2] ABNORMAL ECG UNCONFIRMED REPORT Electronically signed by : Sotero Ordoñez MD 02/14/2024 16:04:15
--- NOTE | 2024-02-12 09:11 | PC.NURSE ---
Pt came to floor with elevated HR. Surgery team notified this nurse that pt has had HR as high as 130s. Pt noted to have history of AFIB. EKG ordered per protocol. notified of HR. New orders received to give Metoprolol Succinate 200 mg PO and NS @ 100 ml/hr. This nurse notified by RT that EKG shows AFIB with RVR. notified of EKG. MD Sinclair ordered a bolus of NS 500 ml.
[2024-02-12 09:19] LABS: Hematocrit 26.7 % (42.0-52.0)
[2024-02-12 09:33] LABS: Hemoglobin 7.9 g/dL (14.1-18.0)
[2024-02-12] MEDS: 0.9 % SODIUM CHLORIDE 500 ML 999 ML IV (09:51)
[2024-02-12] MEDS: METOPROLOL SUCCINATE XL 100MG TABLET 200 MG PO (09:51)
[2024-02-12] MEDS: 0.9 % SODIUM CHLORIDE 1000ML 1,000 ML 100 ML IV ×2 (09:51→21:06)
--- NOTE | 2024-02-12 16:54 | PC.NURSE ---
patient is resting peacefully in bed. 1 unit of blood given overnight, with post h &h being 7.9. pt had an EGD this am with no active bleeds noted per report received from PACU. Full liquid diet has been ordered and pt is tolerating well. NS running at 50. pt received metoprolol and NS bolus per Dr. Sinclair this am due to Afib with RVR and pulses in the 110-120s noted on monitor. EKG obtained and signed by Dr. Sinclair, noting that the afib with RVR is a known issue with the patient. pt was hypertensive during morning vitals with BP of 157/93 at 0845. pt has ambulated to the commode this shift with standby assistance. one bm with blood was reported by the patient, but it was flushed before RN observed. post op vital signs have been obtained since 0845 and will be completed at 2130. VSS with HTN and tachycardia resolved. pt has expressed readiness to go home. Dr. Sinclair advised monitoring labs in the morning and reevaluating. pt has had no complaints of pain this shift. no current needs. call light in reach and bed in low and locked position.
[2024-02-12 19:49] LABS: Hematocrit 23.4 % (42.0-52.0); Hemoglobin 8.1 g/dL (14.1-18.0)
[2024-02-12] MEDS: FERROUS SULFATE 325MG TABLET 325 MG PO (21:07)
[2024-02-12] MEDS: ATORVASTATIN 40MG TABLET 40 MG PO (21:07)
[2024-02-13] VITALS: BP 120/80; PULSE 73; RESP 16; TEMP 36.8; O2SAT 96
[2024-02-13 04:00] VITALS: BP 125/66; PULSE 68; RESP 20; TEMP 36.8; O2SAT 97; BMI 16.5
--- NOTE | 2024-02-13 04:34 | PC.NURSE ---
Pt is alert and oriented x4 and currently tolerating RA well. Pt has tolerated fluids well this shift and has rested intermittently. Pt denies any BMs this nurse did educate pt on importance of staff monitoring BMs for blood. Pt denies pain and needs when asked. Pt has had no acute changes to note this shift.
[2024-02-13] MEDS: 0.9 % SODIUM CHLORIDE 1000ML 1,000 ML 100 ML IV (06:30)
--- NOTE | 2024-02-13 07:06 | EXP.SURG.PN ---
Subjective Narrative: Currently resting Exam Data for Last 24 hours Vital signs and Labs for Last 24 Hours: Temp Pulse Resp BP Pulse Ox O2 Del Method O2 Flow Rate 98.3 F 68 20 125/66 97 Room Air 5 02/13/24 04:00 02/13/24 04:00 02/13/24 04:00 02/13/24 04:00 02/13/24 04:00 02/13/24 06:40 02/12/24 08:03 Laboratory Results - last 24 hr 02/12/24 09:00: Hgb 7.9 L D, Hct 26.7 L 02/12/24 18:00: Hgb 8.1 L, Hct 23.4 L I & O for Last 24 hours: Intake & Output 02/10/24 02/11/24 02/12/24 02/13/24 11:59 11:59 11:59 11:59 Intake Total 950 / 950 1160 / 1160 Output Total 0 / 0 0 / 0 Balance 950 / 950 1160 / 1160 Weight 115 lb 114 lb 12.8 oz 118 lb 3.2 oz Constitutional Comments: Exam deferred secondary to patient currently resting Progress Note: A&P Assessment and plan (1) Acute GI bleeding: Status: Acute (2) Acute blood loss anemia: Status: Acute (3) Anticoagulated: Status: Acute (4) History of GI bleed: Status: Chronic Assessment and Plan Assessment and Plan for All Diagnoses:: No definitive source noted per esophagogastroduodenoscopy yesterday. Hemoglobin yesterday evening stable after initial transfusion. Continue management as per primary service Transfuse if/when needed Follow-up with Dr. Hinojosa in 1 week (status post EGD and for ongoing discussion with regard to other potential sources)
[2024-02-13 07:34] VITALS: BP 141/73; PULSE 88; RESP 18; TEMP 37.2; O2SAT 96
--- NOTE | 2024-02-13 08:07 | EXP.ACUTE.PN ---
Subjective *Date: 02/13/24 *Time: 08:31 Interval history: Patient has not had any further bowel movements since yesterday. He slept off and on throughout the night. He is tolerating his diet but would like some real food. He denies any pain. Medical Exam Vital signs and Labs for Last 24 Hours: Vital Signs Temp Pulse Pulse Resp BP BP Pulse Ox 02/13/24 07:54 02/13/24 07:53 02/13/24 07:34 98.9 F 88 18 141/73 H 96 02/13/24 06:40 02/13/24 04:51 02/13/24 04:00 98.3 F 68 20 125/66 97 02/13/24 03:00 02/13/24 01:00 02/13/24 00:00 98.2 F 73 16 120/80 96 02/12/24 23:00 02/12/24 21:00 02/12/24 20:00 98.8 F 83 18 141/74 H 95 02/12/24 20:00 02/12/24 18:39 02/12/24 17:30 97.6 F 79 18 144/76 H 97 02/12/24 16:44 02/12/24 15:59 98.2 F 82 19 150/81 H 93 L 02/12/24 15:00 02/12/24 14:30 98.1 F 80 18 122/82 98 02/12/24 13:00 02/12/24 12:30 98.0 F 70 18 122/72 98 02/12/24 11:30 98.1 F 84 18 136/84 99 02/12/24 11:00 98.3 F 83 18 142/97 H 97 02/12/24 11:00 02/12/24 10:30 98.1 F 91 H 18 139/91 H 97 02/12/24 10:00 98.3 F 103 H 18 161/92 H 97 02/12/24 09:30 98.1 F 112 H 18 145/92 H 97 02/12/24 09:15 97.7 F 116 H 18 151/86 H 96 02/12/24 09:04 98.3 F 108 H 18 157/93 H 95 02/12/24 09:00 97.8 F 117 H 18 136/86 93 L 02/12/24 09:00 02/12/24 08:49 132 H 16 150/74 H 97 02/12/24 08:45 98.3 F 108 H 18 157/93 H 95 02/12/24 08:39 129 H 16 133/74 93 L 02/12/24 08:39 129 H 16 133/74 93 L 02/12/24 08:33 98.0 F 118 H 18 137/66 02/12/24 08:29 98.0 F 128 H 14 137/66 98 02/12/24 08:29 98.0 F 128 H 14 137/66 98 O2 Del Method 02/13/24 07:54 Room Air 02/13/24 07:53 Room Air 02/13/24 07:34 Room Air 02/13/24 06:40 Room Air 02/13/24 04:51 Room Air 02/13/24 04:00 Room Air 02/13/24 03:00 Room Air 02/13/24 01:00 Room Air 02/13/24 00:00 Room Air 02/12/24 23:00 Room Air 02/12/24 21:00 Room Air 02/12/24 20:00 Room Air 02/12/24 20:00 Room Air 02/12/24 18:39 Room Air 02/12/24 17:30 Room Air 02/12/24 16:44 Room Air 02/12/24 15:59 Room Air 02/12/24 15:00 Room Air 02/12/24 14:30 Room Air 02/12/24 13:00 Room Air 02/12/24 12:30 Room Air 02/12/24 11:30 Room Air 02/12/24 11:00 Room Air 02/12/24 11:00 Room Air 02/12/24 10:30 Room Air 02/12/24 10:00 Room Air 02/12/24 09:30 Room Air 02/12/24 09:15 Room Air 02/12/24 09:04 Room Air 02/12/24 09:00 Room Air 02/12/24 09:00 Room Air 02/12/24 08:49 Room Air 02/12/24 08:45 Room Air 02/12/24 08:39 Room Air 02/12/24 08:39 Room Air 02/12/24 08:33 02/12/24 08:29 Room Air 02/12/24 08:29 Room Air Intake and Output 02/12/24 02/13/24 02/13/24 19:59 03:59 11:59 Intake Total 300 / 1580 860 / 1580 420 / 1580 Output Total 0 / 0 0 / 0 0 / 0 Balance 300 / 1580 860 / 1580 420 / 1580 Intake: Intake, Oral Amount 300 / 1080 360 / 1080 420 / 1080 Intake, Oral Supplement Amount 0 / 0 Intake, Total IV Amount 500 / 500 0.9 % Sodium Chloride 1000ML 1, 500 / 500 000 ml @ 100 mls/hr IV .Q10H [facility] Rx#:[id number] Output: Output, Urine Amount 0 / 0 0 / 0 0 / 0 Other: Number of Voids 1 0 Number of Unmeasured Voids 1 1 1 Number of Bowel Movements 1 Weight 118 lb 3.2 oz Patient Weight 02/13/24 11:59 Weight 118 lb 3.2 oz Laboratory Results - last 24 hr 02/12/24 09:00: Hgb 7.9 L D, Hct 26.7 L 02/12/24 18:00: Hgb 8.1 L, Hct 23.4 L I & O for Labs for Last 24 Hours: Intake & Output 02/10/24 02/11/24 02/12/24 02/13/24 11:59 11:59 11:59 11:59 Intake Total 950 / 950 1580 / 1580 Output Total 0 / 0 0 / 0 Balance 950 / 950 1580 / 1580 Weight 115 lb 114 lb 12.8 oz 118 lb 3.2 oz Constitutional: Present no acute distress Respiratory: Present CTA bilaterally Comment:: Irregularly irregular GI: Present soft; Absent distention, tenderness, guarding or rebound Extremities: Absent edema Skin: Present intact Neuro: Present alert, awake and oriented x 3 Assessment and Plan *Assessment and plan (1) Acute GI bleeding: Status: Acute Category: Medical Code(s): K92.2 - Gastrointestinal hemorrhage, unspecified (2) Acute blood loss anemia: Status: Acute Category: Medical Code(s): D62 - Acute posthemorrhagic anemia (3) Renal mass: Status: Acute Category: Medical Code(s): N28.89 - Other specified disorders of kidney and ureter (4) Adrenal mass: Status: Acute Category: Medical Code(s): E27.8 - Other specified disorders of adrenal gland (5) Anticoagulated: Status: Acute Category: Medical Code(s): Z79.01 - terminal system operator (current) use of anticoagulants (6) Hyperlipidemia: Status: Acute Qualifiers: Hyperlipidemia type: mixed hyperlipidemia Qualified Code(s): E78.2 - Mixed hyperlipidemia Category: Medical Code(s): E78.5 - Hyperlipidemia, unspecified (7) Essential hypertension: Status: Chronic Category: Medical Code(s): I10 - Essential (primary) hypertension (8) Stented coronary artery: Status: Acute Category: Surgical Code(s): Z95.5 - Presence of coronary angioplasty implant and graft (9) CAD (coronary artery disease): Status: Acute Qualifiers: Associated angina: without angina Coronary Disease-Associated Artery/Lesion type: [place] artery [place] vs. transplanted heart: [place] heart Qualified Code(s): I25.10 - Atherosclerotic heart disease of [place] coronary artery without angina pectoris Category: Medical Code(s): I25.10 - Atherosclerotic heart disease of [place] coronary artery without angina pectoris (10) Chronic Kidney Disease: Status: Acute Qualifiers: Chronic kidney disease stage: unspecified stage Qualified Code(s): N18.9 - Chronic kidney disease, unspecified Category: Medical Code(s): N18.9 - Chronic kidney disease, unspecified (11) Mitral valve prolapse: Status: Chronic Category: Medical Code(s): I34.1 - Nonrheumatic mitral (valve) prolapse (12) Chronic atrial fibrillation: Status: Chronic Category: Medical Code(s): I48.20 - Chronic atrial fibrillation, unspecified (13) History of GI bleed: Status: Chronic Category: Medical Code(s): Z87.19 - Personal history of other diseases of the digestive system (14) Atrial fibrillation with RVR: Status: Acute Category: Medical Code(s): I48.91 - Unspecified atrial fibrillation (15) Gastritis: Status: Acute Category: Medical Code(s): K29.70 - Gastritis, unspecified, without bleeding Plan Patient's H&H is up to 8.1 and 23.4. Patient was seen by Dr. Woodruff this am who recommended transfusion as necessary and to f/u with Dr. Hinojosa in 1 week. Will discuss advancing patient's diet with Dr. Sinclair. Dr. Sinclair entry - Saw patient, agree with above note. Will advance diet, had discussion with cardiology and patient about changes to anticoagulants. Will stop Plavix, patient considering what he would like to take due to a. fib. Plan to discuss further later today.
[2024-02-13] MEDS: METOPROLOL SUCCINATE XL 100MG TABLET 200 MG PO (08:12)
[2024-02-13] MEDS: FERROUS SULFATE 325MG TABLET 325 MG PO (08:34)
[2024-02-13 12:00] VITALS: BP 139/74; PULSE 75; RESP 18; TEMP 37; O2SAT 93
--- NOTE | 2024-02-17 13:51 | CARE MANAGER ---
Contacted patient related to hospital discharge. He states he is doing better though he is concerned about not taking a blood thinner. We discussed how it was causing GI bleed, but understanding the concern for stroke, etc. Patient has appointments written down. He denies any questions or concerns. JESIKA Campos
--- NOTE | 2024-02-25 09:41 | P.DS_ITS ---
General Admission date:: 02/11/24 Discharge date: 02/13/24 HPI HPI HPI: Patient is an 88-year-old male with history of coronary artery disease, atrial fibrillation, hypertension, hyperlipidemia. Patient has been on Xarelto for quite some time. He underwent left heart catheterization with stenting for acute non-ST elevation [place] on 12/05/2023 with deployment of drug-eluting stent to the LAD. He had Plavix added to his medication regimen. He presented to the emergency department on 02/11/2024 with complaints of dark stools and a couple of episodes of hematochezia. Evaluation in the emergency department revealed a hemoglobin of 7.4. Repeat hemoglobin 6.7. Baseline hemoglobin 11.3. Patient transfused 1 unit of packed red blood cells. BUN 32 with creatinine of 1.7. CT angiogram revealed no evidence of any vascular abnormality (active bleeding). There were noted other incidental findings which warrant follow-up imaging by primary provider. Given findings of clinical bleeding his Xarelto was reversed. Patient had previous admission in early 2019 for symptomatic anemia. He underwent outpatient upper endoscopy and colonoscopy at that time. There was no obvious source on EGD or colonoscopy which would explain his anemia. He did have a small tubular adenoma at the splenic flexure. At that time plan was made for small bowel evaluation and recommendations were for 3-year follow-up colonoscopy. Upper GI with small bowel follow-through revealed only a right inguinal hernia containing cecum and small bowel but no other lesions noted. Patient is on oral iron supplementation. (above as per Dr. Hinojosa) Hospital Course Hospital Course Hospital Course: On admission in the emergency room hemoglobin noted to be decreased from 11.3 down to 7.4. His Xarelto was reversed. He was given IV Protonix. He was seen by Dr. Hinojosa, surgeon; he was transfused with 1 unit of packed red blood cells . Noted that he had had outpatient upper endoscopy and colonoscopy in 2019 with no obvious source on EGD or colonoscopy to explain anemia. He did have a small tubular adenoma. Upper GI and small bowel bowel follow-through revealed only a right inguinal hernia containing cecum and small bowel but no other lesions noted. He was on iron supplementation at this time. Dr. Ashish amador did perform EGD on 02/12/2024. Results revealed esophageal dysmotility, mild diffuse nonerosive gastritis with a few patches of moderate nonerosive gastritis, probable fundic gland polyps with recommendation to c ontinue PPIs. No evidence of any source on endoscopy for recent blood loss. He was followed by surgery during this admission. On 02/11 hemoglobin was 8.1 with hematocrit of 23.4. On 02/12 patient was doing well and tolerating soft food. He had no further bowel movements. He denied any pain when his diet was advanced and if tolerated plan was for him to go home. Plavix was discontinued at this point. He was to stay off all blood thinners for a week and to follow-up in the office in 1 week. He was discharged home on this date. Exam Data for Last 24 hours Vital signs and Labs for Last 24 Hours: Temp Pulse Resp BP Pulse Ox O2 Del Method O2 Flow Rate 98.6 F 75 18 139/74 93 L Room Air 5 02/13/24 12:02/13/24 12:02/13/24 12:02/13/24 12:02/13/24 12:02/13/24 12:02/12/24 08:03 Narrative: Constitutional: Present no acute distress Respiratory: Present CTA bilaterally Comment:: Irregularly irregular GI: Present soft; Absent distention, tenderness, guarding or rebound Extremities: Absent edema Skin: Present intact Neuro: Present alert, awake and oriented x 3 Results Data Completed and Pending Completed studies during hospitalization [Text1]: 02/11/2024 Abd/pelvis CTA IMPRESSION: No significant vascular abnormality in the abdomen or pelvis. Wall thickening is present in the sigmoid colon and rectum that may represent colitis. Multiple bilateral renal masses, many likely represent cysts but multiple are not compatible with simple cysts and may represent complex cysts or neoplasm. Renal protocol CT is suggested if clinically indicated. Bilateral adrenal nodules, nonspecific but not definitely adenomas. Once again CT or MRI are suggested for further evaluation as indicated. Abnormal soft tissue in the inguinal regions bilaterally, medial aspect, which may represent inflammatory soft tissue although once again neoplasm is not excluded. 02/11/2024 chest CTA MPRESSION: No evidence of pulmonary embolism. No mass or localized inflammatory process. DS: Diagnosis Discharge Diagnosis (1) Acute GI bleeding: Status: Acute Code(s): K92.2 - Gastrointestinal hemorrhage, unspecified (2) Acute blood loss anemia: Status: Acute Code(s): D62 - Acute posthemorrhagic anemia (3) Renal mass: Status: Acute Code(s): N28.89 - Other specified disorders of kidney and ureter (4) Adrenal mass: Status: Acute Code(s): E27.8 - Other specified disorders of adrenal gland (5) Anticoagulated: Status: Acute Code(s): Z79.01 - group home (current) use of anticoagulants (6) Hyperlipidemia: Status: Acute Code(s): E78.5 - Hyperlipidemia, unspecified Qualifiers: Hyperlipidemia type: mixed hyperlipidemia Qualified Code(s): E78.2 - Mixed hyperlipidemia (7) Essential hypertension: Status: Chronic Code(s): I10 - Essential (primary) hypertension (8) Stented coronary artery: Status: Acute Code(s): Z95.5 - Presence of coronary angioplasty implant and graft (9) CAD (coronary artery disease): Status: Acute Code(s): I25.10 - Atherosclerotic heart disease of [place] coronary artery without angina pectoris Qualifiers: Associated angina: without angina Coronary Disease-Associated Artery/Lesion type: [place] artery [place] vs. transplanted heart: [place] heart Qualified Code(s): I25.10 - Atherosclerotic heart disease of [place] coronary artery without angina pectoris (10) Chronic Kidney Disease: Status: Acute Code(s): N18.9 - Chronic kidney disease, unspecified Qualifiers: Chronic kidney disease stage: unspecified stage Qualified Code(s): N18.9 - Chronic kidney disease, unspecified (11) Mitral valve prolapse: Status: Chronic Code(s): I34.1 - Nonrheumatic mitral (valve) prolapse (12) Chronic atrial fibrillation: Status: Chronic Code(s): I48.20 - Chronic atrial fibrillation, unspecified (13) History of GI bleed: Status: Chronic Code(s): Z87.19 - Personal history of other diseases of the digestive system (14) Atrial fibrillation with RVR: Status: Acute Code(s): I48.91 - Unspecified atrial fibrillation (15) Gastritis: Status: Acute Code(s): K29.70 - Gastritis, unspecified, without bleeding Meds Home Medications and Allergies Home Medications ?Medication ?Instructions ?Recorded ?Confirmed ?Type ferrous sulfate 325 mg (65 mg 325 mg PO TID 11/28/23 02/20/24 History iron) tablet (FeroSul) metoprolol succinate 200 mg 200 mg PO DAILY High blood 11/28/23 02/20/24 Rx tablet,extended release 24 hr pressure #30 tabs multivitamin (Daily Multi-Vitamin 1 tab PO DAILY 11/28/23 02/20/24 History tablet) atorvastatin 40 mg tablet (Lipitor) 40 mg PO HS #30 tabs 12/04/23 02/20/24 Rx lisinopril 20 mg tablet 20 mg PO DAILY 02/12/24 02/20/24 History rivaroxaban 15 mg tablet (Xarelto) 15 mg PO 02/20/24 02/20/24 History New Prescriptions to Start Prescriptions: Allergies Allergy/AdvReac Type Severity Reaction Status Date / Time aspirin Allergy Verified 02/20/24 13:50 Discharge Plan Disposition Patient Disposition: Home, Self-Care Condition: Fair Discharge Order Discharge Orders: Discharge Order (Routine); Ordered 02/13/24 Ordered By: Arturo Sinclair Follow up Plan Follow up with: Arturo Sinclair MD [Primary Care Provider] - 02/20/24 10:15 am Aaron Hinojosa MD [Staff Physician] - 1 week Prescriptions/Medication Reconciliation: Continued multivitamin [Daily Multi-Vitamin] Tablet 1 tab PO DAILY metoprolol succinate 200 mg tablet extended release 24 hr 200 mg PO DAILY Qty: 30 5RF ferrous sulfate [FeroSul] 325 mg (65 mg iron) tablet 325 mg PO TID atorvastatin [Lipitor] 40 mg Tablet 40 mg PO HS Qty: 30 3RF lisinopril 20 mg tablet 20 mg PO DAILY Patient Comments: TAKE 1 TABLET BY MOUTH ONCE DAILY FOR 90 DAYS Discontinued rivaroxaban 20 mg tablet 20 mg PO DAILY Qty: 90 3RF clopidogrel [Plavix] 75 mg Tablet 75 mg PO DAILY Qty: 30 6RF No Action Xarelto 15 mg tablet 15 mg PO Problem Reconciliation Problems Reviewed?: Yes Patient Discharge Instructions ACTIVITY: Continue current activity DIET: advance to your usual diet Patient Instructions: DI for Gastrointestinal Bleeding Print Language: Italian Providers Primary Care Provider: Arturo Sinclair Admit Provider: Arturo Sinclair Attending Provider: Arturo Sinclair
== END 2024-02-13 13:50 | disposition home or self-care (01) | DRG 378 ==
LOC: ER 18:33 → 2ND 19:25
PROVIDERS: Student in an Organized Health Care Education/Training Program; Surgery; Admitting Provider Family Medicine; Emergency Provider Emergency Medicine; PCP Family Medicine; Visit Provider Family Medicine
PROC: 0DJ08ZZ Inspection of Upper Intestinal Tract, Via Natural or Artificial Opening Endoscopic (ICD-10-PCS; CPT 43235; principal; 2024-02-12 08:00)
DX: K29.61 Other gastritis with bleeding (principal); D62 Acute posthemorrhagic anemia; I48.20 Chronic atrial fibrillation, unspecified; N28.89 Other specified disorders of kidney and ureter; E27.8 Other specified disorders of adrenal gland; Z79.01 Long term (current) use of anticoagulants; I25.10 Atherosclerotic heart disease of native coronary artery without angina pectoris; Z95.5 Presence of coronary angioplasty implant and graft; Z85.828 Personal history of other malignant neoplasm of skin; E78.2 Mixed hyperlipidemia; I12.9 Hypertensive chronic kidney disease with stage 1 through stage 4 chronic kidney disease, or unspecified chronic kidney disease; N18.9 Chronic kidney disease, unspecified; I34.1 Nonrheumatic mitral (valve) prolapse; I25.2 Old myocardial infarction
CPT/HCPCS: 43235; 36415; 71275; 74174; 80053; 85014; 85018; 85025; 85610; 86850; 93005; 99291; J7030; J7168; P9016; Q9967

== ENCOUNTER 2024-03-27 14:07 | Emergency (ER) | payer MEDICARE, SELFPAY ==
[2024-03-27 14:08] VITALS: BP 166/109; PULSE 77; RESP 16; TEMP 36.7; O2SAT 96; BMI 17.2
[2024-03-27 14:47] VITALS: BP 160/90; PULSE 77; RESP 18; TEMP 36.7; O2SAT 98; O2SAT 99
--- NOTE | 2024-03-27 15:44 | ED_ITS ---
Discharge Plan Disposition Patient Disposition: Home, Self-Care Condition: Good Prescriptions Prescriptions: No Action multivitamin [Daily Multi-Vitamin] Tablet 1 tab PO DAILY metoprolol succinate 200 mg tablet extended release 24 hr 200 mg PO DAILY Qty: 30 5RF Xarelto 15 mg tablet 15 mg PO DAILY ferrous sulfate [FeroSul] 325 mg (65 mg iron) tablet 325 mg PO TID atorvastatin [Lipitor] 40 mg Tablet 40 mg PO HS Qty: 30 3RF lisinopril 20 mg tablet 20 mg PO DAILY Patient Comments: TAKE 1 TABLET BY MOUTH ONCE DAILY FOR 90 DAYS Referrals Follow up/Referrals: Arturo Sinclair MD [Primary Care Provider] - See instructions Activity Restrictions/Add. Instructions Additional Instructions/Restrictions: You were evaluated in the emergency department today. Please continue taking your blood pressure twice a day, morning and night. Take your blood pressure medications at home daily as prescribed. Follow-up closely with your primary care provider for reassessment. Return to the emergency department for new or worsening symptoms, such as blood pressure greater than 200s on the top or 110 on the bottom, severe headache, chest pain, or other concerns. Clinical Impressions Clinical Impression: HBP (high blood pressure) Instructions Patient Instructions: DI for High Blood Pressure Print Language Print Language: [place] Discharge ED Provider: Joelle Valenzuela General Adult HPI General Chief complaint: Recheck/Abnormal Lab/Rx Stated complaint: high blood pressure Time Seen by Provider: 03/27/24 14:23 Mode of Arrival: Ambulatory Source of Information: Patient Limitations: No Limitations Description of Symptoms (Recalled from ER Triage Doc. by RN): Patient reports increased blood pressure. Denies any symptoms. History of Present Illness HPI narrative: This patient is an 88-year-old male with a history of hypertension, mitral valve prolapse, atrial fibrillation on Xarelto, hyperlipidemia presenting to the emergency department for evaluation with concern for high blood pressure. He reports that he checks it twice a day and usually it is fine, however today he noted that it was in the 160s to 170s at home. He states that he is feeling fine with no headache, chest pain, or other concerns. He has had no symptoms as of late. He notes that he did not sleep well last night, so he is not sure if that could be related. He takes medications for blood pressure at home, but he states he only takes them as needed. He does not take them on a daily basis. He states that he did take them today, but it does not seem to have helped his blood pressure so he decided to come in. He wanted to go to his primary care's office but they closed. Related Data Home Medications ?Medication ?Instructions ?Recorded ?Confirmed ferrous sulfate 325 mg (65 mg 325 mg PO TID 11/28/23 03/17/24 iron) tablet (FeroSul) multivitamin (Daily Multi-Vitamin 1 tab PO DAILY 11/28/23 03/17/24 tablet) lisinopril 20 mg tablet 20 mg PO DAILY 02/12/24 03/17/24 rivaroxaban 15 mg tablet (Xarelto) 15 mg PO DAILY 02/20/24 03/17/24 Previous Rx's ?Medication ?Instructions ?Recorded metoprolol succinate 200 mg 200 mg PO DAILY High blood 11/28/23 tablet,extended release 24 hr pressure #30 tabs atorvastatin 40 mg tablet (Lipitor) 40 mg PO HS #30 tabs 12/04/23 Allergies Allergy/AdvReac Type Severity Reaction Status Date / Time aspirin Allergy Other Verified 03/17/24 09:45 [facility] Disclaimer: The information contained in this section may have been updated after the patient was seen, as this information can be updated by other users. 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 Atrial fibrillation Skin cancer Surgical History History of colonoscopy History of esophagogastroduodenoscopy (EGD) Stented coronary artery History of eyelid surgery Family History Other Coronary artery disease Family history of hypertension Social History Smoking Status: Never smoker alcohol intake: never substance use type: denies use and other current occupational status: retired Travel in the last 8 weeks: None household members: spouse housing: house lives independently: No education level: middle school current occupational exposures/hazards: No caffeine: Yes special kusum needs: No agree to transfusion: No do you feel safe at home: Yes victim of physical abuse: No victim of emotional abuse: No victim of sexual abuse: No would you like helpful sources: No ROS Obtained: Yes All systems reviewed & no additional complaints except as documented Physical Exam General General appearance: alert and in no apparent distress Head Head exam: atraumatic and normocephalic Eye Eye exam: Present normal appearance, PERRL and EOMI ENT ENT exam: Present normal exam, normal oropharynx, mucous membranes moist and normal external ear exam Neck Neck exam: Present normal inspection, full ROM and trachea midline; Absent tenderness Chest Chest inspection: Present normal inspection and symmetric chest wall rise; Absent tenderness Respiratory Respiratory exam: Present normal lung sounds bilaterally; Absent respiratory distress, wheezes, stridor or accessory muscle use Cardiovascular Cardiovascular exam: Present regular rate and normal rhythm Abdominal Exam Abdominal exam: Present soft; Absent distention, tenderness or guarding Extremities Exam Extremities exam: Present normal inspection, full ROM and normal capillary refill; Absent tenderness or edema Back Exam Back exam: Present normal inspection and full ROM; Absent tenderness Neurological Exam Neurological exam: Present alert, oriented X3, CN II-XII intact and normal gait; Absent motor sensory deficit Psychiatric Psychiatric exam: Present normal affect and normal mood Skin Skin exam: Present warm and dry Medical Decision Making Medical Records Medical records reviewed: Yes I reviewed the patient's medical records. Screening: Per USPSTF and CDC recommendations, given the prevalence of disease in our region, it is our hospital?s policy to screen for HIV and viral Hepatitis for all patients aged 18 and over and those with ongoing risk factors. [place] Inquiry Pt receiving controlled substance: No Vital Signs: 03/27/24 14:08 03/27/24 14:47 03/27/24 14:47 Temperature 98.0 F 98.0 F Temperature Source Oral Oral Pulse Rate 77 Pulse Rate [Radial] 77 Respiratory Rate 16 18 Blood Pressure 160/90 H Blood Pressure [Right Arm] 166/109 H 160/90 H Blood Pressure Mean [Right Arm] 128 113 Blood Pressure Source Automatic Cuff Blood Pressure Source [Right Arm] Automatic Cuff Automatic Cuff Blood Pressure Position Sitting Blood Pressure Position [Right Arm] Sitting Sitting 02 Sat by Pulse Oximetry 96 99 Oxygen Delivery Method Room Air Room Air Lab Data Lab results reviewed: Yes I reviewed the patient's lab results. Medical Decision Narrative: In summary, this patient is a 88-year-old male presenting to the Emergency Department for evaluation of high blood pressure but no symptoms. Differential diagnoses considered include but are not limited to hypertension, hypertensive urgency, hypertensive emergency, ÓSCAR, ACS, asymptomatic hypertension. Ruling out the most morbid conditions drove assessment. On exam, the patient is very well-appearing with no symptoms, concerns, or complaints. Multiple repeat blood pressures in the 160s to 170s. Given that he does not have symptoms and his hypertension is not severe, I do not feel that labs or imaging are indicated at this time. He does not regularly take his blood pressure medications, so his hypertension is likely related to this. I advised that he take his medication as prescribed daily and take his blood pressure twice a day to keep an eye on it. Advised that if his blood pressure significantly increases or he starts to have any symptoms, such as headache, chest pain, or other concerns, he should return to the emergency department right away for evaluation. Otherwise, I do not feel that he needs changes in his medications at this time because hypotension would be more harmful to him than hypertension. Patient expressed understanding and agreement. He is to follow-up closely with his primary care provider next week for further assessment of this. Strict return precautions were given and he was discharged with instructions for close follow-up. Critical Care Critical Care Time Critical Care Time: No
== END 2024-03-27 14:48 | disposition home or self-care (01) ==
PROVIDERS: Emergency Provider Emergency Medicine; PCP Family Medicine
DX: I48.0 Paroxysmal atrial fibrillation (principal); I10 Essential (primary) hypertension; E78.5 Hyperlipidemia, unspecified; Z79.01 Long term (current) use of anticoagulants
CPT/HCPCS: 99283

== ENCOUNTER 2024-04-15 09:29 | Day surgery (SDC) | payer MEDICARE, SELFPAY ==
[2024-03-17 09:51] VITALS: BMI 17.2
[2024-04-15] VITALS (13 sets, daily range): BP systolic 121–162; BP diastolic 73–103; PULSE 88–104; RESP 16–18; TEMP 36.2–36.9; O2SAT 93–98; BMI 16.7
--- NOTE | 2024-04-15 10:11 | ECG_ITS ---
APPROVED REPORT Exam: Resting ECG HR:99 bpm ECG Measurements Heart Rate 99 AXES QRSd 110 QRS -66 QT 368 T 99 QTc 424 Conclusion ATRIAL FIBRILLATION WITH ABERRANT CONDUCTION OR VENTRICULAR PREMATURE COMPLEXES INCOMPLETE RIGHT BUNDLE BRANCH BLOCK [90+ ms QRS DURATION, TERMINAL R IN V1/V2, 40+ ms S IN I/aVL/V4/V5/V6] LEFT ANTERIOR FASCICULAR BLOCK [QRS AXIS <= -45, QR IN I, RS IN II] MODERATE VOLTAGE CRITERIA FOR LVH, CONSIDER NORMAL VARIANT [MEETS CRITERIA IN ONE OF: R(aVL), S(V1), R(V5), R(V5/V6)+S(V1)] POSSIBLE ANTERIOR MYOCARDIAL INFARCTION , OF INDETERMINATE AGE [30 ms Q WAVE IN V3/V4, OR R < 0.2 mV IN V4] ABNORMAL ECG UNCONFIRMED REPORT Electronically signed by : Sotero Ordoñez MD 04/16/2024 16:10:53
[2024-04-15 10:30] LABS: Basophils # 0.1 K/mm3 (0-0.2); Basophils % 0.9 % (0.1-2.0); Eosinophils # 0.1 K/mm3 (0.0-0.4); Eosinophils % 1.5 % (0.1-12.0); Hemoglobin 11.9 g/dL (14.1-18.0); Lymphocytes % 14.8 % (10-50); Mean Corpuscular HGB Conc 31.3 g/dL (31.8-35.4); Mean Corpuscular Hemoglobin 30.7 pg (27.0-31.2); Mean Corpuscular Volume 98.3 fl (80-94); Mean Platelet Volume 8.1 fl (7.4-10.4); Monocytes # 0.5 K/mm3 (0.1-1.0); Monocytes % 7.2 % (1.7-9.3); Neutrophils # 5.1 K/mm3 (1.8-7.8); Neutrophils % 75.5 % (37.0-80.0); Platelet Count 180 K/mm3 (142-424); Red Blood Count 3.87 M/mm3 (4.60-6.20); Red Cell Distribution Width 13.9 % (11.5-17.5); White Blood Count 6.7 K/mm3 (4.8-10.8)
[2024-04-15 10:35] LABS: Chloride 108 mmol/L (98-107); Potassium 4.4 mmoL/L (3.5-5.1); Sodium 143 mmol/L (136-145)
[2024-04-15 10:38] LABS: Anion Gap 9.4 mEq/L (5-15); Blood Urea Nitrogen 22 mg/dl (9-20); Calcium 9.2 mg/dl (8.4-10.2); Carbon Dioxide 30 mmol/L (22.0-30.0); Creatinine Clearance Estimated 24 mL/min (50-200); Estimated Glomerular Filt Rate 38 ml/min (>60); GFR (African American) 46 ML/MIN (>60); Glucose 88 mg/dl (74-100)
[2024-04-15 10:53] LABS: INR 1.13 (0.9-1.1); Prothrombin Time 12.5 seconds (10.1-12.5)
--- NOTE | 2024-04-15 11:20 | P.PNANES_ITS ---
[facility] Disclaimer: The information contained in this section may have been updated after the patient was seen, as this information can be updated by other users. 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 Atrial fibrillation Skin cancer Surgical History History of colonoscopy History of esophagogastroduodenoscopy (EGD) Stented coronary artery History of eyelid surgery Family History Other Coronary artery disease Family history of hypertension Social History Smoking Status: Never smoker alcohol intake: never substance use type: denies use and other current occupational status: retired Travel in the last 8 weeks: None household members: spouse housing: house lives independently: No education level: middle school current occupational exposures/hazards: No caffeine: Yes special kusum needs: No agree to transfusion: No do you feel safe at home: Yes victim of physical abuse: No victim of emotional abuse: No victim of sexual abuse: No would you like helpful sources: No [facility] Anesthesia Checklist Patient Identification Patient Identification: Arm Band, Verbal (Name & ) and Other: (Friend - Harvey) Structural Data Admitted From: Home Planned Operative Procedure/s: MANOJ w/Cardioversion Consent for Planned Operative Procedure(s) Verified: Yes Verified Documents: Surgical Consent and History and Physical NPO Status Verified Time NPO: 18:00 Chart Verification Results Verified: CBC, BMP, PT, PTT, INR, ECG and Chest Xray Additional verifications Patient : No Anesthesia Reactions: No Hx Blood Transfusions: No Blood Transfusion Reaction: No Cardiovascular Assessment Pulse Rhythm: Irregular Peripheral Edema: No Airway Assessment Mallampati Score:: Class II C-Spine Mobility Assessed: Yes (FROM) TMJ Mobility Assessed: Yes Dentition: Edentulous Neurological Assessment Level of Consciousness: Awake, Alert, Appropriate and Follows Commands Hx Seizures: No Numbness or tingling in extremities: No Anesthesia Plan Anesthesia Risk discussed: Yes Anesthesia Plan: Verified ASA Class: III Anesthesia Type: MAC
[2024-04-15] MEDS: LIDOCAINE 2% VISCOUS SOL 15ML UDC 30 ML PO (13:13)
--- NOTE | 2024-04-15 13:19 | CT_ITS ---
FINAL REPORT TECHNIQUE: Thin section axial CT images with coronal and sagittal reformats were performed through the neck. This study was performed with techniques to keep radiation doses as low as reasonably achievable (ALARA). Individualized dose reduction techniques using automated exposure control or adjustment of mA and/or kV according to the patient''s size were employed. CLINICAL HISTORY: POST MANOJ PAIN FINDINGS: There is lobular mucoperiosteal thickening in both maxillary sinuses. No air-fluid levels are identified. There is advanced disc space narrowing at C3-4, C4-5, and C5-6. There is minimal spondylolisthesis of C3 on 4. No subcutaneous emphysema is identified. There are small scattered cervical lymph nodes. Pleural and parenchymal scarring is seen at the apices. IMPRESSION: Chronic sinusitis. Advanced degenerative changes of the cervical spine. No acute abnormality. Reviewed, Interpreted and Dictated by Emiliano Gresham MD Transcribed by Sulma Shane Authenticated and [facility]
--- NOTE | 2024-04-15 13:29 | SUR.PHASEII ---
RADIOLOGY (ANIL) HERE TO GET PT FOR CT SCAN.
--- NOTE | 2024-04-15 14:23 | SUR.PHASEII ---
REPORT GIVEN TO Kathie CH RN
== END 2024-04-15 15:44 | disposition home or self-care (01) ==
PROVIDERS: PCP Family Medicine; Visit Provider Internal Medicine
DX: I48.20 Chronic atrial fibrillation, unspecified (principal); Z79.899 Other long term (current) drug therapy
CPT/HCPCS: 70490; 80048; 85025; 85610; 93005

== ENCOUNTER 2024-06-14 11:18 | Inpatient (IN) | payer MEDICARE, OTHER, SELFPAY ==
[2024-06-14] VITALS (15 sets, daily range): BP systolic 113–156; BP diastolic 76–104; PULSE 80–126; RESP 16–26; TEMP 36.4–37.5; O2SAT 83–96; BMI 16.7
--- NOTE | 2024-06-14 11:27 | PC.NURSE ---
DR WARD AT BEDSIDE
--- NOTE | 2024-06-14 11:29 | PC.NURSE ---
placed pt on 2lpm NC d/t room air sat 83%
--- NOTE | 2024-06-14 11:31 | ECG_ITS ---
APPROVED REPORT Exam: Resting ECG HR:105 bpm ECG Measurements Heart Rate 105 AXES QRSd 106 QRS -70 QT 352 T 104 QTc 413 Conclusion ATRIAL FIBRILLATION WITH RAPID VENTRICULAR RESPONSE WITH ABERRANT CONDUCTION OR VENTRICULAR PREMATURE COMPLEXES INCOMPLETE RIGHT BUNDLE BRANCH BLOCK [90+ ms QRS DURATION, TERMINAL R IN V1/V2, 40+ ms S IN I/aVL/V4/V5/V6] LEFT ANTERIOR FASCICULAR BLOCK [QRS AXIS <= -45, QR IN I, RS IN II] MINIMAL VOLTAGE CRITERIA FOR LVH, CONSIDER NORMAL VARIANT [MEETS CRITERIA IN ONE OF: R(aVL), S(V1), R(V5), R(V5/V6)+S(V1)] POSSIBLE ANTERIOR MYOCARDIAL INFARCTION , PROBABLY OLD [30 ms Q WAVE IN V3/V4, OR R < 0.2 mV IN V4] ABNORMAL ECG UNCONFIRMED REPORT Electronically signed by : BRITNEY VERDIN, 06/15/2024 23:24:10
--- NOTE | 2024-06-14 11:34 | XR_ITS ---
PROCEDURE INFORMATION: Exam: XR Chest Exam date and time: 06/14/2024 11:37 AM Age: 89 years old Clinical indication: Dyspnea TECHNIQUE: Imaging protocol: Radiologic exam of the chest. Views: 1 view. COMPARISON: CT ANGIO CHEST 02/11/2024 12:51 PM FINDINGS: Lungs: There are right lower lobe consolidating infiltrates concerning for pneumonia. The upper lung zones are clear. Pleural spaces: [id number] right pleural effusion. Heart/Mediastinum: Mild cardiomegaly. Bones/joints: Unremarkable. IMPRESSION: 1. Right lower lobe consolidating infiltrates concerning for pneumonia. 2. [id number] right pleural effusion.
--- NOTE | 2024-06-14 11:41 | ED_ITS ---
Discharge Plan Disposition Patient Disposition: Admitted Prescriptions Prescriptions: No Action multivitamin [Daily Multi-Vitamin] Tablet 1 tab PO DAILY Xarelto 15 mg tablet 15 mg PO DAILY amlodipine 2.5 mg tablet 2.5 mg PO DAILY Qty: 30 2RF metoprolol succinate 200 mg tablet extended release 24 hr See Rx Instructions .ROUTE .COMPLEX Qty: 90 3RF Dose Instruction: TAKE 1 TABLET BY MOUTH ONCE DAILY FOR HIGH BLOOD PRESSURE Rx Instructions: TAKE 1 TABLET BY MOUTH ONCE DAILY FOR HIGH BLOOD PRESSURE ferrous sulfate [FeroSul] 325 mg (65 mg iron) tablet 325 mg PO TID atorvastatin [Lipitor] 40 mg Tablet 40 mg PO HS Qty: 30 3RF lisinopril 20 mg tablet 20 mg PO DAILY Patient Comments: TAKE 1 TABLET BY MOUTH ONCE DAILY FOR 90 DAYS Referrals Follow up/Referrals: Arturo Sinclair MD [Primary Care Provider] - See instructions Clinical Impressions Clinical Impression: Acute hypoxic respiratory failure, Atrial fibrillation with RVR, Pulmonary edema, Pleural effusion, right, Edema of both legs, Decompensated heart failure Print Language Print Language: Arabic Discharge ED Provider: Linus Ramos General Chief Complaint: Shortness of Breath/Dyspnea Stated Complaint: SOA, body aches Time Seen by Provider: 06/14/24 11:25 Mode of Arrival: Wheelchair Source of Information: Patient Limitations: No Limitations Description of Symptoms (Recalled from ER Triage Doc. by RN): pt was brought in by neighbor for soa, weakness, and leg swelling going on over the last few days. pt has hx of afib, htn, high cholesterol History of Present Illness HPI narrative: Patient is an 89-year-old with a known history of atrial fibrillation on Xarelto also has a history of coronary disease with a stent who presents today with shortness of breath. Also has lower extremity edema. States the edema and shortness of breath have worsened over the last few days. No fevers or chills he is not on home oxygen does not carry diagnosis of COPD. Tells me he does not have a known history of heart failure. Related Data Home Medications ?Medication ?Instructions ?Recorded ?Confirmed ferrous sulfate 325 mg (65 mg 325 mg PO TID 11/28/23 04/29/24 iron) tablet (FeroSul) multivitamin (Daily Multi-Vitamin 1 tab PO DAILY 11/28/23 04/29/24 tablet) lisinopril 20 mg tablet 20 mg PO DAILY 02/12/24 04/29/24 rivaroxaban 15 mg tablet (Xarelto) 15 mg PO DAILY 02/20/24 04/29/24 Previous Rx's ?Medication ?Instructions ?Recorded atorvastatin 40 mg tablet (Lipitor) 40 mg PO HS #30 tabs 12/04/23 amlodipine 2.5 mg tablet 2.5 mg PO DAILY #30 tabs 04/29/24 metoprolol succinate 200 mg See Rx Instructions .Route 05/25/24 tablet,extended release 24 hr .COMPLEX #90 tabs Allergies Allergy/AdvReac Type Severity Reaction Status Date / Time aspirin Allergy Other Verified 04/29/24 14:39 [facility] Disclaimer: The information contained in this section may have been updated after the patient was seen, as this information can be updated by other users. Medical History Adrenal mass Renal mass Anticoagulated Abnormal electrocardiogram [ECG] [EKG] Elevated brain natriuretic peptide (BNP) level Elevated troponin Non-ST elevation CT (NSTEMI) Viral URI with cough Atrial fibrillation with RVR Acute kidney injury superimposed on CKD Nausea, vomiting and diarrhea Bleeding nose UTI (urinary tract infection) Hematuria History of GI bleed Diverticulosis Chronic atrial fibrillation Mitral valve prolapse Peripheral edema Hyperlipidemia Essential hypertension CAD (coronary artery disease) Seborrheic keratosis hypertrophic per pathology report Allergic to aspirin Chronic Kidney Disease 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 Atrial fibrillation Skin cancer Surgical History History of colonoscopy History of esophagogastroduodenoscopy (EGD) Stented coronary artery History of eyelid surgery Family History Other Coronary artery disease Family history of hypertension Social History Smoking Status: Never smoker alcohol intake: never substance use type: denies use and other current occupational status: retired Travel in the last 8 weeks: None household members: spouse housing: house lives independently: No education level: middle school current occupational exposures/hazards: No caffeine: Yes special kusum needs: No agree to transfusion: No do you feel safe at home: Yes victim of physical abuse: No victim of emotional abuse: No victim of sexual abuse: No would you like helpful sources: No Have you lived/traveled outside [place] in past 30 days?: No Contact w/someone who lives/traveled outside [place] past 30 days?: No Exposure to someone with infectious disease in past 14 days?: No Do you have a fever (greater than 100.4 F or 38 C)?: No Have you tested positive for COVID-19: No Exposed to someone with COVID-19 in past 14 days?: No Do you have a sore throat?: No Do you have a cough?: No Do you have any weakness?: No Do you have any diarrhea?: No Are you experiencing any unusual bleeding?: No Do you have any muscle aches/pain?: Yes Do you have any abdominal pain?: No Are you experiencing loss of taste or smell?: No Other Medical History Have you received the Flu Vaccine for this season: No Have you received the Pneumonia Vaccine: Yes ROS Obtained: Yes All systems reviewed & no additional complaints except as documented Physical Exam General General appearance: other (No respiratory distress but oxygen saturations 82% on room air corrected quickly on 4 L nasal cannula) Respiratory Respiratory exam: Present other (Right basilar crackles otherwise no focal adventitious lung sounds or clinical respiratory distress hypoxic as above) Cardiovascular Cardiovascular exam: Present tachycardia, irregular rhythm and other (2+ symmetric bilateral lower extremity edema) Neurological Exam Neurological exam: Present alert and oriented X3 HEART Score HEART Score HEART Score assessment performed?: No History (anamnesis): Slightly suspicious ECG: Non-specific disturbance Age: >65 years Risk factors: Atherosclerosis history Troponin: </= normal limit HEART Score: 5 Critical Care Critical Care Time Critical Care Time: Yes Attestation: On 06/14/24, the high probability of a clinically significant, sudden or life threatening deterioration of the following system(s) required my full and direct attention, intervention and personal management. The time I documented below is in addition to time spent performing reported procedures but includes the following listed in this critical care notation. Total Time Total Critical Care Time: 35 Medical Decision Making Nima Inquiry Pt receiving controlled substance: No Vital Signs Vital Signs: 06/14/24 11:19 06/14/24 11:28 06/14/24 11:30 Temperature 97.6 F Temperature Source Oral Pulse Rate 126 H Pulse Rate [Left Radial] 107 H Respiratory Rate 26 H 24 Blood Pressure Blood Pressure [Right Arm] 142/83 H Blood Pressure Mean [Right Arm] 102 02 Sat by Pulse Oximetry 85 L 83 L 88 L Oxygen Delivery Method Room Air Room Air Nasal Cannula Oxygen Flow Rate (LPM) 2 06/14/24 11:31 06/14/24 11:39 Temperature Temperature Source Pulse Rate 118 H 87 Pulse Rate [Left Radial] Respiratory Rate Blood Pressure 151/101 H 138/83 Blood Pressure [Right Arm] Blood Pressure Mean [Right Arm] 02 Sat by Pulse Oximetry 90 L 95 Oxygen Delivery Method Nasal Cannula Nasal Cannula Oxygen Flow Rate (LPM) 4 4 Lab Data Lab results reviewed: Yes I reviewed the patient's lab results. Labs: Lab Results 06/14/24 11:34: VBG pH 7.34, VBG pCO2 49.3, VBG pO2 37.3, VBG HCO3 25.8, VBG Total CO2 27.3 H, VBG O2 Saturation 62.9, VBG Base Excess -0.1, VBG Lactic Acid 1.5 06/14/24 11:37: WBC 8.2, RBC 3.79 L, Hgb 11.6 L, Hct 36.5 L, MCV 96.4 H, MCH 30.5, MCHC 31.6 L, RDW 16.3, Plt Count 245, MPV 7.7, Neut % (Auto) 76.1, Lymph % (Auto) 12.6, Moca % (Auto) 9.6 H, Eos % (Auto) 1.1, Baso % (Auto) 0.5, Neut # (Auto) 6.2, Lymph # (Auto) 1.0, Moca # (Auto) 0.8, Eos # (Auto) 0.1, Baso # (Auto) 0.0, D-Dimer 1.18 H, Sodium 143, Potassium 5.1, Chloride 109 H, Carbon Dioxide 30, Anion Gap 9.1, BUN 36 H, Creatinine 2.00 H, Estimated Creat Clear 20, Estimated GFR 32 L, Est GFR ( Amer) 38 L, Glucose 101 H, Calcium 9.1, Total Bilirubin 1.2, AST 41, ALT 40, Alkaline Phosphatase 93, Troponin I 0.01, N T-Pro-B Natriuret Pep 49763 H, Total Protein 7.0, Albumin 3.9, Globulin 3.1, Albumin/Globulin Ratio 1.3 06/14/24 11:37 06/14/24 11:37 Response Orders (Tests/Meds): ED MEDICATIONS Generic Name Dose Route Start Last Admin Trade Name Sharon PRN Reason Stop Dose Admin Furosemide 80 mg 06/14/24 12:30 Furosemide 40mg/4ml Vial IV 06/14/24 12:31 ONCE ONE ORDERS Category Date Time Status CXR --portable [XR chest portable] Stat Exams 06/14/24 11:34 Completed POCUS Point of Care (ER Only) Stat Exams 06/14/24 11:34 Ordered BNP [NT Pro Brain Natriuretic Pep.] Stat Lab 06/14/24 11:37 Completed CBC w/Auto Diff [Complete Blood Count Auto Diff] Stat Lab 06/14/24 11:37 Completed CMP [Comprehensive Metabolic Panel] Stat Lab 06/14/24 11:37 Completed D-Dimer Stat Lab 06/14/24 11:37 Completed Rapid PCR Covid and Flu A/B Stat Lab 06/14/24 11:34 Received Trop I [Troponin I] Stat Lab 06/14/24 11:37 Completed Troponin I Q3H Lab 06/14/24 14:45 Ordered Troponin I Q3H Lab 06/14/24 17:45 Ordered Blood Culture Stat Micro 06/14/24 11:34 Ordered Venous Blood Gas Stat RT 06/14/24 11:34 Completed ECG Data Tracing #1: Attestation: I reviewed this ECG and interpreted as documented below: ECG Narrative: Ventricular rate of 105 atrial fibrillation with rapid ventricular response there is an incomplete right bundle branch block and left anterior fascicular block no definitive acute ST elevations or depressions MDM Narrative Medical Decision Narrative: 89-year-old presenting today with dyspnea bilateral lower extremity edema who also has hypoxic respiratory failure. Differential includes pneumonia, decompensated heart failure, pulmonary embolism etc. Broad workup is pending will do a limited bedside ultrasound of his heart to further differentiate this. At the moment he is being corrected with 4 L nasal cannula and is clinically stable. Chest x-ray performed which I personally interpreted which shows a moderate right-sided pleural effusion. No focal consolidation noted. Bedside ultrasound demonstrated preserved ejection fraction no severe right heart strain and diffuse pulmonary edema and a right pleural effusion that appears completely anechoic without debris or evidence of consolidation. This is all consistent with most likely with heart failure with preserved ejection fraction and volume overload/decompensation. Will need IV diuretics's oxygen saturations are in the mid 80s now on 6 L he has been placed on a Ventimask. His D-dimer was elevated above 1 however his GFR is near 30 I believe the risk of contrasted CTA outweighs any benefit in this particular case. However pulmonary embolus not yet ruled out we will see how he responds to diuretics. I discussed the case with Dr. Gardner who is on-call for Dr. Sinclair and because we believe the patient is relatively na?ve to diuretics we will start him on 80 of IV Lasix knowing that he has some renal insufficiency we will keep a close eye on that. Will see how he responds he will be admitted with close observation. He is currently on a Ventimask and is stable.
--- NOTE | 2024-06-14 11:42 | PC.NURSE ---
XR AT BEDSIDE
[2024-06-14 11:48] LABS: Basophils % 0.5 % (0.1-2.0); Eosinophils # 0.1 K/mm3 (0.0-0.4); Eosinophils % 1.1 % (0.1-12.0); Hematocrit 36.5 % (42.0-52.0); Hemoglobin 11.6 g/dL (14.1-18.0); Lymphocytes % 12.6 % (10-50); Mean Corpuscular HGB Conc 31.6 g/dL (31.8-35.4); Mean Corpuscular Hemoglobin 30.5 pg (27.0-31.2); Mean Corpuscular Volume 96.4 fl (80-94); Mean Platelet Volume 7.7 fl (7.4-10.4); Monocytes # 0.8 K/mm3 (0.1-1.0); Monocytes % 9.6 % (1.7-9.3); Neutrophils # 6.2 K/mm3 (1.8-7.8); Neutrophils % 76.1 % (37.0-80.0); Platelet Count 245 K/mm3 (142-424); Red Blood Count 3.79 M/mm3 (4.60-6.20); Red Cell Distribution Width 16.3 % (11.5-17.5); White Blood Count 8.2 K/mm3 (4.8-10.8)
[2024-06-14 11:51] LABS: Coronavirus 19, PCR Not Detected (NotDetected); Influenza A, PCR Not Detected (NotDetected); Influenza B, PCR Not Detected (NotDetected)
[2024-06-14 11:52] LABS: Lactate Venous 1.5 mmol/L (0.4-2.0); VBG Base Excess -0.1 mmol/L (-2.4-2.3); VBG HCO3 25.8 mmol/L (23-30); VBG Oxygen Saturation 62.9 % (50-70); VBG PCO2 49.3 mmol/L (35-51); VBG PH 7.34 mmol/L (7.31-7.41); VBG PO2 37.3 mmol/L (28-40); VBG Total CO2 27.3 mmol/L (23-27)
[2024-06-14 11:54] LABS: Albumin Level 3.9 g/dl (3.5-5.0); Chloride 109 mmol/L (98-107); Potassium 5.1 mmoL/L (3.5-5.1); Sodium 143 mmol/L (136-145)
[2024-06-14 11:57] LABS: Alanine Aminotransferase 40 U/L (12-78); Albumin/Globulin Ratio 1.3 (1.1-1.8); Alkaline Phosphatase 93 U/L (38-126); Anion Gap 9.1 mEq/L (5-15); Aspartate Amino Transferase 41 U/L (17-59); Bilirubin,Total 1.2 mg/dl (0.2-1.3); Blood Urea Nitrogen 36 mg/dl (9-20); Calcium 9.1 mg/dl (8.4-10.2); Carbon Dioxide 30 mmol/L (22.0-30.0); Creatinine Clearance Estimated 20 mL/min (50-200); Estimated Glomerular Filt Rate 32 ml/min (>60); GFR (African American) 38 ML/MIN (>60); Globulin 3.1 g/dL (1.3-3.2); Glucose 101 mg/dl (74-100)
[2024-06-14 12:03] LABS: D-Dimer 1.18 ug/mL (0.0-0.5)
[2024-06-14 12:06] LABS: NT Pro Brain Natriuretic Pep. 25900 pg/mL (0-450)
[2024-06-14 12:11] LABS: Troponin I 0.01 ng/ml (0.00-0.034)
--- NOTE | 2024-06-14 12:32 | PC.NURSE ---
INSERT CUTTER NOTIFIED OF ADMISSION
[2024-06-14] MEDS: FUROSEMIDE 40MG/4ML VIAL 80 MG IV (12:33)
--- NOTE | 2024-06-14 12:36 | PC.NURSE ---
PT WILL REQUIRE STEP-DOWN ROOM, WILL TAKE LONGER FOR ADMISSION, WHILE ROOM IS BEING CLEANED
--- NOTE | 2024-06-14 14:43 | PC.NURSE ---
Pt refuses Molina catheter. Pt states he wants to eat. Will try to place male purewick after pt eats.
[2024-06-14 15:04] LABS: Troponin I 0.01 ng/ml (0.00-0.034)
[2024-06-14 17:23] LABS: Adenovirus,PCR Not Detected (NotDetected); Bordetella Pertussis Not Detected (NotDetected); Chlamydophila Pneumoniae, PCR Not Detected (NotDetected); Coronavirus 19, PCR Not Detected (NotDetected); Coronavirus 229E Not Detected (NotDetected); Coronavirus NL63 Not Detected (NotDetected); Coronavirus OC43 Not Detected (NotDetected); Coronovirus HKU1,PCR Not Detected (NotDetected); Human Metapneumovirus Not Detected (NotDetected); Influenza A, PCR Not Detected (NotDetected); Influenza AH1, 2009 Not Detected (NotDetected); Influenza AH1, PCR Not Detected (NotDetected); Influenza AH3,PCR Not Detected (NotDetected); Influenza B, PCR Not Detected (NotDetected); Mycoplasma Pneumoniae, PCR Not Detected (NotDetected); Parainfluenza 1, PCR Not Detected (NotDetected); Parainfluenza 2, PCR Not Detected (NotDetected); Parainfluenza 3, PCR Not Detected (NotDetected); Parainfluenza 4, PCR Not Detected (NotDetected); Respiratory Syncytial Virus Not Detected (NotDetected); Rhinovirus/Enterovirus Not Detected (NotDetected)
[2024-06-14] MEDS: RIVAROXABAN 15 MG 1 EACH PO (17:47)
[2024-06-14] MEDS: METOPROLOL 200 MG 1 EACH PO (17:47)
--- NOTE | 2024-06-14 18:04 | PC.NURSE ---
Pt is A&O x4. Sitting up in bed eating dinner. Pt has had 1450 ml urine output since arrival to the floor. Purewick in place. Pt refused F/C earlier. He is currently on Vapotherm 30 L 60%. He had a 30 beat run of VTACH noted on telemetry. MD Ordoñez was notified. New orders received and carried out. Call light within reach. Safety measures in place.
[2024-06-14 18:11] LABS: Troponin I < 0.01 ng/ml (0.00-0.034)
[2024-06-14] MEDS: PAT OWN MED ***FERROUS SULFATE 325MG 325 MG PO (20:49)
[2024-06-14] MEDS: PAT OWN MED ***ATORVASTATIN 40MG 40 MG PO (20:49)
[2024-06-15] VITALS (31 sets, daily range): BP systolic 90–121; BP diastolic 49–71; PULSE 80–119; RESP 12–29; TEMP 36.8–37.6; O2SAT 86–99; BMI 18.4
[2024-06-15 07:21] LABS: Albumin Level 3.3 g/dl (3.5-5.0); Chloride 106 mmol/L (98-107); Potassium 4.5 mmoL/L (3.5-5.1); Sodium 139 mmol/L (136-145)
[2024-06-15 07:23] LABS: Blood Urea Nitrogen 37 mg/dl (9-20); Creatinine Clearance Estimated 23 mL/min (50-200); Estimated Glomerular Filt Rate 34 ml/min (>60); GFR (African American) 41 ML/MIN (>60)
[2024-06-15 07:24] LABS: Alanine Aminotransferase 33 U/L (12-78); Albumin/Globulin Ratio 1.1 (1.1-1.8); Alkaline Phosphatase 78 U/L (38-126); Anion Gap 5.5 mEq/L (5-15); Aspartate Amino Transferase 33 U/L (17-59); Bilirubin,Total 1.3 mg/dl (0.2-1.3); Calcium 8.7 mg/dl (8.4-10.2); Carbon Dioxide 32 mmol/L (22.0-30.0); Globulin 2.9 g/dL (1.3-3.2); Glucose 88 mg/dl (74-100); Total Protein,Serum 6.2 g/dl (6.3-8.2)
[2024-06-15 07:29] LABS: Basophils % 0.2 % (0.1-2.0); Eosinophils % 0.1 % (0.1-12.0); Hematocrit 34.5 % (42.0-52.0); Lymphocytes # 0.6 K/mm3 (0.7-4.5); Lymphocytes % 3.9 % (10-50); Mean Corpuscular HGB Conc 31.9 g/dL (31.8-35.4); Mean Corpuscular Hemoglobin 30.8 pg (27.0-31.2); Mean Corpuscular Volume 96.4 fl (80-94); Mean Platelet Volume 8.1 fl (7.4-10.4); Monocytes # 1.1 K/mm3 (0.1-1.0); Monocytes % 7.4 % (1.7-9.3); Neutrophils # 12.5 K/mm3 (1.8-7.8); Neutrophils % 88.3 % (37.0-80.0); Platelet Count 215 K/mm3 (142-424); Red Blood Count 3.58 M/mm3 (4.60-6.20); Red Cell Distribution Width 16.5 % (11.5-17.5); White Blood Count 14.2 K/mm3 (4.8-10.8)
[2024-06-15 07:34] LABS: MANUAL DIFFERENTIAL MANUAL DIFFERENTIAL (MANUAL DIFF)
[2024-06-15 08:52] LABS: Eosinophils % 1 % (0-3); Lymphocytes % 4 % (10-50); Monocytes % 10 % (2-9); Neutrophils % 85 % (42-76); Platelet Estimate Normal; RBC Morphology Normal; Total Cells Counted 100
--- NOTE | 2024-06-15 08:56 | CA_ITS ---
APPROVED REPORT EXAM: Comprehensive 2D, Doppler, and color-flow Echocardiogram [employer] Supervisor: Olga Coronel RVT Ht: 5 ft 0 in Wt: 132lbs BSA: 1.56 BP: 138/83 mmHg Indications: CHF,A-FIB,CAD,EDEMA,HTN,SOA,RT PLEUARAL EFFUSION,EF OF 45% ON 12/09/23 TDS-PT ON BACK WITH HIGH FLOW O2 2D Dimensions IVSd 1.55 cm M: 0.6-1.2 LVEF (Visual) 50.10 % PWd 1.02 cm M: 0.6 - 1.2 LVDd 3.06 cm M: 4.2 - 5.9 LVDs 2.31 cm M: 2.5 - 4.0 M-Mode Dimensions RVDd 2.92 cm (0.9-2.6) LA Diam 3.54 cm (1.9-4.0) LVDd 4.68 cm (3.5-5.7) LVDs 2.81 cm (3.5-5.7) IVSd 1.30 cm (0.6-1.1) PWd 0.72 cm (0.6-1.1) EF (Teich) 70.60% FS 40.00% EDV (Teich) 101.30 mL ESV (Teich) 29.80 mL Aortic Valve CORRINA Index 0.96 cm2/m2 AoV Peak Sha. 111.0 (50-130 cm/s) AO Peak GR. 4.90 mmHg AO Mean GR. 2.70 (<5 mmHg) AO VTI 19.0 (18-25 cm) CORRINA (VTI) 1.54 (2.5-4.5 cm2) Pulmonary Valve PV Peak Velocity 53.0 (50-150 cm/s) Tricuspid Valve TR P. Velocity 356.00 cm/s RAP Estimate 10.00 mmHg RVSP 60.60 mmHg Left Ventricle The left ventricle is normal size. Left ventricular systolic function is mildly decreased. There is increased LV wall thickness. There is septal flattening, consistent with elevated right-sided pressures. Grade 1 diastolic dysfunction is present. LVEF is 45%. Right Ventricle Right ventricle is mildly dilated. Right ventricular systolic function is severely reduced. Atria Left atrium is moderately dilated. Right atrium is moderately dilated. There is no Doppler evidence of interatrial shunt. Aortic Valve The aortic valve is mildly thickened. There is no aortic valvular stenosis. No aortic regurgitation is present. Mitral Valve Mild mitral annular calcification. Mild mitral regurgitation. The mitral valve leaflets are mildly thickened. No evidence of mitral valve stenosis. Tricuspid Valve Tricuspid valve is grossly normal in structure and function. Mild tricuspid regurgitation. RVSP is 50-55 mmHg. Pulmonic Valve The pulmonary valve is normal in structure. Mild pulmonic regurgitation. Great Vessels The aortic root is normal in size. The ascending aorta is normal in size. Pericardium Small sized, posterior pericardial effusion is present. The largest pocket measures 0.3 cm in diastole. No echo indications of tamponade. Pleural effusion is present. Other Information Study Quality: Fair Conclusion Mildly reduced LV systolic function (LVEF 45%). Septal flattening, consistent with elevated right-sided pressures. Moderate RV dilation with severe reduction in RV function. Biatrial dilation. Mild MR, mild TR. Markedly elevated RVSP 50-55 mmHg. Small sized, posterior pericardial effusion is present. The largest pocket measures 0.3 cm in diastole. No echo indications of tamponade. Pleural effusion. When directly compared to the prior study from 11/2023, the reduction in RV function is new. Further evaluation for RV dysfunction is suggested. Electronically signed by : Julissa Rocha MD 06/15/2024 11:51:53
[2024-06-15] MEDS: PAT OWN MED ***FERROUS SULFATE 325MG 325 MG PO (09:02)
[2024-06-15] MEDS: LORATADINE 10MG TABLET 10 MG PO (09:03)
--- NOTE | 2024-06-15 09:18 | EXP.HP ---
History of Present Illness *Admission Date: 06/14/24 *Reason for visit:: Weakness and swelling in his legs. *History of present illness: Mr. Bueno is AN 89-year-old male with a history of hypertension, mitral valve prolapse, atrial fibrillation, basal cell carcinoma, rectal bleeding, diverticulosis, and chronic kidney disease who presented to [facility] with progressive edema in both bilateral lower extremities making it difficult to walk. He states he felt very weak. He states he was slightly short of breath but denied having any chest pain. He denies any cough or other respiratory symptoms. With evaluation in the emergency room white blood cell count was 8200 with a hemoglobin of 11.6 hematocrit 36.5. BUN was noted to be 36 with a creatinine of 2. GFR was 32. [employer] was 25,900. Chest x-ray showed right lower lobe consolidation infiltrates concerning for pneumonia and a small to moderate right pleural effusion. He was given 80 mg of Lasix IV 2b and heart failure with preserved ejection fraction and volume overload/decompensation. He was then admitted for further evaluation and treatment. This a.m. he states he did not sleep well due to the noise of the oxygen and other noises in the room. He did eat well for breakfast. He states he is not short of breath and does not have a cough. He remains on oxygen at 40% as per Vapotherm. [facility] Disclaimer: The information contained in this section may have been updated after the patient was seen, as this information can be updated by other users. Medical History (Updated 06/15/24 @ 13:55 by Yessi Ramírez MD) Pleural effusion, bilateral Adrenal mass Renal mass Anticoagulated Abnormal electrocardiogram [ECG] [EKG] Elevated brain natriuretic peptide (BNP) level Elevated troponin Non-ST elevation PA (NSTEMI) Viral URI with cough Atrial fibrillation with RVR Acute kidney injury superimposed on CKD Nausea, vomiting and diarrhea Bleeding nose UTI (urinary tract infection) Hematuria History of GI bleed Diverticulosis Chronic atrial fibrillation Mitral valve prolapse Peripheral edema Hyperlipidemia Essential hypertension CAD (coronary artery disease) Seborrheic keratosis Allergic to aspirin Chronic Kidney Disease 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 Atrial fibrillation Skin cancer Surgical History History of colonoscopy History of esophagogastroduodenoscopy (EGD) Stented coronary artery History of eyelid surgery Family History Other Coronary artery disease Family history of hypertension Social History (Updated 06/14/24 @ 13:51 by Shelley Burkett RN) Smoking Status: Never smoker alcohol intake: never substance use type: denies use and other current occupational status: retired Travel in the last 8 weeks: None household members: spouse housing: house lives independently: No education level: middle school current occupational exposures/hazards: No caffeine: Yes special kusum needs: No agree to transfusion: No do you feel safe at home: Yes victim of physical abuse: No victim of emotional abuse: No victim of sexual abuse: No would you like helpful sources: No Have you lived/traveled outside US in past 30 days?: No Contact w/someone who lives/traveled outside US past 30 days?: No Exposure to someone with infectious disease in past 14 days?: No Do you have a fever (greater than 100.4 F or 38 C)?: No Have you tested positive for COVID-19: No Exposed to someone with COVID-19 in past 14 days?: No Do you have a sore throat?: No Do you have a cough?: No Do you have any weakness?: No Do you have any diarrhea?: No Are you experiencing any unusual bleeding?: No Do you have any muscle aches/pain?: Yes Do you have any abdominal pain?: No Are you experiencing loss of taste or smell?: No Other Medical History Have you received the Flu Vaccine for this season: Yes Have you received the Pneumonia Vaccine: Yes Meds Home Medications and Allergies Home Medications ?Medication ?Instructions ?Recorded ?Confirmed ?Type ferrous sulfate 325 mg (65 mg 325 mg PO TID 11/28/23 06/14/24 History iron) tablet (FeroSul) multivitamin (Daily Multi-Vitamin 1 tab PO DAILY 11/28/23 06/14/24 History tablet) atorvastatin 40 mg tablet (Lipitor) 40 mg PO HS #30 tabs 12/04/23 06/14/24 Rx lisinopril 20 mg tablet 20 mg PO DAILY 02/12/24 06/14/24 History rivaroxaban 15 mg tablet (Xarelto) 15 mg PO QPMWITHMEAL 02/20/24 06/14/24 History amlodipine 2.5 mg tablet 2.5 mg PO DAILY #30 tabs 04/29/24 06/14/24 Rx furosemide 20 mg tablet 20 mg PO DAILY 06/14/24 06/14/24 History loratadine 10 mg tablet 10 mg PO DAILY 06/14/24 06/14/24 History metoprolol succinate 200 mg 200 mg PO DAILY 06/14/24 06/14/24 History tablet,extended release 24 hr New Prescriptions to Start Prescriptions: Allergies Allergy/AdvReac Type Severity Reaction Status Date / Time aspirin Allergy Other Verified 04/29/24 14:39 Exam Data for Last 24 hours Vital signs and Labs for Last 24 Hours: Temp Pulse Resp BP Pulse Ox O2 Del Method O2 Flow Rate 98.3 F 80 19 110/60 94 L Vapotherm 20 06/15/24 08:00 06/15/24 06:00 06/15/24 06:00 06/15/24 06:00 06/15/24 07:49 06/15/24 07:49 06/15/24 07:49 FiO2 40 06/15/24 07:49 Laboratory Results - last 24 hr 06/14/24 11:34: VBG pH 7.34, VBG pCO2 49.3, VBG pO2 37.3, VBG HCO3 25.8, VBG Total CO2 27.3 H, VBG O2 Saturation 62.9, VBG Base Excess -0.1, VBG Lactic Acid 1.5, SARS-CoV-2 (PCR) Not detected, Influenza A Untype (PCR) Not detected, Influenza Type B (PCR) Not detected 06/14/24 11:37: WBC 8.2, RBC 3.79 L, Hgb 11.6 L, Hct 36.5 L, MCV 96.4 H, MCH 30.5, MCHC 31.6 L, RDW 16.3, Plt Count 245, MPV 7.7, Neut % (Auto) 76.1, Lymph % (Auto) 12.6, [place] % (Auto) 9.6 H, Eos % (Auto) 1.1, Baso % (Auto) 0.5, Neut # (Auto) 6.2, Lymph # (Auto) 1.0, [place] # (Auto) 0.8, Eos # (Auto) 0.1, Baso # (Auto) 0.0, D-Dimer 1.18 H, Sodium 143, Potassium 5.1, Chloride 109 H, Carbon Dioxide 30, Anion Gap 9.1, BUN 36 H, Creatinine 2.00 H, Estimated Creat Clear 20, Estimated GFR 32 L, Est GFR ( Amer) 38 L, Glucose 101 H, Calcium 9.1, Total Bilirubin 1.2, AST 41, ALT 40, Alkaline Phosphatase 93, Troponin I 0.01, NT-Pro-B Natriuret Pep 84524 H, Total Protein 7.0, Albumin 3.9, Globulin 3.1, Albumin/Globulin Ratio 1.3 06/14/24 14:35: Troponin I 0.01 06/14/24 17:30: Troponin I < 0.01 06/14/24 : Chlamy pneumoniae PCR Not detected, Adenovirus (PCR) Not detected, B. pertussis DNA (PCR) Not detected, Coronavirus OC43 (PCR) Not detected, Coronavirus HKU1 (PCR) Not detected, Coronavirus 229E (PCR) Not detected, SARS-CoV-2 (PCR) Not detected, Coronavirus NL63 (PCR) Not detected, Human Metapneumovir PCR Not detected, Influenza A (H1) PCR Not detected, Influ A (H1N1/09) PCR Not detected, Influenza A (H3) PCR Not detected, Influenza Type A (PCR) Not detected, Influenza Type B (PCR) Not detected, M. pneumoniae (PCR) Not detected, Parainfluenza 1 (PCR) Not detected, Parainfluenza 2 (PCR) Not detected, Parainfluenza 3 (PCR) Not detected, Parainfluenza 4 (PCR) Not detected, RSV (PCR) Not detected, Entero/Rhino (PCR) Not detected 06/15/24 05:46: WBC 14.2 H D, RBC 3.58 L, Hgb 11.0 L, Hct 34.5 L, MCV 96.4 H, MCH 30.8, MCHC 31.9, RDW 16.5, Plt Count 215, MPV 8.1, Neut % (Auto) 88.3 H, Lymph % (Auto) 3.9 L, [place] % (Auto) 7.4, Eos % (Auto) 0.1, Baso % (Auto) 0.2, Neut # (Auto) 12.5 H, Lymph # (Auto) 0.6 L, [place] # (Auto) 1.1 H, Eos # (Auto) 0.0, Baso # (Auto) 0.0, Total Counted 100, Neutrophils % (Manual) 85 H, Lymphocytes % (Manual) 4 L, Monocytes % (Manual) 10 H, Eosinophils % (Manual) 1, Platelet Estimate Normal, RBC Morphology Normal, Sodium 139, Potassium 4.5, Chloride 106, Carbon Dioxide 32 H, Anion Gap 5.5, BUN 37 H, Creatinine 1.90 H, Estimated Creat Clear 23, Estimated GFR 34 L, Est GFR ( Amer) 41 L, Glucose 88, Calcium 8.7, Magnesium 2.0, Total Bilirubin 1.3, AST 33, ALT 33, Alkaline Phosphatase 78, Total Protein 6.2 L, Albumin 3.3 L D, Globulin 2.9, Albumin/Globulin Ratio 1.1 I & O for Last 24 hours: Intake & Output 06/12/24 06/13/24 06/14/24 06/15/24 11:59 11:59 11:59 11:59 Intake Total 600 / 600 Output Total 2650 / 2650 Balance -2049 / -2049 Weight 120 lb 132 lb Constitutional Constitutional: no acute distress and thin Comments: Sitting up in the bed and appears comfortable. *Routine HEENT Exam Head: Present normocephalic and atraumatic Eye: Present PERRL; Absent conjunctival icterus, scleral injection or conjunctivae pink ENT: Present mucous membranes moist and oropharynx clear *Routine Neck Exam Neck: Present supple; Absent carotid bruit, lymphadenopathy or thyromegaly *Routine Respiratory Exam Respiratory: Present diminished air movement (on right side) and symmetric chest movement Comments: Diminished breath sounds on the right. *Routine Cardiovascular Exam Cardiovascular: Present murmur and irregular rhythm *Routine Abdominal Exam Abdominal: Present normoactive bowel sounds; Absent tenderness or distended *Routine Rectal Exam Rectal:: deferred *Routine Genitalia Exam Genitalia:: deferred *Routine Extremities Exam Extremities: Present edema (Bilateral lower extremities) *Routine Neurological Exam Neurological: Present alert and oriented X3 Assessment and Plan *Assessment and plan (1) Acute hypoxic respiratory failure: Status: Acute Category: Medical Code(s): J96.01 - Acute respiratory failure with hypoxia (2) Edema of both legs: Status: Acute Category: Medical Code(s): R60.0 - Localized edema (3) Decompensated heart failure: Status: Acute Category: Medical Code(s): I50.9 - Heart failure, unspecified (4) Pleural effusion, right: Status: Acute Category: Medical Code(s): J90 - Pleural effusion, not elsewhere classified (5) Pulmonary edema: Status: Acute Category: Medical Code(s): J81.1 - Chronic pulmonary edema (6) Atrial fibrillation with RVR: Status: Acute Category: Medical Code(s): I48.91 - Unspecified atrial fibrillation (7) HBP (high blood pressure): Status: Acute Category: Medical Code(s): I10 - Essential (primary) hypertension (8) Renal insufficiency: Status: Acute Category: Medical Code(s): N28.9 - Disorder of kidney and ureter, unspecified (9) Hypotension: Status: Acute Category: Medical Code(s): I95.9 - Hypotension, unspecified Plan diuresis; monitor labs ; ECHO; wean to nasal O2; place on cardiac/vascular sonographer Dr. Sinclair entry - Saw patient, agree with above note, pulmonology to see patient.
[2024-06-15] MEDS: METOPROLOL TARTRATE 25MG TABLET 12.5 MG PO ×2 (09:27→21:34)
--- NOTE | 2024-06-15 10:02 | EXP.PULM.CON ---
History of Present Illness History of present illness: Mr. Shaw is a 89-year-old male presented today with worsening respiratory distress and bilateral lower extremity edema and pulmonary was called for further evaluation and management. He denies any significant smoking history. Not having any respiratory symptoms couple of months ago. Progressively worsening respiratory chest for the last 2 to 3 weeks bilateral worsening lower extremity swelling. [facility] Disclaimer: The information contained in this section may have been updated after the patient was seen, as this information can be updated by other users. Medical History (Updated 06/15/24 @ 13:55 by Yessi Ramírez MD) Pleural effusion, bilateral Adrenal mass Renal mass Anticoagulated Abnormal electrocardiogram [ECG] [EKG] Elevated brain natriuretic peptide (BNP) level Elevated troponin Non-ST elevation NM (NSTEMI) Viral URI with cough Atrial fibrillation with RVR Acute kidney injury superimposed on CKD Nausea, vomiting and diarrhea Bleeding nose UTI (urinary tract infection) Hematuria History of GI bleed Diverticulosis Chronic atrial fibrillation Mitral valve prolapse Peripheral edema Hyperlipidemia Essential hypertension CAD (coronary artery disease) Seborrheic keratosis Allergic to aspirin Chronic Kidney Disease 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 Atrial fibrillation Skin cancer Surgical History History of colonoscopy History of esophagogastroduodenoscopy (EGD) Stented coronary artery History of eyelid surgery Family History Other Coronary artery disease Family history of hypertension Social History (Updated 06/14/24 @ 13:51 by Shelley Burkett RN) Smoking Status: Never smoker alcohol intake: never substance use type: denies use and other current occupational status: retired Travel in the last 8 weeks: None household members: spouse housing: house lives independently: No education level: middle school current occupational exposures/hazards: No caffeine: Yes special kusum needs: No agree to transfusion: No do you feel safe at home: Yes victim of physical abuse: No victim of emotional abuse: No victim of sexual abuse: No would you like helpful sources: No Have you lived/traveled outside US in past 30 days?: No Contact w/someone who lives/traveled outside US past 30 days?: No Exposure to someone with infectious disease in past 14 days?: No Do you have a fever (greater than 100.4 F or 38 C)?: No Have you tested positive for COVID-19: No Exposed to someone with COVID-19 in past 14 days?: No Do you have a sore throat?: No Do you have a cough?: No Do you have any weakness?: No Do you have any diarrhea?: No Are you experiencing any unusual bleeding?: No Do you have any muscle aches/pain?: Yes Do you have any abdominal pain?: No Are you experiencing loss of taste or smell?: No Review of Systems Constitutional Constitutional: Reports anorexia, Reports body ache(s), Reports fatigue and Reports lethargy Eyes Eyes: Denies eye discharge, Denies dry eyes, Denies irritation and Denies itchy eyes ENT Ears, Nose, Mouth, and Throat: Denies epistaxis, Denies facial pain, Denies lip swelling and Denies throat swelling *Cardiovascular Cardiovascular: Reports dyspnea, Reports dyspnea on exertion, Reports leg edema, Reports orthopnea and Reports pedal edema *Respiratory Respiratory: Denies change in phlegm color, Reports chest congestion, Reports cough, Reports dyspnea, Reports dyspnea on exertion, Denies excessive phlegm production, Denies hemoptysis, Denies pain on inspiration, Denies pain with cough and Denies wheezing *Gastrointestinal Gastrointestinal: Denies abdominal pain, Denies belching and Denies cramping *Musculoskeletal Musculoskeletal: Reports back pain, Reports myalgias and Reports other (No small joint swelling or Pain) Psychiatric Psychiatric: Denies homicidal ideation and Denies suicidal ideation Endocrine Endocrine: Reports fatigue and Denies heat intolerance Hematologic/Lymphatic Hematologic/Lymphatic: Denies easy bleeding and Denies lymphadenopathy Allergic/Immunologic Allergic/Immunologic: Denies itchy eyes, Denies lip swelling, Denies throat swelling and Denies wheezing Pulmonology Exam Inpatient Vital signs and Labs for Last 24 Hours: Temp Pulse Resp BP Pulse Ox O2 Del Method O2 Flow Rate 98.3 F 80 19 110/60 94 L Vapotherm 20 06/15/24 08:00 06/15/24 06:00 06/15/24 06:00 06/15/24 06:00 06/15/24 07:49 06/15/24 08:00 06/15/24 07:49 FiO2 40 06/15/24 07:49 Laboratory Results - last 24 hr 06/14/24 11:34: VBG pH 7.34, VBG pCO2 49.3, VBG pO2 37.3, VBG HCO3 25.8, VBG Total CO2 27.3 H, VBG O2 Saturation 62.9, VBG Base Excess -0.1, VBG Lactic Acid 1.5, SARS-CoV-2 (PCR) Not detected, Influenza A Untype (PCR) Not detected, Influenza Type B (PCR) Not detected 06/14/24 11:37: WBC 8.2, RBC 3.79 L, Hgb 11.6 L, Hct 36.5 L, MCV 96.4 H, MCH 30.5, MCHC 31.6 L, RDW 16.3, Plt Count 245, MPV 7.7, Neut % (Auto) 76.1, Lymph % (Auto) 12.6, [place] % (Auto) 9.6 H, Eos % (Auto) 1.1, Baso % (Auto) 0.5, Neut # (Auto) 6.2, Lymph # (Auto) 1.0, [place] # (Auto) 0.8, Eos # (Auto) 0.1, Baso # (Auto) 0.0, D-Dimer 1.18 H, Sodium 143, Potassium 5.1, Chloride 109 H, Carbon Dioxide 30, Anion Gap 9.1, BUN 36 H, Creatinine 2.00 H, Estimated Creat Clear 20, Estimated GFR 32 L, Est GFR ( Amer) 38 L, Glucose 101 H, Calcium 9.1, Total Bilirubin 1.2, AST 41, ALT 40, Alkaline Phosphatase 93, Troponin I 0.01, NT-Pro-B Natriuret Pep 83703 H, Total Protein 7.0, Albumin 3.9, Globulin 3.1, Albumin/Globulin Ratio 1.3 06/14/24 14:35: Troponin I 0.01 06/14/24 17:30: Troponin I < 0.01 06/14/24 : Chlamy pneumoniae PCR Not detected, Adenovirus (PCR) Not detected, B. pertussis DNA (PCR) Not detected, Coronavirus OC43 (PCR) Not detected, Coronavirus HKU1 (PCR) Not detected, Coronavirus 229E (PCR) Not detected, SARS-CoV-2 (PCR) Not detected, Coronavirus NL63 (PCR) Not detected, Human Metapneumovir PCR Not detected, Influenza A (H1) PCR Not detected, Influ A (H1N1/09) PCR Not detected, Influenza A (H3) PCR Not detected, Influenza Type A (PCR) Not detected, Influenza Type B (PCR) Not detected, M. pneumoniae (PCR) Not detected, Parainfluenza 1 (PCR) Not detected, Parainfluenza 2 (PCR) Not detected, Parainfluenza 3 (PCR) Not detected, Parainfluenza 4 (PCR) Not detected, RSV (PCR) Not detected, Entero/Rhino (PCR) Not detected 06/15/24 05:46: WBC 14.2 H D, RBC 3.58 L, Hgb 11.0 L, Hct 34.5 L, MCV 96.4 H, MCH 30.8, MCHC 31.9, RDW 16.5, Plt Count 215, MPV 8.1, Neut % (Auto) 88.3 H, Lymph % (Auto) 3.9 L, [place] % (Auto) 7.4, Eos % (Auto) 0.1, Baso % (Auto) 0.2, Neut # (Auto) 12.5 H, Lymph # (Auto) 0.6 L, [place] # (Auto) 1.1 H, Eos # (Auto) 0.0, Baso # (Auto) 0.0, Total Counted 100, Neutrophils % (Manual) 85 H, Lymphocytes % (Manual) 4 L, Monocytes % (Manual) 10 H, Eosinophils % (Manual) 1, Platelet Estimate Normal, RBC Morphology Normal, Sodium 139, Potassium 4.5, Chloride 106, Carbon Dioxide 32 H, Anion Gap 5.5, BUN 37 H, Creatinine 1.90 H, Estimated Creat Clear 23, Estimated GFR 34 L, Est GFR ( Amer) 41 L, Glucose 88, Calcium 8.7, Magnesium 2.0, Total Bilirubin 1.3, AST 33, ALT 33, Alkaline Phosphatase 78, Total Protein 6.2 L, Albumin 3.3 L D, Globulin 2.9, Albumin/Globulin Ratio 1.1 I & O for Labs for Last 24 Hours: Intake & Output 06/12/24 06/13/24 06/14/24 06/15/24 23:59 23:59 23:59 23:59 Intake Total 120 / 360 480 / 480 Output Total 1950 / 2650 700 / 700 Balance -1830 / -2290 -220 / -220 Weight 142 lb 11.2 oz 132 lb Constitutional: Present severe distress Head: Present normocephalic and atraumatic ENT: Present normal exam, normal oropharynx and mucous membranes moist Neck: Present normal inspection and full ROM Respiratory: Present respiratory distress, crackles and diminished air movement; Absent prolonged expiratory phase or able to speak in complete sentences Cardiac: Present S1/S2, Tachycardia and radial pulses present GI: Present soft and distention; Absent tenderness or guarding Skin: Present intact; Absent cyanosis or jaundice Neuro: Present alert, awake and oriented x 3 Extremities: Present normal inspection; Absent clubbing or cyanosis Psychiatric: Present normal affect and cooperative Meds Home Medications and Allergies Home Medications ?Medication ?Instructions ?Recorded ?Confirmed ?Type ferrous sulfate 325 mg (65 mg 325 mg PO TID 11/28/23 06/14/24 History iron) tablet (FeroSul) multivitamin (Daily Multi-Vitamin 1 tab PO DAILY 11/28/23 06/14/24 History tablet) atorvastatin 40 mg tablet (Lipitor) 40 mg PO HS #30 tabs 12/04/23 06/14/24 Rx lisinopril 20 mg tablet 20 mg PO DAILY 02/12/24 06/14/24 History rivaroxaban 15 mg tablet (Xarelto) 15 mg PO QPMWITHMEAL 02/20/24 06/14/24 History amlodipine 2.5 mg tablet 2.5 mg PO DAILY #30 tabs 04/29/24 06/14/24 Rx furosemide 20 mg tablet 20 mg PO DAILY 06/14/24 06/14/24 History loratadine 10 mg tablet 10 mg PO DAILY 06/14/24 06/14/24 History metoprolol succinate 200 mg 200 mg PO DAILY 06/14/24 06/14/24 History tablet,extended release 24 hr New Prescriptions to Start Prescriptions: Allergies Allergy/AdvReac Type Severity Reaction Status Date / Time aspirin Allergy Other Verified 04/29/24 14:39 Results Laboratory Findings 06/15/24 05:46 06/15/24 05:46 PT/INR, D-dimer D-Dimer 1.18 ug/mL (0.0-0.5) H 06/14/24 11:37 Abnormal lab findings: Abnormal Labs 06/14/24 06/14/24 06/15/24 11:34 11:37 05:46 WBC 14.2 H D RBC 3.79 L 3.58 L Hgb 11.6 L 11.0 L Hct 36.5 L 34.5 L MCV 96.4 H 96.4 H MCHC 31.6 L Neut % (Auto) 88.3 H Lymph % (Auto) 3.9 L [place] % (Auto) 9.6 H Neut # (Auto) 12.5 H Lymph # (Auto) 0.6 L [place] # (Auto) 1.1 H Neutrophils % (Manual) 85 H Lymphocytes % (Manual) 4 L Monocytes % (Manual) 10 H D-Dimer 1.18 H VBG Total CO2 27.3 H Chloride 109 H Carbon Dioxide 32 H BUN 36 H 37 H Creatinine 2.00 H 1.90 H Estimated GFR 32 L 34 L Est GFR ( Amer) 38 L 41 L Glucose 101 H NT-Pro-B Natriuret Pep 75482 H Total Protein 6.2 L Albumin 3.3 L D Assessment and Plan *Assessment and plan (1) Pleural effusion, bilateral: Status: Acute Category: Medical Code(s): J90 - Pleural effusion, not elsewhere classified (2) Acute hypoxic respiratory failure: Status: Acute Category: Medical Code(s): J96.01 - Acute respiratory failure with hypoxia Plan Mr. Shaw is a 89-year-old male presented today with worsening respiratory distress and bilateral lower extremity edema and pulmonary was called for further evaluation and management. He denies any significant smoking history. Not having any respiratory symptoms couple of months ago. Progressively worsening respiratory chest for the last 2 to 3 weeks bilateral worsening lower extremity swelling. Chest x-ray on admission no dense consolidative airspace changes noted. Bilateral pleural effusion right greater than left. Afebrile. Hemodynamically stable. Mild neutrophilic predominant leukocytosis. Comprehensive respiratory viral PCR panel negative. Currently receiving Lasix for possible CHF exacerbation. The possible etiology of current hypoxic respiratory failure likely from CHF exacerbation. The possibility of PE cannot be completely predicted given his significant high oxygen requirements. Currently diuresing. Will clinically follow and further determine the need for CT PE protocol. Plan: Continue high flow nasal oxygen supplementation to maintain O2 saturation goal of 90% and above Status post right-sided thoracentesis. Follow-up with lab work. AlbertooNebs 4 times daily as needed Volume optimization as per primary team No need for antibiotics from pulmonary standpoint. # Thank you for involving pulmonary in this patient care. Will continue to follow.
[2024-06-15] MEDS: FERROUS SULFATE 325MG 325 MG PO ×2 (12:07→21:34)
--- NOTE | 2024-06-15 13:53 | US_ITS ---
FINAL REPORT CLINICAL HISTORY: PLEURAL EFFUSION -- RT THORACENTESIS -- DR LIZ -- 1020ML COMPARISON: None FINDINGS: THORACENTESIS LOCALIZATION BY ULTRASOUND: Localization for thoracentesis to be performed by Dr. Vaughn were obtained by the interventional technologist. 3 spot films were obtained, and used by Dr. Vaughn to perform the thoracentesis. 1020 cc of pleural fluid were withdrawn. Reviewed, Interpreted and Dictated by Watson Chambesr MD Transcribed by Jenniffer Truong Authenticated and [facility]
--- NOTE | 2024-06-15 13:54 | XR_ITS ---
PROCEDURE INFORMATION: Exam: XR Chest Exam date and time: 06/15/2024 4:44 PM Age: 89 years old Clinical indication: Device placement; Other: Post thora TECHNIQUE: Imaging protocol: Radiologic exam of the chest. Views: 1 view. COMPARISON: CR XR CHEST PORTABLE 06/14/2024 11:37 AM FINDINGS: Lungs: Developing left basilar opacification compatible with possible developing effusion associated atelectasis or consolidation. Lung zuluaga otherwise clear. Pleural spaces: Small right pleural effusion with interval improvement post thoracentesis with no evident pneumothorax. Right basilar opacification also improved in the interval. Heart/Mediastinum: Cardiomegaly redemonstrated. Bones/joints: Unremarkable. IMPRESSION: 1. Small right pleural effusion associated opacification that may reflect atelectasis and/or consolidation with some interval improvement post thoracentesis. 2. Developing moderate-sized area of left basilar retrocardiac opacification suggesting small to moderate effusion and associated atelectasis or consolidation. Follow-up advised.
--- NOTE | 2024-06-15 13:57 | CA_ITS ---
FINAL REPORT CLINICAL HISTORY: HYPOXIA FINDINGS: Multiple transverse and longitudinal scans were performed of the femoral popliteal deep venous system, with augmentation and compression maneuvers. Normal phasic flow was noted in the visualized deep venous system. No intraluminal increased echogenicity is noted to suggest thrombus. There is normal compression and augmentation of the venous structures. No abnormal venous collaterals are seen. IMPRESSION: No evidence of deep venous thrombosis of the bilateral lower extremities. Reviewed, Interpreted and Dictated by Watson Chambers MD Transcribed by Sulma Shane Authenticated and [facility]
--- NOTE | 2024-06-15 14:03 | P.PCN_ITS ---
[facility] Procedure Note Date: 06/15/24 Time: 14:03 Procedure Note:: Procedure: Right Thoracentesis Indication for procedure: Pleural Effusion, Hypoxic Respiratory failure A time out was performed, and the chest x-ray was reviewed, the appropriate side was confirmed and marked. My hands were washed immediately prior to the procedure. I wore a surgical cap, mask with protective eyewear, sterile gown, and sterile gloves throughout the procedure. The patient was prepped and draped in a sterile manner using chlorhexidine scrub after the appropriate level was percussed and confirmed by ultrasound. 1% lidocaine was used to anesthetize the skin, ?subcutaneous tissue, superior aspect of the rib periosteum and parietal pleura.? A finder needle was then introduced at the seventh intercoastal space posteriorly?to locate the pleural fluid; blood-tinged fluid was aspirated. A 10-blade scalpel was used to ross the skin at the insertion site. The [id number] needle was then introduced through the skin incision into the pleural space using negative aspiration pressure and the red colorimetric indicator to confirm appropriate positioning of the needle. The thoracentesis catheter was then threaded without difficulty.? 1020 ml of straw-colored?fluid was removed without difficulty. The catheter was then removed. No immediate complications were noted during the procedure. A post-procedure chest X-ray is pending at the time of this note. The fluid will be sent for routine pleural studies, cultures along with cytopathology.? Patient tolerated the procedure well? Estimated blood loss is 2cc.
[2024-06-15 14:31] LABS: Appearance,Body Fld. Bloody; Source, Body Fld. Thoracentesis Fluid; Volume,Body Fld. 1120 mL
[2024-06-15 14:32] LABS: RBC,Body Fluid 28 cells/uL (< 10 X 10^3); TNC,Body Fluid 484 cells/uL (< 1000)
[2024-06-15] MEDS: CEFTRIAXONE SODIUM 1 GM in 0.9 % SODIUM CHLORIDE 50 ML IV (14:51)
[2024-06-15 15:45] LABS: Mononuclear WBCs,Body Fluid 83 %; Polynuclear WBC,Body Fluid 17 %
[2024-06-15 15:58] LABS: Lactate Dehydrogenase 210 U/L (313-618)
[2024-06-15] MEDS: RIVAROXABAN 15MG TABLET 15 MG PO (16:44)
[2024-06-15] MEDS: OXYCODONE 5MG IMMEDIATE RELEASE TABLET 5 MG PO (17:54)
[2024-06-15] MEDS: DOXYCYCLINE HYCL 100 MG TABLET PO (21:34)
[2024-06-15] MEDS: ATORVASTATIN 40MG TABLET 40 MG PO (21:34)
[2024-06-16] VITALS (27 sets, daily range): BP systolic 99–124; BP diastolic 54–77; PULSE 80–121; RESP 11–29; TEMP 36.7–37.4; O2SAT 73–98; BMI 19.3
[2024-06-16] MEDS: OXYCODONE 5MG IMMEDIATE RELEASE TABLET 5 MG PO (02:03)
--- NOTE | 2024-06-16 06:07 | PC.NURSE ---
Alert and oriented. Purewick in place. Complained of pain one time, treated per aug. Vapotherm throughout the night, lung sounds diminished. Call light in reach.
[2024-06-16 07:27] LABS: Chloride 108 mmol/L (98-107); Sodium 136 mmol/L (136-145)
[2024-06-16 07:28] LABS: Potassium 5.2 mmoL/L (3.5-5.1)
[2024-06-16 07:30] LABS: Blood Urea Nitrogen 42 mg/dl (9-20); Creatinine Clearance Estimated 27 mL/min (50-200); Estimated Glomerular Filt Rate 38 ml/min (>60); GFR (African American) 46 ML/MIN (>60)
[2024-06-16 07:31] LABS: Anion Gap 8.2 mEq/L (5-15); Calcium 8.3 mg/dl (8.4-10.2); Carbon Dioxide 25 mmol/L (22.0-30.0); Glucose 85 mg/dl (74-100)
[2024-06-16 07:58] LABS: Basophils # 0.1 K/mm3 (0-0.2); Basophils % 0.5 % (0.1-2.0); Eosinophils % 0.2 % (0.1-12.0); Hematocrit 33.8 % (42.0-52.0); Hemoglobin 10.5 g/dL (14.1-18.0); Lymphocytes # 0.9 K/mm3 (0.7-4.5); Lymphocytes % 8.8 % (10-50); Mean Corpuscular HGB Conc 31.1 g/dL (31.8-35.4); Mean Corpuscular Hemoglobin 30.6 pg (27.0-31.2); Mean Corpuscular Volume 98.4 fl (80-94); Mean Platelet Volume 8.1 fl (7.4-10.4); Monocytes # 1.2 K/mm3 (0.1-1.0); Monocytes % 11.9 % (1.7-9.3); Neutrophils % 78.6 % (37.0-80.0); Platelet Count 173 K/mm3 (142-424); Red Blood Count 3.43 M/mm3 (4.60-6.20); Red Cell Distribution Width 16.2 % (11.5-17.5); White Blood Count 10.2 K/mm3 (4.8-10.8)
--- NOTE | 2024-06-16 08:10 | P.PN_ITS ---
Subjective *Date: 06/16/24 *Time: 09:11 Interval history: Patient states he is feeling fine. He would really like to go home. He denies shortness of breath at this time. He plans to eat his breakfast. He states he eats small amounts frequently. He invites me for breakfast. He denies any pain. He states he did sleep a little last night. Has a pur wick in place. He remains on Vapotherm at 40%. Nursing states that without it his O2 sats drop. He remains in the 90s when on Vapotherm. A.m. labs this morning showed improved white blood cell count of 10,200 hemoglobin is 10.5 hematocrit 33.8. Blood chemistries with a sodium of 136 and potassium of 5.2. BUN is 42 and creatinine is improved to 1.7. Blood cultures are negative thus far. Patient had a right thoracentesis yesterday 06/15/2024 with 1020 mL of straw- colored fluid removed without difficulty. Per Dr. Ramírez. Postprocedure x-ray showed a small right pleural effusion possibly reflecting atelectasis and or consolidation with interval improvement. Also developing a moderate size area of left basilar retrocardiac opacification suggesting small to moderate effusion and associated atelectasis or consolidation. Echocardiogram results completed 06/15/2024: Conclusion Mildly reduced LV systolic function (LVEF 45%). Septal flattening, consistent with elevated right-sided pressures. Moderate RV dilation with severe reduction in RV function. Biatrial dilation. Mild MR, mild TR. Markedly elevated RVSP 50-55 mmHg. Small sized, posterior pericardial effusion is present. The largest pocket measures 0.3 cm in diastole. No echo indications of tamponade. Pleural effusion. When directly compared to the prior study from 11/2023, the reduction in RV function is new. Further evaluation for RV dysfunction is suggested. Medical Exam Vital signs and Labs for Last 24 Hours: Vital Signs Temp Pulse Pulse Resp BP BP Pulse Ox 06/16/24 06:49 06/16/24 06:46 91 L 06/16/24 06:00 112 H 16 111/59 L 92 L 06/16/24 05:00 06/16/24 04:00 105 H 06/16/24 04:00 98.1 F 110 H 15 113/66 94 L 06/16/24 04:00 107 H 06/16/24 03:00 06/16/24 02:00 100 H 15 113/65 96 06/16/24 01:00 06/16/24 00:00 80 06/16/24 00:00 99.4 F 95 H 18 104/54 L 94 L 06/16/24 00:00 104/54 L 06/16/24 00:00 109 H 15 94 L 06/15/24 23:50 94/55 L 06/15/24 23:50 95 H 13 93 L 06/15/24 23:00 92/49 L 06/15/24 23:00 100 H 21 96 06/15/24 23:00 06/15/24 22:00 108 H 121/67 95 06/15/24 21:01 95 H 20 95 06/15/24 21:01 113/64 06/15/24 21:00 06/15/24 21:00 105 H 16 113/64 99 06/15/24 20:00 100 H 06/15/24 20:00 06/15/24 20:00 98.4 F 105 H 16 117/67 96 06/15/24 20:00 98.6 F 119 H 16 117/67 92 L 06/15/24 20:00 109 H 14 91 L 06/15/24 20:00 117/67 06/15/24 19:45 103 H 22 90 L 06/15/24 19:30 107 H 21 94 L 06/15/24 19:15 113 H 27 H 96 06/15/24 19:00 108/71 L 06/15/24 19:00 90 21 93 L 06/15/24 19:00 06/15/24 18:45 93 H 22 92 L 06/15/24 18:30 85 17 97 06/15/24 18:22 110 H 06/15/24 18:15 106 H 29 H 96 06/15/24 18:01 101 H 25 H 96 06/15/24 18:01 103/55 L 06/15/24 18:00 85 23 86 L 06/15/24 18:00 90 22 103/55 L 97 06/15/24 17:45 114 H 17 96 06/15/24 17:30 104 H 12 94 L 06/15/24 17:15 89 20 95 06/15/24 17:00 95 H 19 96 06/15/24 17:00 109/66 L 06/15/24 17:00 06/15/24 16:00 95 06/15/24 16:00 89 24 98/57 L 94 L 06/15/24 15:00 06/15/24 14:00 103 H 20 94/53 L 99 06/15/24 12:45 06/15/24 12:00 80 06/15/24 12:00 86 24 90/55 L 94 L 06/15/24 11:00 06/15/24 10:00 84 24 106/69 L 90 L O2 Del Method O2 Flow Rate FiO2 06/16/24 06:49 Vapotherm 06/16/24 06:46 Vapotherm 20 40 06/16/24 06:00 Vapotherm 20 06/16/24 05:00 Vapotherm 06/16/24 04:00 06/16/24 04:00 Vapotherm 20 06/16/24 04:00 Vapotherm 06/16/24 03:00 Vapotherm 06/16/24 02:00 Vapotherm 20 06/16/24 01:00 Vapotherm 06/16/24 00:00 06/16/24 00:00 Vapotherm 20 06/16/24 00:00 06/16/24 00:00 06/15/24 23:50 06/15/24 23:50 06/15/24 23:00 06/15/24 23:00 06/15/24 23:00 Vapotherm 06/15/24 22:00 Vapotherm 06/15/24 21:01 06/15/24 21:01 06/15/24 21:00 Vapotherm 06/15/24 21:00 Vapotherm 20 06/15/24 20:00 06/15/24 20:00 Vapotherm 06/15/24 20:00 Vapotherm 20 06/15/24 20:00 Vapotherm 20 06/15/24 20:00 06/15/24 20:00 06/15/24 19:45 06/15/24 19:30 06/15/24 19:15 06/15/24 19:00 06/15/24 19:00 06/15/24 19:00 Vapotherm 20 06/15/24 18:45 06/15/24 18:30 06/15/24 18:22 06/15/24 18:15 06/15/24 18:01 06/15/24 18:01 06/15/24 18:00 06/15/24 18:00 Vapotherm 20 40 06/15/24 17:45 06/15/24 17:30 06/15/24 17:15 06/15/24 17:00 06/15/24 17:00 06/15/24 17:00 Vapotherm 20 06/15/24 16:00 Vapotherm 20 40 06/15/24 16:00 Vapotherm 20 40 06/15/24 15:00 Vapotherm 20 06/15/24 14:00 Vapotherm 20 40 06/15/24 12:45 Vapotherm 06/15/24 12:00 06/15/24 12:00 Vapotherm 20 40 06/15/24 11:00 Vapotherm 20 06/15/24 10:00 Vapotherm 20 40 Intake and Output 06/15/24 06/16/24 06/16/24 19:59 03:59 11:59 Intake Total 390 / 390 180 / 570 Output Total 0 / 0 400 / 400 Balance 390 / 390 180 / 570 -400 / 170 Intake: Intake, Oral Amount 340 / 340 180 / 520 Intake, Total IV Amount 50 / 50 Ceftriaxone Sodium 1 gm In 0.9 50 / 50 % Sodium Chloride 50 ml @ 100 mls/hr IV DAILY [facility] Rx#: [id number] Output: Output, Urine Amount 0 / 0 400 / 400 Other: Number of Unmeasured Voids 1 0 Weight 138 lb 3.2 oz Patient Weight 06/16/24 11:59 Weight 138 lb 3.2 oz Laboratory Results - last 24 hr 06/15/24 05:46: Total Counted 100, Neutrophils % (Manual) 85 H, Lymphocytes % (Manual) 4 L, Monocytes % (Manual) 10 H, Eosinophils % (Manual) 1, Platelet Estimate Normal, RBC Morphology Normal, Lactate Dehydrogenase 210 L 06/15/24 12:30: Fluid Source Thoracentesis fluid, Fluid Volume 1120, Fluid Appearance Bloody, Fluid RBC (Auto) 28, Fld Tot Nucleated Cell 484, Fld Polynuclear WBCs % 17, Fld Mononuclear WBCs % 83 06/16/24 06:00: WBC 10.2 D, RBC 3.43 L, Hgb 10.5 L, Hct 33.8 L, MCV 98.4 H, MCH 30.6, MCHC 31.1 L, RDW 16.2, Plt Count 173, MPV 8.1, Neut % (Auto) 78.6, Lymph % (Auto) 8.8 L, [place] % (Auto) 11.9 H, Eos % (Auto) 0.2, Baso % (Auto) 0.5, Neut # (Auto) 8.0 H, Lymph # (Auto) 0.9, [place] # (Auto) 1.2 H, Eos # (Auto) 0.0, Baso # (Auto) 0.1, Sodium 136, Potassium 5.2 H, Chloride 108 H, Carbon Dioxide 25, Anion Gap 8.2, BUN 42 H, Creatinine 1.70 H, Estimated Creat Clear 27, Estimated GFR 38 L, Est GFR ( Amer) 46 L, Glucose 85, Calcium 8.3 L I & O for Labs for Last 24 Hours: Intake & Output 06/13/24 06/14/24 06/15/24 06/16/24 11:59 11:59 11:59 11:59 Intake Total 600 / 600 570 / 570 Output Total 2650 / 2650 400 / 400 Balance -2049 / -2049 170 / 170 Weight 120 lb 132 lb 138 lb 3.2 oz Microbiology Reports for the Last 24 Hours: Microbiology 06/14/24 11:34 Blood Blood Culture - Preliminary NO GROWTH AFTER 24 HOURS 06/14/24 11:34 Blood Blood Culture - Preliminary NO GROWTH AFTER 24 HOURS Constitutional: Present no acute distress Comment:: Sitting up in the bed to eat breakfast. He appears comfortable. He is conversant. Respiratory: Present decreased breath sounds (Posteriorly) and crackles (Posteriorly) Cardiac: Present Irregularly Regular (Monitor showing atrial fibrillation) GI: Present soft and normal bowel sounds; Absent distention, tenderness or guarding Extremities: Present full ROM and edema Comment:: Patient shows me how he can kick and bend his legs. Comment:: Postthoracentesis site with a Band-Aid. No surrounding erythema or edema. Neuro: Present alert, awake and oriented x 3 Assessment and Plan *Assessment and plan (1) Acute hypoxic respiratory failure: Status: Acute Category: Medical Code(s): J96.01 - Acute respiratory failure with hypoxia (2) Edema of both legs: Status: Acute Category: Medical Code(s): R60.0 - Localized edema (3) Decompensated heart failure: Status: Acute Category: Medical Code(s): I50.9 - Heart failure, unspecified (4) Pleural effusion, right: Status: Acute Category: Medical Code(s): J90 - Pleural effusion, not elsewhere classified (5) Pulmonary edema: Status: Acute Category: Medical Code(s): J81.1 - Chronic pulmonary edema (6) Atrial fibrillation with RVR: Status: Acute Category: Medical Code(s): I48.91 - Unspecified atrial fibrillation (7) HBP (high blood pressure): Status: Acute Category: Medical Code(s): I10 - Essential (primary) hypertension (8) Renal insufficiency: Status: Acute Category: Medical Code(s): N28.9 - Disorder of kidney and ureter, unspecified (9) Hypotension: Status: Acute Category: Medical Code(s): I95.9 - Hypotension, unspecified (10) Pleural effusion, bilateral: Status: Acute Category: Medical Code(s): J90 - Pleural effusion, not elsewhere classified (11) Right ventricular dysfunction: Status: Acute Category: Medical Code(s): I51.9 - Heart disease, unspecified Plan Continue current care. Pleural fluid results are pending. Unable to wean from Vapotherm yesterday. Pulmonology to follow; cardiac consultation with right ventricular dysfunction and decreased in left ventricular ejection fraction Dr. Sinclair entry - Saw patient, agree with above note.
[2024-06-16] MEDS: LORATADINE 10MG TABLET 10 MG PO (08:51)
[2024-06-16] MEDS: CEFTRIAXONE SODIUM 1 GM in 0.9 % SODIUM CHLORIDE 50 ML IV (08:51)
[2024-06-16] MEDS: DOXYCYCLINE HYCL 100 MG TABLET PO ×2 (08:52→20:00)
[2024-06-16] MEDS: FERROUS SULFATE 325MG 325 MG PO ×3 (08:52→20:00)
[2024-06-16] MEDS: METOPROLOL TARTRATE 25MG TABLET 12.5 MG PO ×2 (08:52→20:00)
--- NOTE | 2024-06-16 09:54 | P.PN_ITS ---
Subjective *Date: 06/16/24 *Time: 10:58 Interval history: No acute respiratory vents overnight. Patient denies any new respiratory complaints. Pulmonology Exam Inpatient Vital signs and Labs for Last 24 Hours: Temp Pulse Resp BP Pulse Ox O2 Del Method O2 Flow Rate 98.1 F 102 H 14 106/66 L 96 Vapotherm 20 06/16/24 04:00 06/16/24 08:00 06/16/24 08:00 06/16/24 08:00 06/16/24 08:00 06/16/24 06:49 06/16/24 06:46 FiO2 40 06/16/24 06:46 Laboratory Results - last 24 hr 06/15/24 05:46: Lactate Dehydrogenase 210 L 06/15/24 12:30: Fluid Source Thoracentesis fluid, Fluid Volume 1120, Fluid Appearance Bloody, Fluid RBC (Auto) 28, Fld Tot Nucleated Cell 484, Fld Polynuclear WBCs % 17, Fld Mononuclear WBCs % 83 06/16/24 06:00: WBC 10.2 D, RBC 3.43 L, Hgb 10.5 L, Hct 33.8 L, MCV 98.4 H, MCH 30.6, MCHC 31.1 L, RDW 16.2, Plt Count 173, MPV 8.1, Neut % (Auto) 78.6, Lymph % (Auto) 8.8 L, [place] % (Auto) 11.9 H, Eos % (Auto) 0.2, Baso % (Auto) 0.5, Neut # (Auto) 8.0 H, Lymph # (Auto) 0.9, [place] # (Auto) 1.2 H, Eos # (Auto) 0.0, Baso # (Auto) 0.1, Sodium 136, Potassium 5.2 H, Chloride 108 H, Carbon Dioxide 25, Anion Gap 8.2, BUN 42 H, Creatinine 1.70 H, Estimated Creat Clear 27, Estimated GFR 38 L, Est GFR ( Amer) 46 L, Glucose 85, Calcium 8.3 L Temp Pulse Resp BP Pulse Ox O2 Del Method O2 Flow Rate 98.3 F 80 19 110/60 94 L Vapotherm 20 06/15/24 08:00 06/15/24 06:00 06/15/24 06:00 06/15/24 06:00 06/15/24 07:49 06/15/24 08:00 06/15/24 07:49 FiO2 40 06/15/24 07:49 Laboratory Results - last 24 hr 06/14/24 11:34: VBG pH 7.34, VBG pCO2 49.3, VBG pO2 37.3, VBG HCO3 25.8, VBG Total CO2 27.3 H, VBG O2 Saturation 62.9, VBG Base Excess -0.1, VBG Lactic Acid 1.5, SARS-CoV-2 (PCR) Not detected, Influenza A Untype (PCR) Not detected, Influenza Type B (PCR) Not detected 06/14/24 11:37: WBC 8.2, RBC 3.79 L, Hgb 11.6 L, Hct 36.5 L, MCV 96.4 H, MCH 30.5, MCHC 31.6 L, RDW 16.3, Plt Count 245, MPV 7.7, Neut % (Auto) 76.1, Lymph % (Auto) 12.6, [place] % (Auto) 9.6 H, Eos % (Auto) 1.1, Baso % (Auto) 0.5, Neut # (Auto) 6.2, Lymph # (Auto) 1.0, [place] # (Auto) 0.8, Eos # (Auto) 0.1, Baso # (Auto) 0.0, D-Dimer 1.18 H, Sodium 143, Potassium 5.1, Chloride 109 H, Carbon Dioxide 30, Anion Gap 9.1, BUN 36 H, Creatinine 2.00 H, Estimated Creat Clear 20, Estimated GFR 32 L, Est GFR ( Amer) 38 L, Glucose 101 H, Calcium 9.1, Total Bilirubin 1.2, AST 41, ALT 40, Alkaline Phosphatase 93, Troponin I 0.01, NT-Pro-B Natriuret Pep 30384 H, Total Protein 7.0, Albumin 3.9, Globulin 3.1, Albumin/Globulin Ratio 1.3 06/14/24 14:35: Troponin I 0.01 06/14/24 17:30: Troponin I < 0.01 06/14/24 : Chlamy pneumoniae PCR Not detected, Adenovirus (PCR) Not detected, B. pertussis DNA (PCR) Not detected, Coronavirus OC43 (PCR) Not detected, Coronavirus HKU1 (PCR) Not detected, Coronavirus 229E (PCR) Not detected, SARS-CoV-2 (PCR) Not detected, Coronavirus NL63 (PCR) Not detected, Human Metapneumovir PCR Not detected, Influenza A (H1) PCR Not detected, Influ A (H1N1/09) PCR Not detected, Influenza A (H3) PCR Not detected, Influenza Type A (PCR) Not detected, Influenza Type B (PCR) Not detected, M. pneumoniae (PCR) Not detected, Parainfluenza 1 (PCR) Not detected, Parainfluenza 2 (PCR) Not detected, Parainfluenza 3 (PCR) Not detected, Parainfluenza 4 (PCR) Not detected, RSV (PCR) Not detected, Entero/Rhino (PCR) Not detected 06/15/24 05:46: WBC 14.2 H D, RBC 3.58 L, Hgb 11.0 L, Hct 34.5 L, MCV 96.4 H, MCH 30.8, MCHC 31.9, RDW 16.5, Plt Count 215, MPV 8.1, Neut % (Auto) 88.3 H, Lymph % (Auto) 3.9 L, [place] % (Auto) 7.4, Eos % (Auto) 0.1, Baso % (Auto) 0.2, Neut # (Auto) 12.5 H, Lymph # (Auto) 0.6 L, [place] # (Auto) 1.1 H, Eos # (Auto) 0.0, Baso # (Auto) 0.0, Total Counted 100, Neutrophils % (Manual) 85 H, Lymphocytes % (Manual) 4 L, Monocytes % (Manual) 10 H, Eosinophils % (Manual) 1, Platelet Estimate Normal, RBC Morphology Normal, Sodium 139, Potassium 4.5, Chloride 106, Carbon Dioxide 32 H, Anion Gap 5.5, BUN 37 H, Creatinine 1.90 H, Estimated Creat Clear 23, Estimated GFR 34 L, Est GFR ( Amer) 41 L, Glucose 88, Calcium 8.7, Magnesium 2.0, Total Bilirubin 1.3, AST 33, ALT 33, Alkaline Phosphatase 78, Total Protein 6.2 L, Albumin 3.3 L D, Globulin 2.9, Albumin/Globulin Ratio 1.1 I & O for Labs for Last 24 Hours: Intake & Output 06/13/24 06/14/24 06/15/24 06/16/24 23:59 23:59 23:59 23:59 Intake Total 120 / 360 870 / 1050 180 / 180 Output Total 1950 / 2650 700 / 700 400 / 400 Balance -1830 / -2290 170 / 350 -220 / -220 Weight 142 lb 11.2 oz 132 lb 138 lb 3.2 oz Intake & Output 06/12/24 06/13/24 06/14/24 06/15/24 23:59 23:59 23:59 23:59 Intake Total 120 / 360 480 / 480 Output Total 1950 / 2650 700 / 700 Balance -1830 / -2290 -220 / -220 Weight 142 lb 11.2 oz 132 lb Microbiology Reports for the Last 24 Hours: Microbiology 06/14/24 11:34 Blood Blood Culture - Preliminary NO GROWTH AFTER 24 HOURS 06/14/24 11:34 Blood Blood Culture - Preliminary NO GROWTH AFTER 24 HOURS Constitutional: Present severe distress Head: Present normocephalic and atraumatic ENT: Present normal exam, normal oropharynx and mucous membranes moist Neck: Present normal inspection and full ROM Respiratory: Present respiratory distress, crackles, diminished air movement and able to speak in complete sentences Cardiac: Present S1/S2, Tachycardia and radial pulses present GI: Present soft and distention; Absent tenderness or guarding Skin: Present intact; Absent cyanosis or jaundice Neuro: Present alert, awake and oriented x 3 Extremities: Present normal inspection; Absent clubbing or cyanosis Psychiatric: Present normal affect and cooperative Assessment and Plan *Assessment and plan (1) Pleural effusion, bilateral: Status: Acute Category: Medical Code(s): J90 - Pleural effusion, not elsewhere classified (2) Acute hypoxic respiratory failure: Status: Acute Category: Medical Code(s): J96.01 - Acute respiratory failure with hypoxia Plan Mr. Shaw is a 89-year-old male presented today with worsening respiratory distress and bilateral lower extremity edema and pulmonary was called for further evaluation and management. He denies any significant smoking history. Not having any respiratory symptoms couple of months ago. Progressively worsening respiratory chest for the last 2 to 3 weeks bilateral worsening lower extremity swelling. Chest x-ray on admission no dense consolidative airspace changes noted. Bilateral pleural effusion right greater than left. Afebrile. Hemodynamically stable. Mild neutrophilic predominant leukocytosis. Comprehensive respiratory viral PCR panel negative. Currently receiving Lasix for possible CHF exacerbation. The possible etiology of current hypoxic respiratory failure likely from CHF exacerbation. The possibility of PE cannot be completely predicted given his significant high oxygen requirements. Currently diuresing. Will clinically follow and further determine the need for CT PE protocol. Interval update: Status post thoracentesis, pending pleural fluid studies. Improving leukocytosis. Lower EXTR venous Doppler pending. Improving respiratory distress. On high flow nasal cannula 20 L 40% saturating 96%. Weaned to nasal cannula Plan: Wean to regular nasal cannula with O2 saturation goal of 90% and above Status post right-sided thoracentesis. Follow-up with lab work. DuoNebs 4 times daily as needed Volume optimization as per primary team Continue levofloxacin for possible community-acquired pneumonia # Thank you for involving pulmonary in this patient care. Will continue to follow.
--- NOTE | 2024-06-16 13:57 | HMH.PTEV ---
Physical Therapy Evaluation Rehab PT IP Evaluation Start: 06/16/24 10:30 Freq: ONCE Status: Active Protocol: Document 06/16/24 13:54 RICHIE (Rec: 06/16/24 13:56 RICHIE [id number]) Subjective/History History History 89-year-old male with a history of hypertension, mitral valve prolapse, atrial fibrillation, basal cell carcinoma, rectal bleeding, diverticulosis, and chronic kidney disease who presented to [facility] with progressive edema in both bilateral lower extremities making it difficult to walk. He reports he lives alone, has no MADDY the home, and is generally independent with all mobility without AD. Subjective Subjective Currently pt has no c/o, reports he feels better and agrees to mobility assessment. New diagnosis of cancer in past 12 No months? Rehab PT IP Eval Objective Appearance Patient Behavior Appropriate Patient Orientation Person,Place,Time Difficulty following instructions none Speech Pattern Clear Ambulation Patient Able to Ambulate Yes Ambulation Observation IP General Gait Pattern Observation No Deviations/Normal Ambulation Distance (feet) 50 Ambulation Assistive Device None Ambulation Ability Independent Balance Ability to Arise Able, uses arms to help Sitting Balance Steady, safe Standing Balance Narrow stance w/o support Dynamic Sitting Balance Ability Good Dynamic Standing Balance Ability Good Transfers Bed Transfer Ability Independent Chair Transfer Ability Independent Sit to Stand Bed Transfer Ability Independent Sit to Stand Chair Transfer Ability Independent ROM All Extremities PT ROM Status WFL MMT All Extremities PT MMT WFL Rehab PT IP prob,goals,plan Problems Date of Evaluation: 06/16/24 Discharge Plan PT Discharge Plan Pt is currently independent with all mobility and has no inpatient therapy needs at this time. He is appropriate to return home once medically stable for d/c. Eval Complexity Eval Charge Codes 12634 - High Complexity PHYSICIAN CERTIFICATION: I certify the specified therapy services for Paco Shaw V are required, authorized, and reviewed every 30 days.
--- NOTE | 2024-06-16 14:05 | HMH.OTEV ---
OT Inpatient Evaluation Rehab OT IP Evaluation Start: 06/16/24 10:32 Freq: ONCE Status: Active Protocol: Document 06/16/24 13:49 LUCIALYDIA (Rec: 06/16/24 14:03 GOVIND [id number]) Rehab OT IP Assessment Subjective History Mr. Bueno is AN 89-year-old male with a history of hypertension, mitral valve prolapse, atrial fibrillation, basal cell carcinoma, rectal bleeding, diverticulosis, and chronic kidney disease who presented to [facility] with progressive edema in both bilateral lower extremities making it difficult to walk. He states he felt very weak. He states he was slightly short of breath but denied having any chest pain. He denies any cough or other respiratory symptoms. With evaluation in the emergency room white blood cell count was 8200 with a hemoglobin of 11.6 hematocrit 36.5. BUN was noted to be 36 with a creatinine of 2. GFR was 32. PEDIATRIC GENETICIST was 25,900. Chest x-ray showed right lower lobe consolidation infiltrates concerning for pneumonia and a small to moderate right pleural effusion. He was given 80 mg of Lasix IV 2b and heart failure with preserved ejection fraction and volume overload/decompensation. He was then admitted for further evaluation and treatment. This a.m. he states he did not sleep well due to the noise of the oxygen and other noises in the room. He did eat well for breakfast. He states he is not short of breath and does not have a cough. He remains on oxygen at 40% as per Vapotherm. Patient lives alone in [address] [place] home with ramp to enter. Independent with all ADLs and fx'l mobility tasks. Continues to drive local. Completes all housekeeping and cooking tasks independently. Subjective I can get up. Analysis Patient's ability to complete bed mobility, transfers, fx'l mobility and LB drsg. Patient completed all tasks independently. No LOB noted. Patient manevuer throughout environment >50ft independently. Objective Patient Orientation Person,Place,Name Right Upper Extremity Gross ROM WFL Left Upper Extremity Gross ROM WFL Bed Mobility bed mobility - supine/sit Assist Level Independent Transfer Training Sit/Stand Transfer Assist Level Independent Chair Transfer Ability Independent Chair Transfer Technique Sit to/from Ambulatory Lower Body Dressing Ability Independent Rehab OT IP prob,goals,plan Problems Date of Evaluation: 06/16/24 Rehab Potential Rehab Potential Innapropriate for Skilled Therapy Discharge Plan OT Discharge Plan Recommend patient to return home after medical d/c. Patient appears to be at baseline. Patient is not appropriate for OT IP services . Eval Complexity Eval Charge Codes 76432 - Low Complexity PHYSICIAN CERTIFICATION: I certify the specified therapy services for Paco Shaw V are required, authorized, and reviewed every 30 days.
--- NOTE | 2024-06-16 14:27 | EXP.CARD.CON ---
History of Present Illness History of Present Illness Consult date: 06/16/24 Requesting physician: Arturo Sinclair Consult reason: congestive heart failure Chief complaint: SOA History of present illness: 89-year-old white male with history of CAD status post LAD stenting in November of this year. He also has EF of 45% with severe biatrial dilation and chronic rate controlled atrial fibrillation on Xarelto. Recently attempted MANOJ which was abandoned due to patient's neck anatomy. Patient came to the emergency room yesterday with complaints of worsening bilateral lower extremity edema, proBNP 25,000, infiltrates and moderate right effusion noted on chest x-ray. Yesterday morning he underwent thoracentesis of 1 L by pulmonology. Today states he is feeling significantly better. Review of home medications indicates he is not on any GDMT for heart failure. Repeat echo here shows reduced RV function otherwise, no change. [facility] Disclaimer: The information contained in this section may have been updated after the patient was seen, as this information can be updated by other users. Medical History (Updated 06/16/24 @ 14:30 by SADIE Silverman) CAD (coronary artery disease) Pleural effusion, bilateral Adrenal mass Renal mass Anticoagulated Abnormal electrocardiogram [ECG] [EKG] Elevated brain natriuretic peptide (BNP) level Elevated troponin Non-ST elevation NE (NSTEMI) Viral URI with cough Atrial fibrillation with RVR Acute kidney injury superimposed on CKD Nausea, vomiting and diarrhea Bleeding nose UTI (urinary tract infection) Hematuria History of GI bleed Diverticulosis Chronic atrial fibrillation Mitral valve prolapse Peripheral edema Hyperlipidemia Essential hypertension Seborrheic keratosis Allergic to aspirin Chronic Kidney Disease 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 Atrial fibrillation Skin cancer Surgical History History of colonoscopy History of esophagogastroduodenoscopy (EGD) Stented coronary artery History of eyelid surgery Family History Other Coronary artery disease Family history of hypertension Social History Smoking Status: Never smoker alcohol intake: never substance use type: denies use and other current occupational status: retired Travel in the last 8 weeks: None household members: spouse housing: house lives independently: No education level: middle school current occupational exposures/hazards: No caffeine: Yes special kusum needs: No agree to transfusion: No do you feel safe at home: Yes victim of physical abuse: No victim of emotional abuse: No victim of sexual abuse: No would you like helpful sources: No Have you lived/traveled outside [place] in past 30 days?: No Contact w/someone who lives/traveled outside US past 30 days?: No Exposure to someone with infectious disease in past 14 days?: No Do you have a fever (greater than 100.4 F or 38 C)?: No Have you tested positive for COVID-19: No Exposed to someone with COVID-19 in past 14 days?: No Do you have a sore throat?: No Do you have a cough?: No Do you have any weakness?: No Do you have any diarrhea?: No Are you experiencing any unusual bleeding?: No Do you have any muscle aches/pain?: Yes Do you have any abdominal pain?: No Are you experiencing loss of taste or smell?: No Review of Systems Constitutional Constitutional: Denies fatigue and Denies weakness Eyes Eyes: Denies loss of vision ENT Ears, Nose, Mouth, and Throat: Denies hearing loss and Denies vertigo *Cardiovascular Cardiovascular: Denies chest pain, Denies dyspnea and Denies syncope *Respiratory Respiratory: Denies cough and Denies dyspnea *Gastrointestinal Gastrointestinal: Denies change in stool character, Denies nausea and Denies vomiting *Genitourinary Genitourinary: Denies difficulty urinating *Musculoskeletal Musculoskeletal: Denies muscle weakness Integumentary/Breasts Skin/Breast: Denies changing lesions *Neurologic Neurologic: Denies loss of vision, Denies syncope, Denies vertigo and Denies weakness Endocrine Endocrine: Denies fatigue Exam Data for Last 24 hours Vital signs and Labs for Last 24 Hours: Temp Pulse Resp BP Pulse Ox O2 Del Method O2 Flow Rate 98.1 F 98 H 18 106/62 L 93 L Nasal Cannula 2 06/16/24 04:00 06/16/24 12:00 06/16/24 12:00 06/16/24 12:00 06/16/24 12:00 06/16/24 11:05 06/16/24 11:05 FiO2 40 06/16/24 06:46 Laboratory Results - last 24 hr 06/15/24 05:46: Lactate Dehydrogenase 210 L 06/15/24 12:30: Fluid Source Thoracentesis fluid, Fluid Volume 1120, Fluid Appearance Bloody, Fluid RBC (Auto) 28, Fld Tot Nucleated Cell 484, Fld Polynuclear WBCs % 17, Fld Mononuclear WBCs % 83 06/16/24 06:00: WBC 10.2 D, RBC 3.43 L, Hgb 10.5 L, Hct 33.8 L, MCV 98.4 H, MCH 30.6, MCHC 31.1 L, RDW 16.2, Plt Count 173, MPV 8.1, Neut % (Auto) 78.6, Lymph % (Auto) 8.8 L, [place] % (Auto) 11.9 H, Eos % (Auto) 0.2, Baso % (Auto) 0.5, Neut # (Auto) 8.0 H, Lymph # (Auto) 0.9, [place] # (Auto) 1.2 H, Eos # (Auto) 0.0, Baso # (Auto) 0.1, Sodium 136, Potassium 5.2 H, Chloride 108 H, Carbon Dioxide 25, Anion Gap 8.2, BUN 42 H, Creatinine 1.70 H, Estimated Creat Clear 27, Estimated GFR 38 L, Est GFR ( Amer) 46 L, Glucose 85, Calcium 8.3 L I & O for Last 24 hours: Intake & Output 06/13/24 06/14/24 06/15/24 06/16/24 23:59 23:59 23:59 23:59 Intake Total 120 / 360 870 / 1050 180 / 180 Output Total 1950 / 2650 700 / 700 400 / 400 Balance -1830 / -2290 170 / 350 -220 / -220 Weight 142 lb 11.2 oz 132 lb 138 lb 3.2 oz Microbiology Reports for the Last 24 Hours: Microbiology 06/14/24 11:34 Blood Blood Culture - Preliminary NO GROWTH AFTER 48 HOURS 06/14/24 11:34 Blood Blood Culture - Preliminary NO GROWTH AFTER 48 HOURS Constitutional Constitutional: no acute distress and cooperative Comments: Frail in appearance *Routine HEENT Exam Eye: Present PERRL *Routine Respiratory Exam Respiratory: Present CTA bilaterally; Absent accessory muscle use, wheezes or crackles *Routine Cardiovascular Exam Cardiovascular: Present RRR, Normal S1 and Normal S2; Absent murmur, gallop or rubs *Routine Abdominal Exam Abdominal: Present soft; Absent tenderness *Routine Extremities Exam Extremities: Present pulses intact; Absent cyanosis or edema *Routine Skin Exam Skin: Present intact; Absent erythema or wounds *Routine Neurological Exam Neurological: Present alert and oriented X3 Routine Psychiatric Exam Psychiatric: Present cooperative Meds Home Medications and Allergies Home Medications ?Medication ?Instructions ?Recorded ?Confirmed ?Type ferrous sulfate 325 mg (65 mg 325 mg PO TID 11/28/23 06/14/24 History iron) tablet (FeroSul) multivitamin (Daily Multi-Vitamin 1 tab PO DAILY 11/28/23 06/14/24 History tablet) atorvastatin 40 mg tablet (Lipitor) 40 mg PO HS #30 tabs 12/04/23 06/14/24 Rx lisinopril 20 mg tablet 20 mg PO DAILY 02/12/24 06/14/24 History rivaroxaban 15 mg tablet (Xarelto) 15 mg PO QPMWITHMEAL 02/20/24 06/14/24 History amlodipine 2.5 mg tablet 2.5 mg PO DAILY #30 tabs 04/29/24 06/14/24 Rx furosemide 20 mg tablet 20 mg PO DAILY 06/14/24 06/14/24 History loratadine 10 mg tablet 10 mg PO DAILY 06/14/24 06/14/24 History metoprolol succinate 200 mg 200 mg PO DAILY 06/14/24 06/14/24 History tablet,extended release 24 hr New Prescriptions to Start Prescriptions: Allergies Allergy/AdvReac Type Severity Reaction Status Date / Time aspirin Allergy Other Verified 04/29/24 14:39 Assessment and Plan *Assessment and plan (1) 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 with reduced ejection fraction): Status: Acute Category: Medical Code(s): I50.23 - Acute on chronic systolic (congestive) heart failure (2) Atrial fibrillation with RVR: Status: Acute Category: Medical Code(s): I48.91 - Unspecified atrial fibrillation (3) Pleural effusion, right: Status: Acute Category: Medical Code(s): J90 - Pleural effusion, not elsewhere classified (4) CAD (coronary artery disease): Status: Acute Qualifiers: Coronary Disease-Associated Artery/Lesion type: [place] artery [place] vs. transplanted heart: [place] heart Associated angina: without angina Qualified Code(s): I25.10 - Atherosclerotic heart disease of [place] coronary artery without angina pectoris Category: Medical Code(s): I25.10 - Atherosclerotic heart disease of [place] coronary artery without angina pectoris Plan Acute on Chronic HFrEF - known dx with EF 45% severe biatrial dilation and chronic rate controlled a-fb - s/p 1L right thoracentesis - symptoms improving - add Farxiga (BP too soft for Entresto and Aldactone right now) - pt neeeds to ambulate with PT today Chronic A-fib - rate controlled here with occasional PVCs - cont Metoprolol and Xarelto CAD s/p LAD stent 11/2023 - pt on Xarelto only due to hx of GI bleeding - CCS = 0 - repeat ECHO here shows no wall motion changes - no indication for LHC at this time. CV stable, recommend up and ambulating with PT today. Pt lives home along and need to verify stability. He will need addition of Farxiga and a 2 week monitor at discharge and office f/u with us 1-2 weeks. Will continue to follow with you while he's here.
--- NOTE | 2024-06-16 14:53 | SW/DCPLANNER ---
Per PT/OT patient is independent w/ no needs at this time.
[2024-06-16] MEDS: DAPAGLIFLOZIN PROPANEDIOL 10 MG TABLET PO (15:19)
[2024-06-16] MEDS: RIVAROXABAN 15MG TABLET 15 MG PO (17:46)
[2024-06-16] MEDS: ATORVASTATIN 40MG TABLET 40 MG PO (20:00)
[2024-06-17] VITALS (15 sets, daily range): BP systolic 105–138; BP diastolic 56–86; PULSE 75–126; RESP 18–32; TEMP 36.8–37.3; O2SAT 86–96; BMI 19.3
[2024-06-17] MEDS: FERROUS SULFATE 325MG 325 MG PO ×3 (08:22→20:22)
[2024-06-17] MEDS: DAPAGLIFLOZIN PROPANEDIOL 10 MG TABLET PO (08:22)
[2024-06-17] MEDS: DOXYCYCLINE HYCL 100 MG TABLET PO ×2 (08:22→20:22)
[2024-06-17] MEDS: METOPROLOL TARTRATE 25MG TABLET 12.5 MG PO ×2 (08:23→20:22)
[2024-06-17] MEDS: CEFTRIAXONE SODIUM 1 GM in 0.9 % SODIUM CHLORIDE 50 ML IV (08:23)
[2024-06-17] MEDS: LORATADINE 10MG TABLET 10 MG PO (08:23)
--- NOTE | 2024-06-17 08:25 | EXP.ACUTE.PN ---
Subjective *Date: 06/17/24 *Time: 16:46 Interval history: Patient states he is feeling better today and wants to go home. According to his nurse he had been weaned down to 3 L of nasal cannula, but he is on 5 L this morning. He denies any shortness of breath or pain. Medical Exam Vital signs and Labs for Last 24 Hours: Vital Signs Temp Pulse Pulse Resp BP BP Pulse Ox 06/17/24 06:56 06/17/24 06:35 94 L 06/17/24 06:00 94 H 18 133/86 93 L 06/17/24 04:54 06/17/24 04:00 102 H 06/17/24 04:00 98.3 F 112 H 18 128/72 95 06/17/24 04:00 06/17/24 03:00 06/17/24 02:00 120 H 20 119/65 95 06/17/24 01:00 06/17/24 00:00 102 H 06/17/24 00:00 108 H 19 95 06/17/24 00:00 113/65 06/16/24 23:00 96 H 22 88 L 06/16/24 23:00 116/76 06/16/24 23:00 06/16/24 22:00 86 20 86 L 06/16/24 22:00 115/65 06/16/24 22:00 86 20 115/63 92 L 06/16/24 22:00 97 H 22 115/65 91 L 06/16/24 21:00 117/73 06/16/24 21:00 120 H 17 98 06/16/24 21:00 06/16/24 20:00 124/74 06/16/24 20:00 80 18 73 L 06/16/24 20:00 114 H 20 124/74 94 L 06/16/24 20:00 06/16/24 20:00 120 H 06/16/24 20:00 98.8 F 112 H 16 124/74 92 L 06/16/24 19:00 111/64 06/16/24 19:00 110 H 18 93 L 06/16/24 18:56 06/16/24 18:00 115/71 06/16/24 18:00 117 H 19 92 L 06/16/24 17:00 120/74 06/16/24 17:00 118 H 18 93 L 06/16/24 17:00 06/16/24 16:00 90 06/16/24 16:00 06/16/24 16:00 107 H 16 93 L 06/16/24 16:00 115/77 06/16/24 15:00 113/74 06/16/24 15:00 98 H 17 96 06/16/24 15:00 06/16/24 14:11 121 H 22 93 L 06/16/24 14:11 107/57 L 06/16/24 14:00 114 H 20 96 06/16/24 13:00 100/64 L 06/16/24 13:00 106 H 11 L 91 L 06/16/24 13:00 06/16/24 12:00 98 H 18 93 L 06/16/24 12:00 106/62 L 06/16/24 11:05 94 L 06/16/24 11:01 105/62 L 06/16/24 11:01 105 H 17 93 L 06/16/24 11:00 06/16/24 10:00 116/74 06/16/24 10:00 110 H 20 95 06/16/24 09:00 06/16/24 09:00 101 H 17 96 06/16/24 09:00 111/61 O2 Del Method O2 Flow Rate 06/17/24 06:56 Nasal Cannula 3 06/17/24 06:35 Nasal Cannula 4 06/17/24 06:00 Nasal Cannula 3 06/17/24 04:54 Nasal Cannula 3 06/17/24 04:00 06/17/24 04:00 Nasal Cannula 3 06/17/24 04:00 Nasal Cannula 3 06/17/24 03:00 Nasal Cannula 3 06/17/24 02:00 Nasal Cannula 3 06/17/24 01:00 Nasal Cannula 3 06/17/24 00:00 06/17/24 00:00 06/17/24 00:00 06/16/24 23:00 06/16/24 23:00 06/16/24 23:00 Nasal Cannula 3 06/16/24 22:00 06/16/24 22:00 06/16/24 22:00 Nasal Cannula 2 06/16/24 22:00 Nasal Cannula 2 06/16/24 21:00 06/16/24 21:00 06/16/24 21:00 Nasal Cannula 2 06/16/24 20:00 06/16/24 20:00 06/16/24 20:00 Nasal Cannula 2 06/16/24 20:00 Nasal Cannula 2 06/16/24 20:00 06/16/24 20:00 Nasal Cannula 2 06/16/24 19:00 06/16/24 19:00 06/16/24 18:56 Nasal Cannula 2 06/16/24 18:00 06/16/24 18:00 06/16/24 17:00 06/16/24 17:00 06/16/24 17:00 Nasal Cannula 2 06/16/24 16:00 06/16/24 16:00 Nasal Cannula 2 06/16/24 16:00 06/16/24 16:00 06/16/24 15:00 06/16/24 15:00 06/16/24 15:00 Nasal Cannula 2 06/16/24 14:11 06/16/24 14:11 06/16/24 14:00 06/16/24 13:00 06/16/24 13:00 06/16/24 13:00 Nasal Cannula 2 06/16/24 12:00 06/16/24 12:00 06/16/24 11:05 Nasal Cannula 2 06/16/24 11:01 06/16/24 11:01 06/16/24 11:00 Nasal Cannula 2 06/16/24 10:00 06/16/24 10:00 06/16/24 09:00 Vapotherm 06/16/24 09:00 06/16/24 09:00 Intake and Output 06/16/24 06/17/24 06/17/24 19:59 03:59 11:59 Intake Total 720 / 720 Output Total 450 / 1450 450 / 1450 550 / 1450 Balance 270 / -730 -450 / -730 -550 / -730 Intake: Intake, Oral Amount 720 / 720 Output: Output, Urine Amount 450 / 1450 450 / 1450 550 / 1450 Other: Number of Unmeasured Voids 1 0 0 Weight 138 lb 5.794 oz Patient Weight 06/17/24 11:59 Weight 138 lb 5.794 oz I & O for Labs for Last 24 Hours: Intake & Output 06/14/24 06/15/24 06/16/24 06/17/24 11:59 11:59 11:59 11:59 Intake Total 600 / 600 930 / 930 720 / 720 Output Total 2650 / 2650 400 / 400 1450 / 1450 Balance -0 / -2050 530 / 530 -730 / -730 Weight 120 lb 132 lb 138 lb 3.2 oz 138 lb 5.794 oz Microbiology Reports for the Last 24 Hours: Microbiology 06/14/24 11:34 Blood Blood Culture - Preliminary NO GROWTH AFTER 48 HOURS 06/14/24 11:34 Blood Blood Culture - Preliminary NO GROWTH AFTER 48 HOURS Constitutional: Present no acute distress Respiratory: Present decreased breath sounds (Posteriorly) and crackles (Posteriorly) Cardiac: Present Irregularly Regular (Monitor showing atrial fibrillation) GI: Present soft and normal bowel sounds; Absent distention, tenderness or guarding Extremities: Present full ROM and edema Comment:: Patient shows me how he can kick and bend his legs. Skin: Present intact Neuro: Present alert, awake and oriented x 3 Assessment and Plan *Assessment and plan (1) Acute hypoxic respiratory failure: Status: Acute Category: Medical Code(s): J96.01 - Acute respiratory failure with hypoxia (2) Edema of both legs: Status: Acute Category: Medical Code(s): R60.0 - Localized edema (3) Decompensated heart failure: Status: Acute Category: Medical Code(s): I50.9 - Heart failure, unspecified (4) Pleural effusion, right: Status: Acute Category: Medical Code(s): J90 - Pleural effusion, not elsewhere classified (5) Pulmonary edema: Status: Acute Category: Medical Code(s): J81.1 - Chronic pulmonary edema (6) Atrial fibrillation with RVR: Status: Acute Category: Medical Code(s): I48.91 - Unspecified atrial fibrillation (7) HBP (high blood pressure): Status: Acute Category: Medical Code(s): I10 - Essential (primary) hypertension (8) Renal insufficiency: Status: Acute Category: Medical Code(s): N28.9 - Disorder of kidney and ureter, unspecified (9) Hypotension: Status: Acute Category: Medical Code(s): I95.9 - Hypotension, unspecified (10) Pleural effusion, bilateral: Status: Acute Category: Medical Code(s): J90 - Pleural effusion, not elsewhere classified (11) Right ventricular dysfunction: Status: Acute Category: Medical Code(s): I51.9 - Heart disease, unspecified Plan Pulmonology wanted him weaned to nasal cannula and wanted to continue DuoNebs 4 times daily. He was also seen by cardiology and they wanted to add Farxiga and have a 2 week monitor placed at discharge. Will attempt to wean oxygen today. Dr. Sinclair entry - Saw patient twice today. He has improved, transferred out of step down, weaning supplemental oxygen down now.
--- NOTE | 2024-06-17 09:48 | EXP.PULM.PN ---
Subjective *Date: 06/17/24 *Time: 11:54 Interval history: No acute respiratory events overnight. Patient admits continued improvement in his respiratory symptoms. Pulmonology Exam Inpatient Vital signs and Labs for Last 24 Hours: Temp Pulse Resp BP Pulse Ox O2 Del Method O2 Flow Rate 98.3 F 119 H 20 130/56 L 96 Nasal Cannula 3 06/17/24 04:00 06/17/24 08:00 06/17/24 08:00 06/17/24 08:00 06/17/24 08:00 06/17/24 06:56 06/17/24 06:56 FiO2 40 06/16/24 06:46 Temp Pulse Resp BP Pulse Ox O2 Del Method O2 Flow Rate 98.3 F 80 19 110/60 94 L Vapotherm 20 06/15/24 08:00 06/15/24 06:00 06/15/24 06:00 06/15/24 06:00 06/15/24 07:49 06/15/24 08:00 06/15/24 07:49 FiO2 40 06/15/24 07:49 Laboratory Results - last 24 hr 06/14/24 11:34: VBG pH 7.34, VBG pCO2 49.3, VBG pO2 37.3, VBG HCO3 25.8, VBG Total CO2 27.3 H, VBG O2 Saturation 62.9, VBG Base Excess -0.1, VBG Lactic Acid 1.5, SARS-CoV-2 (PCR) Not detected, Influenza A Untype (PCR) Not detected, Influenza Type B (PCR) Not detected 06/14/24 11:37: WBC 8.2, RBC 3.79 L, Hgb 11.6 L, Hct 36.5 L, MCV 96.4 H, MCH 30.5, MCHC 31.6 L, RDW 16.3, Plt Count 245, MPV 7.7, Neut % (Auto) 76.1, Lymph % (Auto) 12.6, [place] % (Auto) 9.6 H, Eos % (Auto) 1.1, Baso % (Auto) 0.5, Neut # (Auto) 6.2, Lymph # (Auto) 1.0, [place] # (Auto) 0.8, Eos # (Auto) 0.1, Baso # (Auto) 0.0, D-Dimer 1.18 H, Sodium 143, Potassium 5.1, Chloride 109 H, Carbon Dioxide 30, Anion Gap 9.1, BUN 36 H, Creatinine 2.00 H, Estimated Creat Clear 20, Estimated GFR 32 L, Est GFR ( Amer) 38 L, Glucose 101 H, Calcium 9.1, Total Bilirubin 1.2, AST 41, ALT 40, Alkaline Phosphatase 93, Troponin I 0.01, NT-Pro-B Natriuret Pep 06545 H, Total Protein 7.0, Albumin 3.9, Globulin 3.1, Albumin/Globulin Ratio 1.3 06/14/24 14:35: Troponin I 0.01 06/14/24 17:30: Troponin I < 0.01 06/14/24 : Chlamy pneumoniae PCR Not detected, Adenovirus (PCR) Not detected, B. pertussis DNA (PCR) Not detected, Coronavirus OC43 (PCR) Not detected, Coronavirus HKU1 (PCR) Not detected, Coronavirus 229E (PCR) Not detected, SARS-CoV-2 (PCR) Not detected, Coronavirus NL63 (PCR) Not detected, Human Metapneumovir PCR Not detected, Influenza A (H1) PCR Not detected, Influ A (H1N1/09) PCR Not detected, Influenza A (H3) PCR Not detected, Influenza Type A (PCR) Not detected, Influenza Type B (PCR) Not detected, M. pneumoniae (PCR) Not detected, Parainfluenza 1 (PCR) Not detected, Parainfluenza 2 (PCR) Not detected, Parainfluenza 3 (PCR) Not detected, Parainfluenza 4 (PCR) Not detected, RSV (PCR) Not detected, Entero/Rhino (PCR) Not detected 06/15/24 05:46: WBC 14.2 H D, RBC 3.58 L, Hgb 11.0 L, Hct 34.5 L, MCV 96.4 H, MCH 30.8, MCHC 31.9, RDW 16.5, Plt Count 215, MPV 8.1, Neut % (Auto) 88.3 H, Lymph % (Auto) 3.9 L, [place] % (Auto) 7.4, Eos % (Auto) 0.1, Baso % (Auto) 0.2, Neut # (Auto) 12.5 H, Lymph # (Auto) 0.6 L, [place] # (Auto) 1.1 H, Eos # (Auto) 0.0, Baso # (Auto) 0.0, Total Counted 100, Neutrophils % (Manual) 85 H, Lymphocytes % (Manual) 4 L, Monocytes % (Manual) 10 H, Eosinophils % (Manual) 1, Platelet Estimate Normal, RBC Morphology Normal, Sodium 139, Potassium 4.5, Chloride 106, Carbon Dioxide 32 H, Anion Gap 5.5, BUN 37 H, Creatinine 1.90 H, Estimated Creat Clear 23, Estimated GFR 34 L, Est GFR ( Amer) 41 L, Glucose 88, Calcium 8.7, Magnesium 2.0, Total Bilirubin 1.3, AST 33, ALT 33, Alkaline Phosphatase 78, Total Protein 6.2 L, Albumin 3.3 L D, Globulin 2.9, Albumin/Globulin Ratio 1.1 I & O for Labs for Last 24 Hours: Intake & Output 06/14/24 06/15/24 06/16/24 06/17/24 23:59 23:59 23:59 23:59 Intake Total 120 / 360 870 / 1050 1260 / 1260 360 / 360 Output Total 1950 / 2650 700 / 700 1300 / 1300 550 / 550 Balance -1830 / -2290 170 / 350 -40 / -40 -190 / -190 Weight 142 lb 11.2 oz 132 lb 138 lb 3.2 oz 138 lb 5.794 oz Intake & Output 06/12/24 06/13/24 06/14/24 06/15/24 23:59 23:59 23:59 23:59 Intake Total 120 / 360 480 / 480 Output Total 1950 / 2650 700 / 700 Balance -1830 / -2290 -220 / -220 Weight 142 lb 11.2 oz 132 lb Microbiology Reports for the Last 24 Hours: Microbiology 06/14/24 11:34 Blood Blood Culture - Preliminary NO GROWTH AFTER 48 HOURS 06/14/24 11:34 Blood Blood Culture - Preliminary NO GROWTH AFTER 48 HOURS Constitutional: Present severe distress Head: Present normocephalic and atraumatic ENT: Present normal exam, normal oropharynx and mucous membranes moist Neck: Present normal inspection and full ROM Respiratory: Present respiratory distress, crackles, diminished air movement and able to speak in complete sentences Cardiac: Present S1/S2, Tachycardia and radial pulses present GI: Present soft and distention; Absent tenderness or guarding Skin: Present intact; Absent cyanosis or jaundice Neuro: Present alert, awake and oriented x 3 Extremities: Present normal inspection; Absent clubbing or cyanosis Psychiatric: Present normal affect and cooperative Assessment and Plan *Assessment and plan (1) Pleural effusion, bilateral: Status: Acute Category: Medical Code(s): J90 - Pleural effusion, not elsewhere classified (2) Acute hypoxic respiratory failure: Status: Acute Category: Medical Code(s): J96.01 - Acute respiratory failure with hypoxia Plan Mr. Shaw is a 89-year-old male presented today with worsening respiratory distress and bilateral lower extremity edema and pulmonary was called for further evaluation and management. He denies any significant smoking history. Not having any respiratory symptoms couple of months ago. Progressively worsening respiratory chest for the last 2 to 3 weeks bilateral worsening lower extremity swelling. Chest x-ray on admission no dense consolidative airspace changes noted. Bilateral pleural effusion right greater than left. Afebrile. Hemodynamically stable. Mild neutrophilic predominant leukocytosis. Comprehensive respiratory viral PCR panel negative. Currently receiving Lasix for possible CHF exacerbation. Improving concerning creatinine status post diuresis and thoracentesis. Lower EXTR venous Doppler negative for DVT. Interval update: No acute respiratory vents overnight. Weaned to nasal cannula from high flow yesterday. Tolerating well. Saturating 96% on 3 L this morning, weaned to 1 L. Pleural fluid studies likely transudative effusion. No cultures so far. Plan: Continue nasal oxygen supplementation to maintain O2 saturation goal of 90% and above, weaned to 1 L this morning. Continue to wean as tolerated. Status post right-sided thoracentesis. Follow-up with lab work. DuoNebs 4 times daily as needed Continue ceftriaxone azithromycin to complete a total of 5-day course. Antibiotics can be weaned to cefdinir upon discharge. # Thank you for involving pulmonary in this patient care. Will continue to follow.
[2024-06-17 11:40] LABS: Albumin, Body Fluid 1.3 g/dL (Not Estab.); Glucose, Body Fluid 126 mg/dL (.); LD, Body Fluid 120 IU/L (.); Protein, Body Fluid 1.9 g/dL (.)
--- NOTE | 2024-06-17 12:47 | EXP.CARD.PN ---
Subjective Subjective Date: 06/17/24 Time: 09:30 Interval history: No events overnight. Remains in A-fib with PVCs. Breathing better, states he would like to go home. Exam Data for Last 24 hours Vital signs and Labs for Last 24 Hours: Temp Pulse Resp BP Pulse Ox O2 Del Method O2 Flow Rate 98.3 F 98 H 25 H 121/73 93 L Nasal Cannula 1 06/17/24 04:00 06/17/24 12:00 06/17/24 10:00 06/17/24 12:00 06/17/24 12:00 06/17/24 11:00 06/17/24 11:00 FiO2 40 06/16/24 06:46 Laboratory Results - last 24 hr 06/15/24 12:30: Fluid Glucose 126, Fluid Total Protein 1.9, Fluid Albumin 1.3, Fluid LDH 120 I & O for Last 24 hours: Intake & Output 06/14/24 06/15/24 06/16/24 06/17/24 23:59 23:59 23:59 23:59 Intake Total 120 / 360 870 / 1050 1260 / 1260 440 / 440 Output Total 1950 / 2650 700 / 700 1300 / 1300 550 / 550 Balance -1830 / -2290 170 / 350 -40 / -40 -110 / -110 Weight 142 lb 11.2 oz 132 lb 138 lb 3.2 oz 138 lb 5.794 oz Microbiology Reports for the Last 24 Hours: Microbiology 06/14/24 11:34 Blood Blood Culture - Preliminary NO GROWTH AFTER 48 HOURS 06/14/24 11:34 Blood Blood Culture - Preliminary NO GROWTH AFTER 48 HOURS Constitutional Constitutional: no acute distress and cooperative *Routine HEENT Exam Eye: Present PERRL *Routine Respiratory Exam Respiratory: Present CTA bilaterally; Absent accessory muscle use, wheezes or crackles *Routine Cardiovascular Exam Cardiovascular: Present RRR, Normal S1 and Normal S2; Absent murmur, gallop or rubs *Routine Abdominal Exam Abdominal: Present soft; Absent tenderness *Routine Extremities Exam Extremities: Present pulses intact; Absent cyanosis or edema *Routine Skin Exam Skin: Present intact; Absent erythema or wounds *Routine Neurological Exam Neurological: Present alert and oriented X3 Routine Psychiatric Exam Psychiatric: Present cooperative Progress Note: A&P Assessment and plan (1) Pleural effusion, bilateral: Status: Acute (2) Acute hypoxic respiratory failure: Status: Acute (3) 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 with reduced ejection fraction): Status: Acute Assessment and Plan Assessment and Plan for All Diagnoses:: Acute on Chronic HFrEF - known dx with EF 45% severe biatrial dilation and chronic rate controlled a-fb - s/p 1L right thoracentesis - symptoms improving - add Farxiga (BP too soft for Entresto and Aldactone right now) - pt neeeds to ambulate with PT today Chronic A-fib - rate controlled here with occasional PVCs - cont Metoprolol and Xarelto * DC home with 2 week monitor CAD s/p LAD stent 11/2023 - pt on Xarelto only due to hx of GI bleeding - CCS = 0 - repeat ECHO here shows no wall motion changes - no indication for LHC at this time. *CV stable with plans as outlined above. Will sign off. Please advise if further CV concerns this admission, otherwise pt can f/u in our office 1-2 weeks post discharge.
[2024-06-17] MEDS: RIVAROXABAN 15MG TABLET 15 MG PO (18:08)
[2024-06-17] MEDS: ATORVASTATIN 40MG TABLET 40 MG PO (20:22)
[2024-06-18] VITALS: BP 127/75; PULSE 118; RESP 16; TEMP 36.6; O2SAT 92
[2024-06-18 04:00] VITALS: BP 116/63; PULSE 88; RESP 16; TEMP 36.8; O2SAT 94; BMI 18.8
--- NOTE | 2024-06-18 05:13 | PC.NURSE ---
Alert and oriented. Remained on 2L NC throughout the night, if NC came off, pt would drop quickly to 80s, after reapplying NC, patient would recover to 90s. Patient wanted to stand up, patient was assisted to standing position, tolerated well. Lung sounds diminished. No complaints from patient. Call light in reach.
--- NOTE | 2024-06-18 06:37 | PC.NURSE ---
Attempted to wean O2 to 1L NC, but patient desat to 86%, bumped back up to 2L NC, O2 sat 92%.
[2024-06-18 07:13] LABS: Chloride 108 mmol/L (98-107); Potassium 4.6 mmoL/L (3.5-5.1); Sodium 139 mmol/L (136-145)
[2024-06-18 07:16] LABS: Anion Gap 2.6 mEq/L (5-15); Blood Urea Nitrogen 33 mg/dl (9-20); Calcium 8.5 mg/dl (8.4-10.2); Carbon Dioxide 33 mmol/L (22.0-30.0); Creatinine Clearance Estimated 28 mL/min (50-200); Estimated Glomerular Filt Rate 41 ml/min (>60); GFR (African American) 50 ML/MIN (>60); Glucose 101 mg/dl (74-100)
[2024-06-18 07:30] VITALS: BP 133/73; PULSE 107; RESP 18; TEMP 36.8; O2SAT 89
[2024-06-18 08:06] LABS: Hematocrit 32.1 % (42.0-52.0); Hemoglobin 9.6 g/dL (14.1-18.0); Mean Corpuscular Hemoglobin 29.4 pg (27.0-31.2); Mean Corpuscular Volume 98.2 fl (80-94); Red Blood Count 3.27 M/mm3 (4.60-6.20); White Blood Count 7.9 K/mm3 (4.8-10.8)
--- NOTE | 2024-06-18 08:08 | EXP.ACUTE.PN ---
Subjective *Date: 06/18/24 *Time: 08:49 Interval history: Patient is feeling well today. His only complaint is of some constipation and a cough. He denies any pain. Slept well last night. Ate most of his breakfast. Medical Exam Vital signs and Labs for Last 24 Hours: Vital Signs Temp Pulse Pulse Resp BP BP Pulse Ox 06/18/24 07:30 98.2 F 107 H 18 133/73 89 L 06/18/24 06:38 06/18/24 05:00 06/18/24 04:00 98.3 F 88 16 116/63 94 L 06/18/24 03:00 06/18/24 00:57 06/18/24 00:00 97.8 F 118 H 16 127/75 92 L 06/17/24 23:00 06/17/24 20:45 06/17/24 19:48 99.1 F 104 H 18 121/62 92 L 06/17/24 19:45 06/17/24 18:25 06/17/24 17:00 06/17/24 16:00 98.6 F 115 H 18 120/71 96 06/17/24 15:00 06/17/24 14:02 86 L 06/17/24 14:00 112 H 130/77 88 L 06/17/24 13:00 06/17/24 12:00 121/73 06/17/24 12:00 98 H 93 L 06/17/24 12:00 102 H 06/17/24 11:00 105/72 L 06/17/24 11:00 75 92 L 06/17/24 11:00 06/17/24 10:00 95 H 25 H 96 06/17/24 10:00 112/63 06/17/24 09:00 06/17/24 09:00 118/75 06/17/24 09:00 86 32 H 95 O2 Del Method O2 Flow Rate 06/18/24 07:30 Nasal Cannula 06/18/24 06:38 Nasal Cannula 2 06/18/24 05:00 Nasal Cannula 2 06/18/24 04:00 Nasal Cannula 2 06/18/24 03:00 Nasal Cannula 2 06/18/24 00:57 Nasal Cannula 2 06/18/24 00:00 Nasal Cannula 2 06/17/24 23:00 Nasal Cannula 2 06/17/24 20:45 Nasal Cannula 2 06/17/24 19:48 Nasal Cannula 2 06/17/24 19:45 Nasal Cannula 2 06/17/24 18:25 Nasal Cannula 1 06/17/24 17:00 Nasal Cannula 1 06/17/24 16:00 Nasal Cannula 2 06/17/24 15:00 Nasal Cannula 1 06/17/24 14:02 Room Air 06/17/24 14:00 06/17/24 13:00 Nasal Cannula 1 06/17/24 12:00 06/17/24 12:00 06/17/24 12:00 06/17/24 11:00 06/17/24 11:00 06/17/24 11:00 Nasal Cannula 1 06/17/24 10:00 06/17/24 10:00 06/17/24 09:00 Nasal Cannula 1 06/17/24 09:00 06/17/24 09:00 Intake and Output 06/17/24 06/18/24 06/18/24 19:59 03:59 11:59 Intake Total 240 / 420 180 / 420 Output Total 0 / 550 550 / 550 Balance 240 / -130 -370 / -130 Intake: Intake, Oral Amount 240 / 420 180 / 420 Output: Output, Urine Amount 0 / 550 550 / 550 Other: Number of Unmeasured Voids 1 0 Weight 135 lb 1.6 oz Patient Weight 06/18/24 11:59 Weight 135 lb 1.6 oz Laboratory Results - last 24 hr 06/15/24 12:30: Fluid Glucose 126, Fluid Total Protein 1.9, Fluid Albumin 1.3, Fluid LDH 120 06/18/24 06:33: Sodium 139, Potassium 4.6, Chloride 108 H, Carbon Dioxide 33 H, Anion Gap 2.6 L, BUN 33 H, Creatinine 1.60 H, Estimated Creat Clear 28, Estimated GFR 41 L, Est GFR ( Amer) 50 L, Glucose 101 H, Calcium 8.5 I & O for Labs for Last 24 Hours: Intake & Output 06/15/24 06/16/24 06/17/24 06/18/24 11:59 11:59 11:59 11:59 Intake Total 600 / 600 930 / 930 1160 / 1160 420 / 420 Output Total 2650 / 2650 400 / 400 1450 / 1450 550 / 550 Balance -2049 / -2050 530 / 530 -290 / -290 -130 / -130 Weight 132 lb 138 lb 3.2 oz 138 lb 5.794 oz 135 lb 1.6 oz Constitutional: Present no acute distress Respiratory: Present decreased breath sounds (Posteriorly) Cardiac: Present Irregularly Regular (Monitor showing atrial fibrillation) GI: Present soft and normal bowel sounds; Absent distention, tenderness or guarding Extremities: Present full ROM and edema Comment:: Patient shows me how he can kick and bend his legs. Skin: Present intact Neuro: Present alert, awake and oriented x 3 Assessment and Plan *Assessment and plan (1) Acute hypoxic respiratory failure: Status: Acute Category: Medical Code(s): J96.01 - Acute respiratory failure with hypoxia (2) Edema of both legs: Status: Acute Category: Medical Code(s): R60.0 - Localized edema (3) Decompensated heart failure: Status: Acute Category: Medical Code(s): I50.9 - Heart failure, unspecified (4) Pleural effusion, right: Status: Acute Category: Medical Code(s): J90 - Pleural effusion, not elsewhere classified (5) Pulmonary edema: Status: Acute Category: Medical Code(s): J81.1 - Chronic pulmonary edema (6) Atrial fibrillation with RVR: Status: Acute Category: Medical Code(s): I48.91 - Unspecified atrial fibrillation (7) HBP (high blood pressure): Status: Acute Category: Medical Code(s): I10 - Essential (primary) hypertension (8) Renal insufficiency: Status: Acute Category: Medical Code(s): N28.9 - Disorder of kidney and ureter, unspecified (9) Hypotension: Status: Acute Category: Medical Code(s): I95.9 - Hypotension, unspecified (10) Pleural effusion, bilateral: Status: Acute Category: Medical Code(s): J90 - Pleural effusion, not elsewhere classified (11) Right ventricular dysfunction: Status: Acute Category: Medical Code(s): I51.9 - Heart disease, unspecified Plan Has been weaned from 5L to 2L. Will attempt to wean oxygen today. Possible discharge soon. Dr. Sinclair entry - Saw patient, agree with above note.
[2024-06-18 08:12] LABS: Mean Corpuscular HGB Conc 29.9 g/dL (31.8-35.4); Red Cell Distribution Width 15.9 % (11.5-17.5)
[2024-06-18 08:13] LABS: Basophils % 0.3 % (0.1-2.0); Eosinophils # 0.1 K/mm3 (0.0-0.4); Eosinophils % 1.5 % (0.1-12.0); Lymphocytes # 0.6 K/mm3 (0.7-4.5); Lymphocytes % 7.5 % (10-50); Mean Platelet Volume 9.6 fl (7.4-10.4); Monocytes # 1.1 K/mm3 (0.1-1.0); Monocytes % 13.3 % (1.7-9.3); Neutrophils # 6.1 K/mm3 (1.8-7.8); Platelet Count 210 K/mm3 (142-424)
--- NOTE | 2024-06-18 08:58 | P.PN_ITS ---
Subjective *Date: 06/18/24 *Time: 08:58 Medical Exam Vital signs and Labs for Last 24 Hours: Vital Signs Temp Pulse Pulse Resp BP BP Pulse Ox 06/18/24 07:30 98.2 F 107 H 18 133/73 89 L 06/18/24 06:38 06/18/24 05:00 06/18/24 04:00 98.3 F 88 16 116/63 94 L 06/18/24 03:00 06/18/24 00:57 06/18/24 00:00 97.8 F 118 H 16 127/75 92 L 06/17/24 23:00 06/17/24 20:45 06/17/24 19:48 99.1 F 104 H 18 121/62 92 L 06/17/24 19:45 06/17/24 18:25 06/17/24 17:00 06/17/24 16:00 98.6 F 115 H 18 120/71 96 06/17/24 15:00 06/17/24 14:02 86 L 06/17/24 14:00 112 H 130/77 88 L 06/17/24 13:00 06/17/24 12:00 121/73 06/17/24 12:00 98 H 93 L 06/17/24 12:00 102 H 06/17/24 11:00 105/72 L 06/17/24 11:00 75 92 L 06/17/24 11:00 06/17/24 10:00 95 H 25 H 96 06/17/24 10:00 112/63 06/17/24 09:00 06/17/24 09:00 118/75 06/17/24 09:00 86 32 H 95 O2 Del Method O2 Flow Rate 06/18/24 07:30 Nasal Cannula 06/18/24 06:38 Nasal Cannula 2 06/18/24 05:00 Nasal Cannula 2 06/18/24 04:00 Nasal Cannula 2 06/18/24 03:00 Nasal Cannula 2 06/18/24 00:57 Nasal Cannula 2 06/18/24 00:00 Nasal Cannula 2 06/17/24 23:00 Nasal Cannula 2 06/17/24 20:45 Nasal Cannula 2 06/17/24 19:48 Nasal Cannula 2 06/17/24 19:45 Nasal Cannula 2 06/17/24 18:25 Nasal Cannula 1 06/17/24 17:00 Nasal Cannula 1 06/17/24 16:00 Nasal Cannula 2 06/17/24 15:00 Nasal Cannula 1 06/17/24 14:02 Room Air 06/17/24 14:00 06/17/24 13:00 Nasal Cannula 1 06/17/24 12:00 06/17/24 12:00 06/17/24 12:00 06/17/24 11:00 06/17/24 11:00 06/17/24 11:00 Nasal Cannula 1 06/17/24 10:00 06/17/24 10:00 06/17/24 09:00 Nasal Cannula 1 06/17/24 09:00 06/17/24 09:00 Intake and Output 06/17/24 06/18/24 06/18/24 23:59 07:59 15:59 Intake Total 420 / 860 Output Total 0 / 550 550 / 550 Balance 420 / 310 -550 / -550 Intake: Intake, Oral Amount 420 / 780 Output: Output, Urine Amount 0 / 550 550 / 550 Other: Number of Unmeasured Voids 1 0 Weight 61.28 kg Patient Weight 06/18/24 23:59 Weight 61.28 kg Laboratory Results - last 24 hr 06/15/24 12:30: Fluid Glucose 126, Fluid Total Protein 1.9, Fluid Albumin 1.3, Fluid LDH 120 06/18/24 06:33: WBC 7.9, RBC 3.27 L, Hgb 9.6 L, Hct 32.1 L, MCV 98.2 H, MCH 29.4, MCHC 29.9 L, RDW 15.9, Plt Count 210, MPV 9.6, Neut % (Auto) 77.0, Lymph % (Auto) 7.5 L, [place] % (Auto) 13.3 H, Eos % (Auto) 1.5, Baso % (Auto) 0.3, Neut # (Auto) 6.1, Lymph # (Auto) 0.6 L, [place] # (Auto) 1.1 H, Eos # (Auto) 0.1, Baso # (Auto) 0.0, Sodium 139, Potassium 4.6, Chloride 108 H, Carbon Dioxide 33 H, Anion Gap 2.6 L, BUN 33 H, Creatinine 1.60 H, Estimated Creat Clear 28, Estim ated GFR 41 L, Est GFR ( Amer) 50 L, Glucose 101 H, Calcium 8.5 I & O for Labs for Last 24 Hours: Intake & Output 06/15/24 06/16/24 06/17/24 06/18/24 23:59 23:59 23:59 23:59 Intake Total 870 / 1050 1260 / 1260 860 / 860 Output Total 700 / 700 1300 / 1300 550 / 550 550 / 550 Balance 170 / 350 -40 / -40 310 / 310 -550 / -550 Weight 59.874 kg 62.686 kg 62.76 kg 61.28 kg The patient's infection will respond to the chosen ABx?: Yes (BLOOD CX = NO GROWTH AT 24 HR, AFEBRILE OVER 24 HR, WHITE COUNT 7.9) Is the patient receiving the right drug, dose, and route?: Yes Could a more targeted ABx be ordered?: No How long ABx needed (days)?: 7
[2024-06-18] MEDS: LORATADINE 10MG TABLET 10 MG PO (09:05)
[2024-06-18] MEDS: DAPAGLIFLOZIN PROPANEDIOL 10 MG TABLET PO (09:05)
[2024-06-18] MEDS: DOXYCYCLINE HYCL 100 MG TABLET PO (09:05)
[2024-06-18] MEDS: FERROUS SULFATE 325MG 325 MG PO ×2 (09:05→13:24)
[2024-06-18] MEDS: METOPROLOL TARTRATE 25MG TABLET 12.5 MG PO (09:06)
[2024-06-18] MEDS: CEFTRIAXONE SODIUM 1 GM in 0.9 % SODIUM CHLORIDE 50 ML IV (09:09)
--- NOTE | 2024-06-18 09:41 | P.PN_ITS ---
Subjective *Date: 06/18/24 *Time: 12:32 Interval history: No acute respiratory vents overnight. Patient denies any new respiratory complaints. Pulmonology Exam Inpatient Vital signs and Labs for Last 24 Hours: Temp Pulse Resp BP Pulse Ox O2 Del Method O2 Flow Rate 98.2 F 107 H 18 133/73 89 L Nasal Cannula 2 06/18/24 07:30 06/18/24 07:30 06/18/24 07:30 06/18/24 07:30 06/18/24 07:30 06/18/24 09:00 06/18/24 09:00 FiO2 40 06/16/24 06:46 Laboratory Results - last 24 hr 06/15/24 12:30: Fluid Glucose 126, Fluid Total Protein 1.9, Fluid Albumin 1.3, Fluid LDH 120 06/18/24 06:33: WBC 7.9, RBC 3.27 L, Hgb 9.6 L, Hct 32.1 L, MCV 98.2 H, MCH 29.4, MCHC 29.9 L, RDW 15.9, Plt Count 210, MPV 9.6, Neut % (Auto) 77.0, Lymph % (Auto) 7.5 L, [place] % (Auto) 13.3 H, Eos % (Auto) 1.5, Baso % (Auto) 0.3, Neut # (Auto) 6.1, Lymph # (Auto) 0.6 L, [place] # (Auto) 1.1 H, Eos # (Auto) 0.1, Baso # (Auto) 0.0, Sodium 139, Potassium 4.6, Chloride 108 H, Carbon Dioxide 33 H, Anion Gap 2.6 L, BUN 33 H, Creatinine 1.60 H, Estimated Creat Clear 28, Estimated GFR 41 L, Est GFR ( Amer) 50 L, Glucose 101 H, Calcium 8.5 Temp Pulse Resp BP Pulse Ox O2 Del Method O2 Flow Rate 98.3 F 80 19 110/60 94 L Vapotherm 20 06/15/24 08:00 06/15/24 06:00 06/15/24 06:00 06/15/24 06:00 06/15/24 07:49 06/15/24 08:00 06/15/24 07:49 FiO2 40 06/15/24 07:49 Laboratory Results - last 24 hr 06/14/24 11:34: VBG pH 7.34, VBG pCO2 49.3, VBG pO2 37.3, VBG HCO3 25.8, VBG Total CO2 27.3 H, VBG O2 Saturation 62.9, VBG Base Excess -0.1, VBG Lactic Acid 1.5, SARS-CoV-2 (PCR) Not detected, Influenza A Untype (PCR) Not detected, Influenza Type B (PCR) Not detected 06/14/24 11:37: WBC 8.2, RBC 3.79 L, Hgb 11.6 L, Hct 36.5 L, MCV 96.4 H, MCH 30.5, MCHC 31.6 L, RDW 16.3, Plt Count 245, MPV 7.7, Neut % (Auto) 76.1, Lymph % (Auto) 12.6, [place] % (Auto) 9.6 H, Eos % (Auto) 1.1, Baso % (Auto) 0.5, Neut # (Auto) 6.2, Lymph # (Auto) 1.0, [place] # (Auto) 0.8, Eos # (Auto) 0.1, Baso # (Auto) 0.0, D-Dimer 1.18 H, Sodium 143, Potassium 5.1, Chloride 109 H, Carbon Dioxide 30, Anion Gap 9.1, BUN 36 H, Creatinine 2.00 H, Estimated Creat Clear 20, Estimated GFR 32 L, Est GFR ( Amer) 38 L, Glucose 101 H, Calcium 9.1, Total Bilirubin 1.2, AST 41, ALT 40, Alkaline Phosphatase 93, Troponin I 0.01, NT-Pro-B Natriuret Pep 54438 H, Total Protein 7.0, Albumin 3.9, Globulin 3.1, Albumin/Globulin Ratio 1.3 06/14/24 14:35: Troponin I 0.01 06/14/24 17:30: Troponin I < 0.01 06/14/24 : Chlamy pneumoniae PCR Not detected, Adenovirus (PCR) Not detected, B. pertussis DNA (PCR) Not detected, Coronavirus OC43 (PCR) Not detected, Coronavirus HKU1 (PCR) Not detected, Coronavirus 229E (PCR) Not detected, SARS-CoV-2 (PCR) Not detected, Coronavirus NL63 (PCR) Not detected, Human Metapneumovir PCR Not detected, Influenza A (H1) PCR Not detected, Influ A (H1N1/09) PCR Not detected, Influenza A (H3) PCR Not detected, Influenza Type A (PCR) Not detected, Influenza Type B (PCR) Not detected, M. pneumoniae (PCR) Not detected, Parainfluenza 1 (PCR) Not detected, Parainfluenza 2 (PCR) Not detected, Parainfluenza 3 (PCR) Not detected, Parainfluenza 4 (PCR) Not detected, RSV (PCR) Not detected, Entero/Rhino (PCR) Not detected 06/15/24 05:46: WBC 14.2 H D, RBC 3.58 L, Hgb 11.0 L, Hct 34.5 L, MCV 96.4 H, MCH 30.8, MCHC 31.9, RDW 16.5, Plt Count 215, MPV 8.1, Neut % (Auto) 88.3 H, Lymph % (Auto) 3.9 L, [place] % (Auto) 7.4, Eos % (Auto) 0.1, Baso % (Auto) 0.2, Neut # (Auto) 12.5 H, Lymph # (Auto) 0.6 L, [place] # (Auto) 1.1 H, Eos # (Auto) 0.0, Baso # (Auto) 0.0, Total Counted 100, Neutrophils % (Manual) 85 H, Lymphocytes % (Manual) 4 L, Monocytes % (Manual) 10 H, Eosinophils % (Manual) 1, Platelet Estimate Normal, RBC Morphology Normal, Sodium 139, Potassium 4.5, Chloride 106, Carbon Dioxide 32 H, Anion Gap 5.5, BUN 37 H, Creatinine 1.90 H, Estimated Creat Clear 23, Estimated GFR 34 L, Est GFR ( Amer) 41 L, Glucose 88, Calcium 8.7, Magnesium 2.0, Total Bilirubin 1.3, AST 33, ALT 33, Alkaline Phosphatase 78, Total Protein 6.2 L, Albumin 3.3 L D, Globulin 2.9, Albumin/Globulin Ratio 1.1 I & O for Labs for Last 24 Hours: Intake & Output 06/15/24 06/16/24 06/17/24 06/18/24 23:59 23:59 23:59 23:59 Intake Total 870 / 1050 1260 / 1260 860 / 860 350 / 350 Output Total 700 / 700 1300 / 1300 550 / 550 550 / 550 Balance 170 / 350 -40 / -40 310 / 310 -200 / -200 Weight 132 lb 138 lb 3.2 oz 138 lb 5.794 oz 135 lb 1.6 oz Intake & Output 06/12/24 06/13/24 06/14/24 06/15/24 23:59 23:59 23:59 23:59 Intake Total 120 / 360 480 / 480 Output Total 1950 / 2650 700 / 700 Balance -1830 / -2290 -220 / -220 Weight 142 lb 11.2 oz 132 lb Constitutional: Present severe distress Head: Present normocephalic and atraumatic ENT: Present normal exam, normal oropharynx and mucous membranes moist Neck: Present normal inspection and full ROM Respiratory: Present respiratory distress, crackles, diminished air movement and able to speak in complete sentences Cardiac: Present S1/S2, Tachycardia and radial pulses present GI: Present soft and distention; Absent tenderness or guarding Skin: Present intact; Absent cyanosis or jaundice Neuro: Present alert, awake and oriented x 3 Extremities: Present normal inspection; Absent clubbing or cyanosis Psychiatric: Present normal affect and cooperative Assessment and Plan *Assessment and plan (1) Pleural effusion, bilateral: Status: Acute Category: Medical Code(s): J90 - Pleural effusion, not elsewhere classified (2) Acute hypoxic respiratory failure: Status: Acute Category: Medical Code(s): J96.01 - Acute respiratory failure with hypoxia Plan Mr. Shaw is a 89-year-old male presented today with worsening respiratory distress and bilateral lower extremity edema and pulmonary was called for further evaluation and management. He denies any significant smoking history. Not having any respiratory symptoms couple of months ago. Progressively worsening respiratory chest for the last 2 to 3 weeks bilateral worsening lower extremity swelling. Chest x-ray on admission no dense consolidative airspace changes noted. Bilateral pleural effusion right greater than left. Afebrile. Hemodynamically stable. Mild neutrophilic predominant leukocytosis. Comprehensive respiratory viral PCR panel negative. Currently receiving Lasix for possible CHF exacerbation. Improving concerning creatinine status post diuresis and thoracentesis. Lower EXTR venous Doppler negative for DVT. Pleural fluid studies likely transudative effusion. Cultures no growth so far. Interval update: No acute respiratory vents overnight. Stable oxygen commands at 1 to 2 L. Plan: Continue nasal oxygen supplementation to maintain O2 saturation goal of 90% and above currently needing 1 to 2 L. Follow with final pleural fluid studies DuoNebs 4 times daily as needed Continue ceftriaxone azithromycin to complete a total of 5-day course. Antibiotics can be weaned to cefdinir upon discharge. # Thank you for involving pulmonary in this patient care. Will follow the patient in pulmonary clinic 2 to 4 weeks post discharge.
--- NOTE | 2024-06-18 09:48 | CARE MANAGER ---
Addendum entered by Sonja Webster 06/19/24 10:47: Patient information/order faxed to [facility]. Lizbet goldberg/ [facility] stated that patient has been accepted for services. Original Note: Spoke with patient regarding need for home oxygen and home health services. Patient is agreeable to both using [facility] as DME and any agency for home health services. Faxed information to [facility]. JESIKA Campos
[2024-06-18 11:32] VITALS: BP 135/83; PULSE 111; RESP 18; TEMP 36.8; O2SAT 92
[2024-06-18 12:43] VITALS: BMI 18.8
--- NOTE | 2024-06-18 14:19 | P.PN_ITS ---
Subjective *Date: 06/18/24 *Time: 14:19 Medical Exam Vital signs and Labs for Last 24 Hours: Vital Signs Temp Pulse Resp BP Pulse Ox O2 Del Method O2 Flow Rate 06/18/24 13:00 Nasal Cannula 2 06/18/24 11:32 98.3 F 111 H 18 135/83 92 L Nasal Cannula 06/18/24 11:00 Nasal Cannula 2 06/18/24 09:00 Nasal Cannula 2 06/18/24 08:00 Nasal Cannula 2 06/18/24 07:30 98.2 F 107 H 18 133/73 89 L Nasal Cannula 06/18/24 06:38 Nasal Cannula 2 06/18/24 05:00 Nasal Cannula 2 06/18/24 04:00 98.3 F 88 16 116/63 94 L Nasal Cannula 2 06/18/24 03:00 Nasal Cannula 2 06/18/24 00:57 Nasal Cannula 2 06/18/24 00:00 97.8 F 118 H 16 127/75 92 L Nasal Cannula 2 06/17/24 23:00 Nasal Cannula 2 06/17/24 20:45 Nasal Cannula 2 06/17/24 19:48 99.1 F 104 H 18 121/62 92 L Nasal Cannula 2 06/17/24 19:45 Nasal Cannula 2 06/17/24 18:25 Nasal Cannula 1 06/17/24 17:00 Nasal Cannula 1 06/17/24 16:00 98.6 F 115 H 18 120/71 96 Nasal Cannula 2 06/17/24 15:00 Nasal Cannula 1 Intake and Output 06/17/24 06/18/24 06/18/24 23:59 07:59 15:59 Intake Total 420 / 860 350 / 350 Output Total 0 / 550 550 / 550 Balance 420 / 310 -550 / -200 350 / -200 Intake: Intake, Oral Amount 420 / 780 350 / 350 Output: Output, Urine Amount 0 / 550 550 / 550 Other: Number of Unmeasured Voids 1 0 Weight 135 lb 1.6 oz 135 lb 1.588 oz Patient Weight 06/18/24 23:59 Weight 135 lb 1.588 oz Laboratory Results - last 24 hr 06/18/24 06:33: WBC 7.9, RBC 3.27 L, Hgb 9.6 L, Hct 32.1 L, MCV 98.2 H, MCH 29.4, MCHC 29.9 L, RDW 15.9, Plt Count 210, MPV 9.6, Neut % (Auto) 77.0, Lymph % (Auto) 7.5 L, [place] % (Auto) 13.3 H, Eos % (Auto) 1.5, Baso % (Auto) 0.3, Neut # (Auto) 6.1, Lymph # (Auto) 0.6 L, [place] # (Auto) 1.1 H, Eos # (Auto) 0.1, Baso # (Auto) 0.0, Sodium 139, Potassium 4.6, Chloride 108 H, Carbon Dioxide 33 H, Anion Gap 2.6 L, BUN 33 H, Creatinine 1.60 H, Estimated Creat Clear 28, Estimated GFR 41 L, Est GFR ( Amer) 50 L, Glucose 101 H, Calcium 8.5 I & O for Labs for Last 24 Hours: Intake & Output 06/15/24 06/16/24 06/17/24 06/18/24 23:59 23:59 23:59 23:59 Intake Total 870 / 1050 1260 / 1260 860 / 860 350 / 350 Output Total 700 / 700 1300 / 1300 550 / 550 550 / 550 Balance 170 / 350 -40 / -40 310 / 310 -200 / -200 Weight 132 lb 138 lb 3.2 oz 138 lb 5.794 oz 135 lb 1.588 oz Microbiology Reports for the Last 24 Hours: Microbiology 06/14/24 11:34 Blood Blood Culture - Preliminary NO GROWTH AFTER 4 DAYS 06/14/24 11:34 Blood Blood Culture - Preliminary NO GROWTH AFTER 4 DAYS Assessment and Plan *Assessment and plan (1) Acute hypoxic respiratory failure: Status: Acute Category: Medical Code(s): J96.01 - Acute respiratory failure with hypoxia (2) Edema of both legs: Status: Acute Category: Medical Code(s): R60.0 - Localized edema (3) Decompensated heart failure: Status: Acute Category: Medical Code(s): I50.9 - Heart failure, unspecified (4) Pleural effusion, right: Status: Acute Category: Medical Code(s): J90 - Pleural effusion, not elsewhere classified (5) Pulmonary edema: Status: Acute Category: Medical Code(s): J81.1 - Chronic pulmonary edema (6) Atrial fibrillation with RVR: Status: Acute Category: Medical Code(s): I48.91 - Unspecified atrial fibrillation (7) HBP (high blood pressure): Status: Acute Category: Medical Code(s): I10 - Essential (primary) hypertension (8) Renal insufficiency: Status: Acute Category: Medical Code(s): N28.9 - Disorder of kidney and ureter, unspecified (9) Hypotension: Status: Acute Category: Medical Code(s): I95.9 - Hypotension, unspecified (10) Pleural effusion, bilateral: Status: Acute Category: Medical Code(s): J90 - Pleural effusion, not elsewhere classified (11) Right ventricular dysfunction: Status: Acute Category: Medical Code(s): I51.9 - Heart disease, unspecified Plan OK for discharge today. Home oxygen has been arranged. Spoke to Cardiology, plan for 2 week even monitor.
[2024-06-18 16:00] VITALS: BP 138/87; PULSE 115; RESP 18; TEMP 37.1; O2SAT 96
--- NOTE | 2024-06-18 16:12 | PC.NURSE ---
Placed cardiac event monitor on patient, directions given patient voiced understanding.
--- NOTE | 2024-06-19 15:33 | P.DS_ITS ---
General Admission date:: 06/14/24 Discharge date: 06/18/24 HPI HPI HPI: Mr. Shaw is AN 89-year-old male with a history of hypertension, mitral valve prolapse, atrial fibrillation, basal cell carcinoma, rectal bleeding, diverticulosis, and chronic kidney disease who presented to [facility] with progressive edema in both bilateral lower extremities making it difficult to walk. He states he felt very weak. He states he was slightly short of breath but denied having any chest pain. He denies any cough or other respiratory symptoms. With evaluation in the emergency room white blood cell count was 8200 with a hemoglobin of 11.6 hematocrit 36.5. BUN was noted to be 36 with a creatinine of 2. GFR was 32. [employer] was 25,900. Chest x-ray showed right lower lobe consolidation infiltrates co ncerning for pneumonia and a small to moderate right pleural effusion. He was given 80 mg of Lasix IV 2b and heart failure with preserved ejection fraction and volume overload/decompensation. He was then admitted for further evaluation and treatment. This a.m. he states he did not sleep well due to the noise of the oxygen and other noises in the room. He did eat well for breakfast. He states he is not short of breath and does not have a cough. He remains on oxygen at 40% as per Vapotherm. Hospital Course Hospital Course Hospital Course: The patient was diuresed and an echo was ordered. He was placed on a team psychologist. Pulmonology was consulted as was cardiology. The umbrella tipper wanted him continued on high flow nasal oxygen and performed a right-sided thoracentesis due to a pleural effusion. He removed 1020 mL of straw-colored fluid. The patient's shortness of breath did improve, however his oxygen dropped without his Vapotherm. His echo showed an EF of 45% and elevated right- sided pressures. He had moderate right ventricular dilatation with severe reduction in RV function. He had a markedly elevated RVSP of 50 to 55 mmHg. He had a small posterior pericardial effusion but no indications of tamponade. He was continued on antibiotics for possible community-acquired pneumonia. Cardiology saw the patient and added Farxiga and wanted to follow-up with the patient on an outpatient basis and have a 2-week event monitor placed at discharge. He was finally able to be weaned to nasal cannula. Pulmonology wanted him continued on Rocephin and Zithromax to complete a total of 5-day course and felt antibiotics could be weaned to cefdinir upon discharge. He was able to be weaned from 5 L nasal cannula to 2 L but was unable to be completely weaned from his oxygen. His oxygen sat on room air at rest was 86%. By 06/18/2024 it was felt he could be discharged home, but would need home oxygen. A 2-week event monitor was placed. He will follow-up with cardiology, pulmonology, and Dr. Sinclair. Exam Data for Last 24 hours Vital signs and Labs for Last 24 Hours: Temp Pulse Resp BP Pulse Ox O2 Del Method O2 Flow Rate 98.7 F 115 H 18 138/87 96 Nasal Cannula 2 06/18/24 16:00 06/18/24 16:00 06/18/24 16:00 06/18/24 16:00 06/18/24 16:00 06/18/24 16:24 06/18/24 16:24 FiO2 40 06/16/24 06:46 I & O for Last 24 hours: Intake & Output 06/17/24 06/18/24 06/19/24 06/20/24 11:59 11:59 11:59 11:59 Intake Total 1160 / 1160 770 / 770 0 / 0 Output Total 1450 / 1450 550 / 550 Balance -290 / -290 220 / 220 0 / 0 Weight 138 lb 5.794 oz 135 lb 1.6 oz 135 lb 1.588 oz Microbiology Reports for the Last 24 Hours: Microbiology 06/14/24 11:34 Blood Blood Culture - Final NO GROWTH AFTER 5 DAYS 06/14/24 11:34 Blood Blood Culture - Final NO GROWTH AFTER 5 DAYS Narrative: Constitutional Constitutional: no acute distress and thin Comments: Sitting up in the bed and appears comfortable. *Routine HEENT Exam Head: Present normocephalic and atraumatic Eye: Present PERRL; Absent conjunctival icterus, scleral injection or conjunctivae pink ENT: Present mucous membranes moist and oropharynx clear *Routine Neck Exam Neck: Present supple; Absent carotid bruit, lymphadenopathy or thyromegaly *Routine Respiratory Exam Respiratory: Present diminished air movement (on right side) and symmetric chest movement Comments: Diminished breath sounds on the right. *Routine Cardiovascular Exam Cardiovascular: Present murmur and irregular rhythm *Routine Abdominal Exam Abdominal: Present normoactive bowel sounds; Absent tenderness or distended *Routine Rectal Exam Rectal:: deferred *Routine Genitalia Exam Genitalia:: deferred *Routine Extremities Exam Extremities: Present edema (Bilateral lower extremities) *Routine Neurological Exam Neurological: Present alert and oriented X3 DS: Diagnosis Discharge Diagnosis (1) Acute hypoxic respiratory failure: Status: Acute Code(s): J96.01 - Acute respiratory failure with hypoxia (2) Edema of both legs: Status: Acute Code(s): R60.0 - Localized edema (3) Decompensated heart failure: Status: Acute Code(s): I50.9 - Heart failure, unspecified (4) Pleural effusion, right: Status: Acute Code(s): J90 - Pleural effusion, not elsewhere classified (5) Pulmonary edema: Status: Acute Code(s): J81.1 - Chronic pulmonary edema (6) Atrial fibrillation with RVR: Status: Acute Code(s): I48.91 - Unspecified atrial fibrillation (7) HBP (high blood pressure): Status: Acute Code(s): I10 - Essential (primary) hypertension (8) Renal insufficiency: Status: Acute Code(s): N28.9 - Disorder of kidney and ureter, unspecified (9) Hypotension: Status: Acute Code(s): I95.9 - Hypotension, unspecified (10) Pleural effusion, bilateral: Status: Acute Code(s): J90 - Pleural effusion, not elsewhere classified (11) Right ventricular dysfunction: Status: Acute Code(s): I51.9 - Heart disease, unspecified Meds Home Medications and Allergies Home Medications ?Medication ?Instructions ?Recorded ?Confirmed ?Type ferrous sulfate 325 mg (65 mg 325 mg PO TID 11/28/23 06/14/24 History iron) tablet (FeroSul) multivitamin (Daily Multi-Vitamin 1 tab PO DAILY 11/28/23 06/14/24 History tablet) atorvastatin 40 mg tablet (Lipitor) 40 mg PO HS #30 tabs 12/04/23 06/14/24 Rx rivaroxaban 15 mg tablet (Xarelto) 15 mg PO QPMWITHMEAL 02/20/24 06/14/24 History amlodipine 2.5 mg tablet 2.5 mg PO DAILY #30 tabs 04/29/24 06/14/24 Rx furosemide 20 mg tablet 20 mg PO DAILY 06/14/24 06/14/24 History loratadine 10 mg tablet 10 mg PO DAILY 06/14/24 06/14/24 History cefdinir 300 mg capsule 300 mg PO Q12H #10 caps 06/18/24 Rx dapagliflozin propanediol 10 mg 10 mg PO DAILY #30 tabs 06/18/24 Rx tablet (Farxiga) metoprolol succinate 50 mg 50 mg PO DAILY #30 tabs 06/18/24 Rx tablet,extended release 24 hr New Prescriptions to Start Prescriptions: cefdinir Arturo Sinclair dapagliflozin propanediol [Farxiga] Arturo Sinclair metoprolol succinate Arturo Sinclair Allergies Allergy/AdvReac Type Severity Reaction Status Date / Time aspirin Allergy Other Verified 04/29/24 14:39 Discharge Plan Disposition Patient Disposition: Home Health Service Condition: Fair Discharge Order Discharge Orders: Discharge Order (Routine); Ordered 06/18/24 Ordered By: Arturo Sinclair Follow up Plan Follow up with: Arturo Sinclair MD [Primary Care Provider] - 07/10/24 2:15 pm Arturo Hanna PA [Physician Instructor Knitting] - 07/07/24 2:15 pm Yessi Ramírez MD [Physician] - 07/13/24 1:20 pm Prescriptions/Medication Reconciliation: New metoprolol succinate 50 mg tablet extended release 24 hr 50 mg PO DAILY Qty: 30 0RF dapagliflozin propanediol [Farxiga] 10 mg tablet 10 mg PO DAILY Qty: 30 0RF cefdinir 300 mg capsule 300 mg PO Q12H Qty: 10 0RF Continued multivitamin [Daily Multi-Vitamin] Tablet 1 tab PO DAILY Xarelto 15 mg tablet 15 mg PO QPMWITHMEAL amlodipine 2.5 mg tablet 2.5 mg PO DAILY Qty: 30 2RF ferrous sulfate [FeroSul] 325 mg (65 mg iron) tablet 325 mg PO TID atorvastatin [Lipitor] 40 mg Tablet 40 mg PO HS Qty: 30 3RF furosemide 20 mg tablet 20 mg PO DAILY Patient Comments: TAKE 1 TABLET BY MOUTH ONCE DAILY loratadine 10 mg tablet 10 mg PO DAILY Patient Comments: TAKE 1 TABLET BY MOUTH ONCE DAILY Discontinued lisinopril 20 mg tablet 20 mg PO DAILY Patient Comments: TAKE 1 TABLET BY MOUTH ONCE DAILY FOR 90 DAYS metoprolol succinate 200 mg tablet extended release 24 hr 200 mg PO DAILY Patient Comments: TAKE 1 TABLET BY MOUTH ONCE DAILY FOR HIGH BLOOD PRESSURE Problem Reconciliation Problems Reviewed?: Yes Patient Discharge Instructions ACTIVITY: Continue current activity DIET: low salt diet Additional Instructions: Home health PT/OT and senior care evaluate and treat Patient Instructions: DI for Heart Failure, DI for High Blood Pressure Print Language: Z[place]ian Providers Primary Care Provider: Arturo Sinclair Admit Provider: Sotero Ordoñez Attending Provider: Arturo Sinclair
--- NOTE | 2024-06-22 11:37 | SW/DCPLANNER ---
Spoke with patient on the phone. Patient stated that he is doing very well and that he was able to get his medicine picked up at [facility]. Patient stated that he is aware of his upcoming appointments and that he has no concerns or queations at this time. Gio AN Mail Order Clerk
== END 2024-06-18 17:03 | disposition home health service (06) | DRG 682 ==
LOC: ER 12:27 → 2ND 06-15 00:07 → ICU 06-15 16:24 → 2ND 06-17 13:57
PROVIDERS: Internal Medicine Pulmonary Disease; Admitting Provider Internal Medicine Adolescent Medicine; Emergency Provider Student in an Organized Health Care Education/Training Program; PCP Family Medicine; Visit Provider Family Medicine
DX: I12.9 Hypertensive chronic kidney disease with stage 1 through stage 4 chronic kidney disease, or unspecified chronic kidney disease (principal); I50.23 Acute on chronic systolic (congestive) heart failure; J96.00 Acute respiratory failure, unspecified whether with hypoxia or hypercapnia; J81.1 Chronic pulmonary edema; I48.20 Chronic atrial fibrillation, unspecified; I34.1 Nonrheumatic mitral (valve) prolapse; Z85.828 Personal history of other malignant neoplasm of skin; N18.9 Chronic kidney disease, unspecified; I25.10 Atherosclerotic heart disease of native coronary artery without angina pectoris; Z95.5 Presence of coronary angioplasty implant and graft; E78.5 Hyperlipidemia, unspecified
CPT/HCPCS: 32554; 32555; 36415; 71045; 80048; 80053; 82042; 82803; 82945; 83615; 83735; 83880; 84155; 84484; 85007; 85025; 85378; 87040; 87633; 87636; 88112; 88305; 89051; 93005; 93270; 93306; 93970; 94760; 94761; 97163; 97165; 99291; J0696; J1940

== ENCOUNTER 2024-07-13 14:03 | Outpatient (CLI) | payer MEDICARE, OTHER, SELFPAY ==
--- NOTE | 2024-07-13 14:12 | XR_ITS ---
FINAL REPORT CLINICAL HISTORY: SOB COMPARISON: 06/15/2024 FINDINGS: Moderate bilateral pleural effusions are present, as well as moderate atelectasis, worse than seen on the prior exam of 06/15/2024. Mild cardiomegaly is present. The upper lung zuluaga are clear. IMPRESSION: Enlarging bilateral pleural effusions when compared with the prior exam. Reviewed, Interpreted and Dictated by Watson Chambers MD Transcribed by Jenniffer Truong Authenticated and . [facility]
== END 2024-07-13 23:59 | disposition home or self-care (01) ==
LOC: RAD 14:06
PROVIDERS: PCP Family Medicine; Visit Provider Internal Medicine Pulmonary Disease
DX: R06.02 Shortness of breath (principal)
CPT/HCPCS: 71046